=== PATIENT | male | born 1965 | race Hispanic/Latino ===

== ENCOUNTER → 2017-09-02 | Day surgery (SDC) | payer MEDICARE ==
[~2017-09-02] MED LIST: DEXTROSE 5% 250ML 250 ML IV ONE; FENTANYL CITRATE/PF 100MCG/2 ML INJ ONE; HYDRALAZINE HCL 20 MG/ML VIAL ONE; LANTUS 3ML100 UNITS/ SQ; MIDAZOLAM HCL 2 MG/2 ML VIAL ONE; MYFORTIC360 MG PO; NEORAL100 MG PO; NEORAL25 MG PO; NOVOLOG100 UNIT/1 SQ; OR PHACO EYE KIT ONE; PRAVASTATIN SOD40 MG PO; PREDNISONE5 MG PO; PREOP PHACO EYE KIT ONE; RAMIPRIL5 MG PO; SODIUM CHLORIDE 0.9% 500ML 0 ML ONE; TORSEMIDE10 MG PO; VITAMIN D1000 UNI1 PO
--- NOTE | 2017-09-02 18:28 | Operative Report ---
DATE OF PROCEDURE: September 02, 2017 PREOPERATIVE DIAGNOSES 1. Visually significant cataract of the right eye. 2. Poor dilation of the right eye. POSTOPERATIVE DIAGNOSES 1. Visually significant cataract of the right eye. 2. Poor dilation of the right eye. PROCEDURE: Complicated phacoemulsification with posterior chamber intraocular lens. ANESTHESIA: MAC. COMPLICATIONS: None. LENS: Monico SN60WF, 21.0-diopter lens. PROCEDURE IN DETAIL: The patient was taken to the operating room where he had tetracaine drops placed in the eye. The patient's eye was then prepped and draped in the usual sterile ophthalmic fashion. A lid speculum was placed in the eye. A side-port incision was made, and 0.2 mL of 1% lidocaine preservative free was injected in the anterior chamber. Viscoelastic was placed in the anterior chamber and a keratome was used to make a temporal clear cornea incision. Due to poor dilation and poor view of the cataract, a Malyugin ring was used to dilate the pupil, and then a cystotome and Utrata forceps were used to create an anterior capsulorrhexis without any complications. Hydrodissection and hydrodelineation were then performed, and a good fluid wave was noted. A phacoemulsification probe was placed in the eye, and the nucleus was phacoemulsified using the [id number] technique. Irrigation and aspiration handpiece was then used to remove any residual cortical material. Viscoelastic was placed in the capsular bag. An Monico SN60WF, 21.5-diopter lens was placed into the bag without any complications. The irrigation and aspiration handpiece was used to remove any residual viscoelastic material from within the eye. Miostat was injected in the anterior chamber. The wound was checked to make sure there was no evidence of leakage. Once this was done the Malyugin ring was then removed. Two drops of Vigamox were placed in the eye, along with Maxitrol ointment, patch and Allen shield. The patient tolerated the procedure well and was taken to the recovery room. The patient will be seen in my office tomorrow. Job#: [id number]
== END | disposition home or self-care (01) ==
LOC: OR 09:31
PROVIDERS: ATTEND Ophthalmology
DX: H25.11 Age-related nuclear cataract, right eye (principal); H57.09 Other anomalies of pupillary function; I69.398 Other sequelae of cerebral infarction; H53.8 Other visual disturbances; E11.22 Type 2 diabetes mellitus with diabetic chronic kidney disease; I12.0 Hypertensive chronic kidney disease with stage 5 chronic kidney disease or end stage renal disease; N18.6 End stage renal disease; Z94.0 Kidney transplant status; Z01.810 Encounter for preprocedural cardiovascular examination; Z79.4 Long term (current) use of insulin
CPT/HCPCS: 36415; 66982; 82948; 93005; J0360; J2250; V2632; J7040

== ENCOUNTER 2018-08-16 16:46 | Inpatient (IN) | payer MEDICARE ==
[~2018-08-16] VITALS: Ht 167.6 cm; Wt 76.2 kg
[~2018-08-16 16:46] MED LIST changes: -DEXTROSE 5% 250ML 250 ML IV ONE; -FENTANYL CITRATE/PF 100MCG/2 ML INJ ONE; -HYDRALAZINE HCL 20 MG/ML VIAL ONE; -MIDAZOLAM HCL 2 MG/2 ML VIAL ONE; -OR PHACO EYE KIT ONE; -PREOP PHACO EYE KIT ONE; -SODIUM CHLORIDE 0.9% 500ML 0 ML ONE
--- OUTSIDE RECORDS SUMMARY | 2018-08-16 16:49 | XMS REPORT ---
Author Author [facility] Address Unknown Phone Unavailable Care Team Providers [employer] Life Claims Examiner Name Role Phone Unavailable Unavailable Payers Payer Name Policy Type Policy Number Effective Date Expiration Date Problems This patient has no known problems. Allergies, Adverse Reactions, Alerts Allergy Name Allergy Type Status Severity Reaction(s) Onset Date Inactive Date Treating Clinician Comments No Known Allergies DA Active U 2011-08-16 00:00:00 Medications This patient has no known medications.
[2018-08-16] MEDS ORDERED: HYDROCODONE/APAP 10MG-325MG TAB PO ONE (17:00)
[2018-08-16] MEDS ORDERED: SODIUM CHLORIDE FLUSH 10 ML SYR INJ PRN (17:30)
[2018-08-16] MEDS ORDERED: VANCOMYCIN 1GM/NS 250 ML 250 ML IV SCH (17:30)
[2018-08-16] MEDS ORDERED: MORPHINE SULFATE INJ 4 MG/ML INJ 1ML IV PRN (17:30)
--- NOTE | 2018-08-16 17:39 | Diagnostic Imaging Report ---
Exam: Right foot 3 views History: Pain, evaluate for gas Comparison: None. Findings: Erosive change involving the proximal phalanx with cortical destruction medially. Erosive change of the distal phalanx third toe. Mild multilevel degenerative change. Vascular calcifications. Impression: Possible osteomyelitis of the proximal phalanx of the hallux and distal phalanx of the third toe. No soft tissue gas. Signed by: Dr. Dl Borden M.D. on 08/16/2018 5:35 PM
[2018-08-16] MEDS ORDERED: DEXTROSE 50% SYRINGE 50 ML IV PRN (17:45)
[2018-08-16 18:15] LABS: BASOPHILS % 0.1 % (0.0-1.0); EOSINOPHILS % 0.2 % (0.0-6.0); HEMATOCRIT 34.8 % (38.2-49.6); HEMOGLOBIN 11.2 g/dL (14.0-18.0); LYMPHOCYTES # (AUTO) 1.1 (1.0-3.2); LYMPHOCYTES % 7.4 % (18.0-39.1); MEAN CORPUSCULAR HGB CONC 32.2 g/dL (31-35); MEAN CORPUSCULAR VOLUME 90.2 fL (81-99); MONOCYTES # (AUTO) 1.1 (0.2-0.8); MONOCYTES % 7.5 % (4.4-11.3); NEUTROPHILS # (AUTO) 12.1 (2.1-6.9); NEUTROPHILS % 84.5 % (38.7-80.0); PLATELET COUNT 296 x10e3/uL (140-360); RED BLOOD COUNT 3.86 x10e6/uL (4.3-5.7); RED CELL DISTRIBUTION WIDTH 12.2 % (11.7-14.4)
[2018-08-16 18:21] LABS: ALBUMIN/GLOBULIN RATIO 0.6 (0.8-2.0); ANION GAP 14.6 mmol/L (8-16); CALCIUM 10.1 mg/dL (8.4-10.2); CREATININE, SERUM 2.3 mg/dL (0.72-1.25); POTASSIUM 4.6 mmol/L (3.5-5.1)
[2018-08-16 18:32] LABS: BILIRUBIN,URINE NEGATIVE (NEGATIVE); CLARITY,URINE CLEAR (CLEAR); COLOR,URINE YELLOW (YELLOW); KETONES,URINE NEGATIVE (NEGATIVE); LEUKOCYTE ESTERASE ,URINE NEGATIVE (NEGATIVE); NITRITE,URINE NEGATIVE (NEGATIVE); PROTEIN,URINE DIPSTICK NEGATIVE (NEGATIVE); URINE UROBILINOGEN 0.2 mg/dL (0.2 - 1)
[2018-08-16 18:36] LABS: RBC,URINE 0-5 /HPF (0-5); WBC,URINE (MAN) 0-5 /HPF (0-5)
[2018-08-16 18:37] LABS: EPITHELIAL CELLS,URINE RARE /LPF
--- NOTE | 2018-08-16 18:37 | NUR ---
Patient admitted to unit from ER. Patient arrived via stretcher. patient is AAOx3. Patient lung pedro clear to auscultation. Bowel sounds present x4. 2+ edema noted to right foot with pedal pulses palpable. Patient ambulates on his own with assist due to right foot pain. Right foot third toe necrotic with redness up the foot. No c/o pain at this time. Right wrist 20G IV in place. No s/s of distress noted.
[2018-08-16 18:49] VITALS: BP 189/76
[2018-08-16] MEDS ORDERED: PLAVIX75 MG PO (18:49)
[2018-08-16 18:50] VITALS: BP 189/76
[2018-08-16 19:10] VITALS: BP 189/76
--- NOTE | 2018-08-16 19:10 | NUR ---
PATIENT LYING IN BED, NO DISTRESS OBSERVED. REDNESS TO THE RIGHT FOOT WITH 3RD DIGIT ON THE RIGHT FOOT NECROTIC. FOUL ODOR NOTED FROM THE TOE, NO DRAINAGE OBSERVED AND PATIENT DENIES PAIN TO THE FOOT. RIGHT LEG ELEVATED ON PILLOW FOR COMFORT, CALL LIGHT AND URINAL WITHIN EASY REACH, PATIENT INSTRUCTED TO CALL FOR ASSISTANCE NEEDED.
[2018-08-16 20:38] VITALS: BP 152/87
[2018-08-16] MEDS: CYCLOSPORINE 25 MG CAP PO SCH (21:00)
[2018-08-16] MEDS: RAMIPRIL 5 MG CAP PO SCH (21:00)
[2018-08-16] MEDS: INSULIN REGULAR, HUMAN 100 UNIT/1 ML 3ML VIAL SQ SCH (21:00)
--- NOTE | 2018-08-16 21:20 | NUR ---
PATIENT STATED HE PREFERS TO TAKE HIS OWN ANTIREJECTION MEDICATION AND BLOOD PRESSURE MEDICATION. BLOOD PRESSURE 152/87, HEART RATE 71, PATIENT HAS TAKEN HIS MEDICATIONS.
[2018-08-16] MEDS ORDERED: PIPER-TAZ 3.375 GM 50 ML IV SCH (22:00)
[2018-08-16] MEDS ORDERED: SODIUM CHLORIDE 0.9% 50ML 50 ML ONE (23:12)
[2018-08-16] MEDS: PIPERACILLIN/TAZO 2.25 GM 50 ML IV SCH (23:17)
[2018-08-17] VITALS (8 sets, daily range): BP systolic 141–186; BP diastolic 49–69
--- NOTE | 2018-08-17 01:10 | NUR ---
WALKING ROUNDS MADE, PATIENT IS SOUNDLY ASLEEP WITHOUT RESPIRATORY DISTRESS. URINAL AND CALL LIGHT WITHIN EASY REACH.
[2018-08-17] MEDS ORDERED: VANCOMYCIN 500MG/NS 0.9% 100ML 100 ML IV SCH (05:00)
[2018-08-17] MEDS: PIPERACILLIN/TAZO 2.25 GM 50 ML IV SCH (06:05)
--- NOTE | 2018-08-17 07:00 | NUR ---
RCD PT AT BED PT IS ALERT AND ORIENTED ASSESSMENT DONE PT RESTING ON BED IV PATENT FAMILY AT BED SIDE BED LOW AND LOCKED CALL LIGHT IN REACH
[2018-08-17] MEDS: INSULIN LISPRO 100 UNIT/1 ML 3ML VIAL SQ SCH ×2 (07:30→16:30)
[2018-08-17] MEDS: INSULIN REGULAR, HUMAN 100 UNIT/1 ML 3ML VIAL SQ SCH ×4 (07:30→21:00)
[2018-08-17] MEDS: TORSEMIDE 10 MG TAB PO SCH ×2 (09:00→16:18)
[2018-08-17] MEDS: CHOLECALCIFEROL 1,000 UNIT TAB PO SCH (09:00)
[2018-08-17] MEDS: CLOPIDOGREL BISULFATE 75 MG TAB PO SCH (09:00)
[2018-08-17] MEDS: INSULIN GLARGINE 100 UNITS/ML VIAL SQ SCH (09:00)
[2018-08-17] MEDS: PREDNISONE 5 MG TAB PO SCH (09:00)
--- NOTE | 2018-08-17 09:14 | NUR ---
IMM letter delivered and explained to pt. He verbalized understanding. Pt stated that he prefers to have a Kinyarwanda copy. Kinyarwanda copy provided to pt. Signed copy filed in chart.
--- NOTE | 2018-08-17 11:51 | NUR ---
WOUND CARE CONSULTATION- INITIAL EVALUATION Patient admitted from Home to ER for pain to right foot with redness and swelling and bad odor. DX: Cellulitis of Right Foot with Gangrene of Toes HX: DM, HTN, CVA, Kidney Transplant. Wound Care Consulted for foot Ulcers. Dr. Mondragon on case for Cellulitis of foot and ABX management. Patient on IV ABX Dr. Ayden Miller consulted for Foot Ulcer Management. LABS: WBC14.31 HGB11.2 HCT34.8 NEUT%84.5 UJA205 ALB3.0 Foot X-Ray - Possible OM of proximal phalanx of hallux & Distal phalanx of 3rd Toe. No Soft Tissue gas. PATIENT VISIT: - Patient Pashto speaking primarily. Speaks some Qatari. - Patient is AAOX4. Calm and cooperative. - States right foot ulcers started when trimming toe nails and progressively worsened. - States - Dr. Rhodes performed angiogram March 2018 due to poor circulation with care afterwards of foot ulcers treated conservatively. - Right foot open to air during visit. Malodorous. - Tissue necrosis at 2nd and 3rd toes with mild erythema extending to dorsal mid foot. - Palpable but very weak dorsalis pedis and posterior tibial pulses present. - Dr. Paul Hensley to manage care of foot ulcers. IMPRESSION: Right Foot 2nd and 3rd Toe - DFU Grade 4. RECOMMENDATION: Conservative treatment at this time until evaluated by Dr. Ayden Miller. DPM 1. Right Foot 2nd and 3rd Toe - DFU Grade 4: - Cleanse area with Betadine moistened gauze - Apply Betadine moistened gauze dressing and wrap lightly with Kerlix Bandage 2. NWB Right Foot. Addendum: 08/17/18 at 1207 by Chema Calvert RN Amended: Links added.
[2018-08-17] MEDS: CEFEPIME 1GM/NS 0.9% 50 ML 50 ML IV SCH (14:45)
[2018-08-17] MEDS ORDERED: CEFEPIME HCL 1 GM VIAL IV SCH (14:45)
--- NOTE | 2018-08-17 15:16 | Diagnostic Imaging Report ---
Exam: Left foot 3 views History: Wound Comparison: None. Findings: Acute nondisplaced transverse fracture of the base of the fifth metatarsal with extension into the tarsometatarsal joint. Erosive changes about the first interphalangeal joint. Atherosclerotic vascular calcifications. No gross soft tissue defect or subcutaneous gas. Impression: Acute nondisplaced intra-articular fracture of the base of the fifth metatarsal. Lucencies in the proximal and distal phalanges of the hallux may represent subchondral cysts in the absence of erosive changes of the articular surfaces. Septic arthritis is felt to be less likely, though further evaluation with MRI with and without contrast may be obtained if clinically warranted. Signed by: Dr. Kevin Honeycutt M.D. on 08/17/2018 3:13 PM
--- NOTE | 2018-08-17 16:30 | NUR ---
Nutrition Screen Note RD Recommendation for Physician: -Continue ADA diet as ordered Plan of Care: RD following, monitoring for tolerance and adequacy Nutrition reason for involvement: Nutrition Risk Trigger MST Primary Diagnose(s): Cellulitis of Right Foot with Gangrene of Toes PMH: DM, HTN, CVA, Kidney Transplant. Ht: 66in Wt: 154lb BMI: 24.9kg/m2 IBW: 142lb RD Assessment: (3) Chart reviewed. Labs and meds reviewed. 52yo M, who was admitted for pain to right foot with redness, swelling and bad odor. Wound care following. On IV abx, Prednisone, and insulin. BG 88 156. Visited pt in room who denied significant wt loss, denied decrease in appetite RX SPECIALIST. Pt denied chewing/swallowing problems and nausea/vomiting. Pt has had fair appetite since admission. Will continue to monitor and follow. Please consult as needed. Current Diet: ADA diet Malnutrition Evaluation (08/17) The patient does not meet criteria for a specified degree of malnutrition at this time. Will re-evaluate at follow-up as appropriate. Diet Education Needs Assessment: Diet education not indicated. Nutrition Care Level: low Signed: Luma Laws, MS, RD, LD
--- NOTE | 2018-08-17 19:00 | NUR ---
PATIENT RESTING ON BED BED SIDE REPORT GIVEN TO ONCOMING NURSE
[2018-08-17] MEDS: CYCLOSPORINE 25 MG CAP PO SCH (21:00)
[2018-08-17] MEDS: RAMIPRIL 5 MG CAP PO SCH (21:00)
--- NOTE | 2018-08-17 22:41 | Consultation ---
DATE OF CONSULTATION: Consultation Note REASON FOR CONSULTATION: Right foot infection, gangrenous 3rd toe, recommendation of antibiotics. HISTORY OF PRESENT ILLNESS: This patient is a very pleasant 52-year-old Ethiopian male with diabetes mellitus, atherosclerotic disease, and peripheral vascular disease and hypertension. The patient comes in with gangrenous changes of his right 3rd toe. There is no specific trauma, but apparently, he is having some problem with his foot on the right for a few weeks now. He is known to Cardiology and he is also known to Podiatry. He is beginning oral antibiotic, but in spite of that, his foot is getting progressively worse. The patient is being admitted for vascular workup and amputation of the toe. I was asked to see him. Currently, lying in bed. He has no complaints. There is no pain, fever, chills, nausea, vomiting, or diarrhea. PAST MEDICAL HISTORY: Diabetes mellitus and atherosclerotic disease. PAST SURGICAL HISTORY: Denies. ALLERGIES: NKA. SOCIAL HISTORY: There is no smoking, drug abuse, or drug abuse. FAMILY HISTORY: Unremarkable. REVIEW OF SYSTEMS: HEENT: Negative. PULMONARY: Negative. CARDIAC: Negative. : Negative. SKIN: There is no other rash. PHYSICAL EXAMINATION: GENERAL: He is currently alert and oriented, does not seem to be in acute distress. VITAL SIGNS: Stable. Currently afebrile. HEENT: Not icteric. NECK: Supple. CHEST: Clear. HEART: S1 and S2, normal. ABDOMEN: Soft. Bowel sounds present. No tenderness. EXTREMITIES: On the right foot, there is gangrene change in the distal 3rd of the toe. IMPRESSION: 1. Gangrene of the 3rd toe, osteomyelitis, and peripheral vascular disease. Agree with vancomycin and agree with Zosyn. He will probably end up with the amputation of the toe. We will get an x-ray and MRI to assess for osteomyelitis and the extent of the infection. 2. Chronic kidney disease. 3. Atherosclerotic disease. We will adjust his medication accordingly. 4. We will follow. MD LUPE Piedra/JESENIA /[id number]
--- NOTE | 2018-08-17 22:46 | Consultation ---
DATE OF CONSULTATION: 08/17/2018 REASON FOR CONSULTATION: Gangrenous changes with cellulitis to the right foot with the patient being an insulin-dependent diabetic. HISTORY OF PRESENT ILLNESS: This is a pleasant 52-year-old male, who is seen at bedside accompanied by his spouse, who relates that he has had some issues to the forefoot aspect of the right foot for at least 5-6 months now. It started with bullae formation, abscess to the distal aspect of the third digit right foot, which became malodorous and black according to the patient several days ago. Also, it is starting to have discoloration to the second toe of the right foot and also discoloration to the fourth digit of the right with some ecchymoses also noted to the dorsolateral aspect to the left lower extremity after suffering a fall 2 weeks ago. The patient currently deny any history of fever or chills, vomiting nausea. PAST MEDICAL HISTORY: Remarkable for insulin-dependent diabetes, hypertension, CVA which affected his right lower extremity several years ago. PAST SURGICAL HISTORY: Remarkable for kidney transplant back in 2005, LASIK surgery for his eyes. ALLERGIES: THE PATIENT DENIES. CURRENT MEDICATIONS: Note listed in the chart including IV vancomycin and Zosyn. SOCIAL HISTORY: The patient denies any smoking, drinking, or recreational drug use. He has 1 kid, lives with his . FAMILY HISTORY: Noncontributory. LABORATORY DATA: white blood cell count of 14.3, hemoglobin 11.2, hematocrit 34.8 with a platelet count of 296. Blood glucose of 156. REVIEW OF SYSTEMS: CARDIAC: Denies any palpitations or arrhythmias. RESPIRATORY: Denies any shortness of breath or productive cough. GASTROINTESTINAL: Denies any diarrhea or constipation. GENITOURINARY: Denies any hematuria or problems voiding. PHYSICAL EXAMINATION: VITAL SIGNS: Afebrile, pulse rate 77, respirations 20, blood pressure 169/60, and O2 saturation 96%. PODIATRIC: Reveals the following vasculature, pedal pulses both the DP and PT to both lower extremities are greatly diminished. Skin temperature is warm and cold to touch. NEUROLOGIC: Reveals a decreased and protective sensation a Minerva-Quinn 5.07 monofilament wire. Muscle mass is symmetrical. Muscle strength is 3-4 out of 5 to all muscle groups of right foot, 4-5 out of 5 to all muscle groups of left. DERMATOLOGIC: Reveals dry gangrenous changes noted to the third digit of the right foot with some foul smell present. Gangrenous changes noted to the lateral aspect of second digit of the right foot with ulcer down to bone and some discoloration to the forefoot aspect of the right foot also discoloration to the fourth digit right. Ecchymoses noted to the left foot overlying the left foot and ankle area. ASSESSMENT: Gangrene, peripheral arterial disease, diabetic neuropathy with a grade 4 ulcer. PLAN: We will continue diluted wet-to-dry Betadine. We will let the foot demarcate. Dr. Jonathon Elizalde will be consulted for vascular evaluation. CBC with differential will be reevaluated. X-rays, 3 views of the left foot will be ordered. We will continue to treat the patient conservatively to see exactly at what level, both the patient and the patient's spouse understand that there will be an amputation needed, level to be determined. The patient may be scheduled possibly on or Friday depending on the demarcation of foot. BARBARA Roa/MIREYAL /[id number]
[2018-08-18] VITALS (8 sets, daily range): BP systolic 140–176; BP diastolic 60–74
[2018-08-18 05:51] LABS: BASOPHILS % 0.3 % (0.0-1.0); EOSINOPHILS # (AUTO) 0.1 (0.0-0.4); EOSINOPHILS % 0.5 % (0.0-6.0); HEMATOCRIT 29.8 % (38.2-49.6); HEMOGLOBIN 9.5 g/dL (14.0-18.0); LYMPHOCYTES # (AUTO) 1.6 (1.0-3.2); LYMPHOCYTES % 14.6 % (18.0-39.1); MEAN CORPUSCULAR HEMOGLOBIN 28.8 pg (28-32); MEAN CORPUSCULAR HGB CONC 31.9 g/dL (31-35); MEAN CORPUSCULAR VOLUME 90.3 fL (81-99); MONOCYTES % 9.2 % (4.4-11.3); NEUTROPHILS # (AUTO) 8.3 (2.1-6.9); NEUTROPHILS % 75.1 % (38.7-80.0); PLATELET COUNT 286 x10e3/uL (140-360); RED CELL DISTRIBUTION WIDTH 11.9 % (11.7-14.4)
--- NOTE | 2018-08-18 07:10 | NUR ---
REPORT GIVEN TO ONCOMING NURSE,WALKING ROUNDS MADE.PT RESTING IN BED WITH NO S/S OF DISTRESS.
[2018-08-18] MEDS: INSULIN LISPRO 100 UNIT/1 ML 3ML VIAL SQ SCH ×2 (07:30→16:30)
[2018-08-18] MEDS: INSULIN REGULAR, HUMAN 100 UNIT/1 ML 3ML VIAL SQ SCH ×4 (07:30→20:30)
--- NOTE | 2018-08-18 07:55 | Diagnostic Imaging Report ---
TECHNIQUE: Magnetic resonance imaging of the RIGHT foot was performed WITHOUT injected contrast. HISTORY: Pain COMPARISON: X-ray August 17, 2018 DISCUSSION: Limited evaluation due to incomplete fat suppression. Multifocal abnormal marrow signal forefoot including the proximal phalanx, first metatarsal and scattered around the tarsometatarsal joints with complex effusions. Around these areas, no visualized ulceration or sinus tract. Bone marrow edema and T1 replacement involving the distal phalanx of the second toe with abnormal adjacent ulceration. Generalized soft tissue edema and swelling. Fifth metatarsal base fracture not visualized. IMPRESSION: Osteomyelitis of the distal phalanx second toe. Multifocal abnormal marrow signal in an articular distribution with hypointense signal. Findings may be related to gout arthropathy or amyloid arthropathy Signed by: Dr. Dl Borden M.D. on 08/18/2018 7:52 AM
[2018-08-18] MEDS: INSULIN GLARGINE 100 UNITS/ML VIAL SQ SCH (09:00)
[2018-08-18] MEDS: PREDNISONE 5 MG TAB PO SCH (09:00)
[2018-08-18] MEDS: VANCOMYCIN 500MG/NS 0.9% 100ML 100 ML IV SCH (09:00)
[2018-08-18] MEDS: CLOPIDOGREL BISULFATE 75 MG TAB PO SCH (09:00)
[2018-08-18] MEDS: CHOLECALCIFEROL 1,000 UNIT TAB PO SCH (09:00)
[2018-08-18] MEDS: TORSEMIDE 10 MG TAB PO SCH ×2 (09:00→17:00)
[2018-08-18] MEDS ORDERED: SODIUM CHLORIDE 0.9% 250ML 250 ML ONE (10:04)
[2018-08-18] MEDS: CEFEPIME 1GM/NS 0.9% 50 ML 50 ML IV SCH (14:45)
--- NOTE | 2018-08-18 16:11 | Progress Note ---
DATE: 08/18/2018 SUBJECTIVE: The patient seen at bedside, doing somewhat better. Denies any history of fever, chills, nausea, or vomiting. OBJECTIVE: VITALS SIGNS: Afebrile, pulse rate 78, respiration 18, blood pressure 148/65, O2 saturation 97%. LABORATORY DATA: Labs show white blood cell count dropping to 11.3 from 14.3, hemoglobin 9.5, hematocrit 29.8 with a platelet count of 286, blood glucose of 116. Dry gangrenous changes noted to the third digit right foot with pregangrenous changes noted to the second toe, right with grade 3 ulceration/4 ulceration lateral aspect, second toe, right foot. Pedal pulses diminished. Decreased cellulitis noted to the dorsal aspect right foot. ASSESSMENT: Peripheral arterial disease with dry gangrene, grade 3/4 ulceration with pregangrenous changes noted to the second toe, right. We will continue to treat conservatively. Continue IV antibiotics. Awaiting vascular evaluation. The patient will end up needing surgical intervention sometime this week upon full demarcation. BARBARA Roa/JESENIA /[id number]
[2018-08-18] MEDS: ACETAMINOPHEN 325 MG TAB PO PRN (16:30)
--- NOTE | 2018-08-18 18:46 | NUR ---
PATIENT RESTING ON BED BED SIDE REPORT GIVEN TO ONCOMING NURSE
[2018-08-18] MEDS: CYCLOSPORINE 25 MG CAP PO SCH (21:00)
--- NOTE | 2018-08-18 22:32 | Consultation ---
DATE OF CONSULTATION: 08/18/2018 Cardiology consultation. CONSULTING PHYSICIAN: Jonathon Elizalde MD, Interventional Cardiology. REASON FOR CONSULTATION: Peripheral vascular disease. HISTORY OF PRESENT ILLNESS: Mr. Gordon is a 52-year-old man with a history of diabetes mellitus, hypertension, remote CVA, and CKD status post renal transplant in 2005, presenting with a gangrene and foul smell of the right 2nd toe tip and right 3rd distal to mid toe. He has been seen by Podiatry and is undergoing antibiotic treatment guided by Infectious Disease. Particularly, concerned given his immunosuppressed state, the foul smell and infection, for which he has been admitted. His most recent creatinine was 2.3. His most recent hemoglobin was 9.5 and his white count was 11,000. He did have prior revascularization to lower extremity. This new change occurred within the last week. REVIEW OF SYSTEMS: A 12-system reviewed, negative except for as noted above. Denies chest pain or shortness of breath. PAST MEDICAL HISTORY: As per HPI. ALLERGIES: NO KNOWN DRUG ALLERGIES. SOCIAL HISTORY: No active smoking, alcohol, or drugs. PHYSICAL EXAMINATION: VITAL SIGNS: Temperature 100.7, heart rate 76, blood pressure 146/62, respiratory rate 16, and O2 saturation 95%. GENERAL: In no acute distress, alert. NECK: No JVD. CHEST: Clear to auscultation. CARDIOVASCULAR: Regular rate and rhythm. Normal S1, S2. ABDOMEN: Soft, nontender. EXTREMITIES: Trace edema. Right 2nd and 3rd toe gangrene. LABORATORY DATA: Potassium 4.6, creatinine 2.3. White blood cells 11,000, hemoglobin 9.5, and platelets 286. Normal transaminases. CARDIOVASCULAR MEDICATIONS: Reviewed. Prednisone 5 mg daily, clopidogrel 75 mg daily, torsemide 10 mg b.i.d., cefepime and vancomycin, ramipril 10 mg at bedtime, cyclosporine 100 mg at bedtime. ASSESSMENT: 1. Peripheral vascular disease, presenting with osteomyelitis of the 2nd toe and gangrenous 2nd and 3rd toe with associated foul smell consistent with infection/cellulitis. 2. Anemia. 3. Chronic kidney disease in a patient with previous renal transplantation, on immunosuppressants. 4. Diabetes mellitus. 5. Hypertension. 6. Dyslipidemia. RECOMMENDATIONS: Arterial Doppler to assess the level of disease has been ordered. The patient will be at elevated risk of renal failure/contrast-induced nephropathy. Angiography for assessment of level of amputation advised and we will arrange if the patient is agreeable within the next 48 hours. Continue current cardiovascular medication. I thank Dr. Benoit, Dr. Miller, and Dr. Scott for the opportunity to participate in the care of this patient. Jonathon Elizalde MD AFMadeleine/MODL /[id number] MTDD
[2018-08-19] VITALS (7 sets, daily range): BP systolic 142–185; BP diastolic 63–82
[2018-08-19] MEDS: ACETAMINOPHEN 325 MG TAB PO PRN
[2018-08-19] MEDS: HYDRALAZINE HCL 25 MG TAB PO PRN (00:05)
[2018-08-19 05:08] LABS: BASOPHILS % 0.2 % (0.0-1.0); EOSINOPHILS % 0.2 % (0.0-6.0); HEMATOCRIT 34.6 % (38.2-49.6); LYMPHOCYTES # (AUTO) 1.2 (1.0-3.2); LYMPHOCYTES % 8.3 % (18.0-39.1); MEAN CORPUSCULAR HEMOGLOBIN 28.4 pg (28-32); MEAN CORPUSCULAR HGB CONC 31.8 g/dL (31-35); MEAN CORPUSCULAR VOLUME 89.4 fL (81-99); MONOCYTES # (AUTO) 1.2 (0.2-0.8); MONOCYTES % 8.2 % (4.4-11.3); NEUTROPHILS # (AUTO) 12.2 (2.1-6.9); NEUTROPHILS % 82.6 % (38.7-80.0); PLATELET COUNT 307 x10e3/uL (140-360); RED BLOOD COUNT 3.87 x10e6/uL (4.3-5.7); RED CELL DISTRIBUTION WIDTH 11.9 % (11.7-14.4)
[2018-08-19 05:43] LABS: ALBUMIN 2.3 g/dL (3.5-5.0); ALBUMIN/GLOBULIN RATIO 0.5 (0.8-2.0); ALKALINE PHOSPHATASE 85 IU/L (40-150); ANION GAP 13.9 mmol/L (8-16); BLOOD UREA NITROGEN 34 mg/dL (7-26); BUN/CREATININE RATIO 17 (6-25); CALCIUM 9.5 mg/dL (8.4-10.2); CARBON DIOXIDE 25 mmol/L (22-29); CHLORIDE 99 mmol/L (98-107); CREATININE, SERUM 1.97 mg/dL (0.72-1.25); EST GLOMERULAR FILTRATION RATE 36 ML/MIN (60-); GLUCOSE 229 mg/dL (74-118); POTASSIUM 4.9 mmol/L (3.5-5.1); SODIUM 133 mmol/L (136-145)
[2018-08-19 05:44] LABS: ALANINE AMINOTRANSFERASE < 6 IU/L (0-55)
--- NOTE | 2018-08-19 07:16 | NUR ---
REPORT GIVEN TO ONCOMING NURSE,WALKING ROUNDS MADE.PT RESTING IN BED WITH NO S/S OF DISTRESS.
[2018-08-19] MEDS: INSULIN REGULAR, HUMAN 100 UNIT/1 ML 3ML VIAL SQ SCH ×4 (08:07→21:51)
[2018-08-19] MEDS: INSULIN LISPRO 100 UNIT/1 ML 3ML VIAL SQ SCH ×2 (08:07→16:22)
--- NOTE | 2018-08-19 08:48 | NUR ---
IMM letter delivered and explained to pt. He verbalized understanding. Signed copy placed in chart. Copy to pt.
[2018-08-19] MEDS: INSULIN GLARGINE 100 UNITS/ML VIAL SQ SCH (09:11)
[2018-08-19] MEDS: TORSEMIDE 10 MG TAB PO SCH ×2 (09:17→17:15)
[2018-08-19] MEDS: VANCOMYCIN 500MG/NS 0.9% 100ML 100 ML IV SCH (09:17)
[2018-08-19] MEDS: CHOLECALCIFEROL 1,000 UNIT TAB PO SCH (09:18)
[2018-08-19] MEDS: PREDNISONE 5 MG TAB PO SCH (09:18)
[2018-08-19] MEDS ORDERED: SODIUM CHLORIDE 0.9% 1000ML 1,000 ML IV SCH (11:14)
[2018-08-19] MEDS: CLOPIDOGREL BISULFATE 75 MG TAB PO SCH (11:30)
--- NOTE | 2018-08-19 13:05 | Progress Note ---
DATE: 08/19/2018 SUBJECTIVE: The patient seen at bedside, doing better. Denies any history of fever, chills, nausea, vomiting. OBJECTIVE: VITALS SIGNS: Afebrile, pulse rate 69, respirations 18, blood pressure 149/74, O2 saturation 98%. EXTREMITIES: Pedal pulses are diminished. Skin temperature is warm and cool to touch. Gangrenous changes noted to the 3rd digit right foot with some foul smell present with pregangrenous changes noted to the 2nd digit, right lower extremity. LABORATORY DATA: Labs show white blood cell count of 14.7, hemoglobin of 11.0 with a hematocrit of 34.6 with a platelet count of 307. ASSESSMENT: Cellulitis, dry gangrene, 3rd digit, right foot; pregangrene 2nd digit, right. PLAN: We will continue to let the foot demarcate. The patient will be scheduled for definitive procedure on Friday morning. The patient being evaluated per Dr. Rhodes for his vascular supply. Continue IV antibiotics. Continue local wound care. BARBARA Roa/JESENIA /[id number]
[2018-08-19] MEDS: CEFEPIME 1GM/NS 0.9% 50 ML 50 ML IV SCH (15:05)
--- NOTE | 2018-08-19 15:05 | Progress Note ---
DATE: 08/19/2018 Cardiology Progress Note SUBJECTIVE: No complaints. OBJECTIVE: VITAL SIGNS: Temperature 97.8, heart rate 69, blood pressure 149/74, respiratory rate 18, and O2 saturation 98% on room air. GENERAL: No acute distress, alert. NECK: No JVD. CHEST: Clear to auscultation. CARDIOVASCULAR: Regular rate and rhythm. Normal S1 and S2. ABDOMEN: Soft. EXTREMITIES: Trace edema. Erythema in the forefoot of the right foot second and third toe gangrene with foul smell. MEDICATIONS: Cardiovascular medications reviewed. Clopidogrel 75 mg daily, torsemide 10 mg b.i.d., hydralazine 50 mg every 6 hours, cyclosporine 100 mg at bedtime, prednisone 5 mg daily, cefepime and vancomycin. LABORATORY DATA: Studies reviewed. Creatinine 1.9. Hemoglobin 11, platelets 307, and white blood cells 14.7. ASSESSMENT: 1. Right second and third toe gangrene with associated cellulitis and osteomyelitis. 2. Peripheral arterial disease, status post prior right anterior tibial revascularization with CO2 limited dye protocol now presenting with monophasic waveforms to the right anterior tibial which feeds angiosome for the patient's gangrenous foot changes location. 3. Diabetes mellitus. 4. Chronic kidney disease, status post orthotopic transplantation of the kidney, on immunosuppressive therapy. 5. Hypertension and dyslipidemia. RECOMMENDATIONS: 1. Elevated risk for adverse cardiovascular outcomes, particularly contrast- induced nephropathy with peripheral angiography, however, does need angiographic evaluation to assess level of amputation. The patient would like to proceed understanding risks. 2. Start beta-odell and continue rest of cardiovascular medications. 3. Moderate risk for adverse cardiovascular outcomes with foot surgery. Will need amputation level, which depend on the patient's clinical progression and angiographic evaluation. We will coordinate care with Podiatry. MD KEIRA Lea/JESENIA /[id number]
[2018-08-19] MEDS: CYCLOSPORINE 25 MG CAP PO SCH (21:00)
--- NOTE | 2018-08-19 21:51 | NUR ---
HIGH BS 303 NOTED, PATIENT REQUESTED TO HAVE 5 UNITS OF INSULIN INSTEAD OF 12 UNITS PER MAR. PATIENT STATED HIS BS WILL DROP VERY LOW OVER THE NIGHT. SNACK GIVEN
[2018-08-20] VITALS (25 sets, daily range): BP systolic 136–182; BP diastolic 33–79
[2018-08-20] MEDS: ACETAMINOPHEN 325 MG TAB PO PRN (00:41)
[2018-08-20 05:01] LABS: BASOPHILS % 0.2 % (0.0-1.0); EOSINOPHILS # (AUTO) 0.1 (0.0-0.4); EOSINOPHILS % 0.5 % (0.0-6.0); LYMPHOCYTES # (AUTO) 1.8 (1.0-3.2); LYMPHOCYTES % 13.7 % (18.0-39.1); MEAN CORPUSCULAR HEMOGLOBIN 28.2 pg (28-32); MEAN CORPUSCULAR HGB CONC 31.3 g/dL (31-35); MEAN CORPUSCULAR VOLUME 90.1 fL (81-99); MONOCYTES # (AUTO) 1.2 (0.2-0.8); MONOCYTES % 9.7 % (4.4-11.3); NEUTROPHILS # (AUTO) 9.6 (2.1-6.9); NEUTROPHILS % 75.5 % (38.7-80.0); PLATELET COUNT 312 x10e3/uL (140-360); RED BLOOD COUNT 3.55 x10e6/uL (4.3-5.7)
[2018-08-20 05:18] LABS: INR 1.06; PROTHROMBIN TIME 14.3 seconds (11.9-14.5)
[2018-08-20 05:19] LABS: PARTIAL THROMBOPLASTIN TIME 36.7 seconds (23.8-35.5)
[2018-08-20 05:36] LABS: ALBUMIN 2.2 g/dL (3.5-5.0); ALBUMIN/GLOBULIN RATIO 0.5 (0.8-2.0); ANION GAP 13.1 mmol/L (8-16); CALCIUM 9.5 mg/dL (8.4-10.2); CHOL/HDL RATIO 4.3 (3.9-4.7); CREATININE, SERUM 1.81 mg/dL (0.72-1.25); POTASSIUM 4.1 mmol/L (3.5-5.1)
[2018-08-20] MEDS: SODIUM CHLORIDE 0.9% 1000ML 1,000 ML IV SCH ×2 (06:55→15:00)
[2018-08-20] MEDS: INSULIN REGULAR, HUMAN 100 UNIT/1 ML 3ML VIAL SQ SCH ×4 (07:30→21:00)
[2018-08-20] MEDS: INSULIN LISPRO 100 UNIT/1 ML 3ML VIAL SQ SCH ×2 (07:30→16:30)
[2018-08-20] MEDS: INSULIN GLARGINE 100 UNITS/ML VIAL SQ SCH (09:01)
[2018-08-20] MEDS: VANCOMYCIN 500MG/NS 0.9% 100ML 100 ML IV SCH (09:01)
[2018-08-20] MEDS: TORSEMIDE 10 MG TAB PO SCH ×2 (09:01→17:00)
[2018-08-20] MEDS: CHOLECALCIFEROL 1,000 UNIT TAB PO SCH (09:02)
[2018-08-20] MEDS: PREDNISONE 5 MG TAB PO SCH (09:02)
[2018-08-20] MEDS: CLOPIDOGREL BISULFATE 75 MG TAB PO SCH (09:02)
[2018-08-20] MEDS: CEFEPIME 1GM/NS 0.9% 50 ML 50 ML IV SCH (14:12)
--- NOTE | 2018-08-20 15:00 | NUR ---
bedside report received from Heydi Suarez RN. Alert oriented and appropriate, PERRLA, respirations even and unlabored to room air. Pulses x2 equal and strong. Pedal pulses bialteral PT/DP doppler and marked. Right 2nd toe and gangrenous 2nd and 3rd toe with associated foul smell and discolor Cap fill brisk >3 sec with poor blanching. bialteral groin and flanks with "flaking" similiar to resolving psoriasismn which patient denies. pt states only dry skin. Skin warm and dry integrity appears intact in general except noted above. IV 20g to right forearm presents healthy w/o s/s of infiltration or complaint. Abdomen soft and supple. pt offered toileting, denies need to urinate or defecate. No personal affects with patient. Family in waiting room. patient transferred from [facility] by lab assistant escort on bed, telemetry pack left in room , transported on monitor. Currently w/o complaint of pain or need. Patient introduced to cath team and brief summary provided to team. Transferred to procedure table under own strength w/o duress. Patient secured to procedural table and patient prepped in usual fashion for Abdominal Angio and bilateral runoff procedure. Hypercapnia monitoring unavailable at this time. -cgf .
[2018-08-20] MEDS ORDERED: MIDAZOLAM HCL 2 MG/2 ML VIAL ONE (15:01)
[2018-08-20] MEDS ORDERED: FENTANYL CITRATE/PF 100MCG/2 ML INJ ONE (15:01)
[2018-08-20] MEDS ORDERED: HEPARIN SOD/SOD CHLORIDE 2,000 ML ONE (15:01)
[2018-08-20] MEDS ORDERED: IOPAMIDOL 300MG/ML 100 ML INFUS..BTL IV ONE (15:01)
[2018-08-20] MEDS ORDERED: LIDOCAINE HCL 1% LOCAL INJ 20 ML VIAL ONE ×2 (15:02→16:01)
[2018-08-20] MEDS ORDERED: SODIUM CHLORIDE 0.9% 1000ML 1,000 ML ONE (15:02)
--- NOTE | 2018-08-20 16:20 | Progress Note ---
DATE: 08/20/2018 SUBJECTIVE: The patient is seen at bedside, feeling somewhat better. Denies any history of fever, chills, nausea, or vomiting. OBJECTIVE: VITALS SIGNS: Afebrile, pulse rate 76, respirations 20, blood pressure 182/74, O2 saturation 98%. EXTREMITIES: Pedal pulses are diminished. The right lower extremity has gangrenous changes to the 3rd digit, right foot. Grade 3/4 ulceration lateral aspect, second toe right foot with also pregangrenous changes. Positive cellulitis with some foul smell present. LABORATORY DATA: Lab show a white blood cell count dropping to 12.6, hemoglobin 10.0, hematocrit 32.0 with a platelet count of 312. Has an INR of 1.06. ASSESSMENT: Peripheral arterial disease, gangrene, cellulitis with a grade 3/4 ulceration, second toe, right. PLAN: The patient will be undergoing angiogram and possible angioplasty with Dr. Rhodes today. Depending on findings, the patient may be taken for surgical intervention. Surgery will consist of I and D, right foot amputation, third toe, right foot with flap closure with possible partial amputation second digit right with also a flap rotational closure. The patient understands no guarantees or warranties can be given. BARBARA Roa/JESENIA /[id number]
[2018-08-20] MEDS ORDERED: CLOPIDOGREL BISULFATE 75 MG TAB ONE (16:49)
[2018-08-20] MEDS ORDERED: ASPIRIN 325 MG TAB ONE (16:50)
--- NOTE | 2018-08-20 17:00 | NUR ---
Received to [facility]cel[facility] lab[facility] recovery room #9, report from Trevor Hayward RN. A,A,O x3, VSS, denies pain, 7fr sheath to left groin, ijeoma. pedal pulses present via doppler. No complaints.
--- NOTE | 2018-08-20 17:40 | NUR ---
Act drawn per protocol, results 205.
--- NOTE | 2018-08-20 18:49 | NUR ---
ACT drawn per protocol, result is 180.
--- NOTE | 2018-08-20 18:57 | NUR ---
Report given to Reed MACIAS, review of procedural findings and medications given. VSS, denies pain, IV site patent with NS 0.9% at KVO by dial-flow. Pedal pulses present via doppler. No change in patient's status, at BS.
--- NOTE | 2018-08-20 19:03 | NUR ---
Report received from Mike Baron RN. VSS. Sheath in place to L groin. Dressing clean/dry/intact. No s/sx hematoma/bleeding. Bilateral pedal pulses via doppler. No c/o pain/discomfort voiced. at bedside. Bed in low position, SR upx2, call light in reach. Will continue to monitor.
--- NOTE | 2018-08-20 19:29 | NUR ---
Pt c/o feeling anxious and requested that his blood sugar be checked. Blood sugar = 38. [place] juice given and Dr. Rhodes notified. Awaiting response.
[2018-08-20] MEDS ORDERED: DEXTROSE 50% SYRINGE 50 ML IV ONE (19:36)
--- NOTE | 2018-08-20 19:36 | NUR ---
1 amp D50 given as ordered per Dr. Rhodes. Will recheck blood sugar in 15 minutes.
--- NOTE | 2018-08-20 19:48 | NUR ---
blood glucose = 180. Dr. Rhodes notified.
--- NOTE | 2018-08-20 19:54 | NUR ---
ACT drawn per protocol. YEZ=342. ok to pull sheath per Dr. Rhodes
--- NOTE | 2018-08-20 20:14 | NUR ---
Sheath pulled by Mike Ott RN. Pressure being held
--- NOTE | 2018-08-20 20:37 | NUR ---
hemostasis obtained. dressing applied to L groin puncture site. Pt instructed to call nurse if he notices anything wet, warm or sticky on his leg and pt is aware to hold pressure. verbalized understanding.
[2018-08-20] MEDS: CYCLOSPORINE 25 MG CAP PO SCH (21:00)
--- NOTE | 2018-08-20 21:15 | NUR ---
patient is back to unit. vital sign stable. left groin dressing noted, dry and intact. continue to monitor closely
[2018-08-21] VITALS (9 sets, daily range): BP systolic 133–181; BP diastolic 52–74
[2018-08-21] MEDS: ACETAMINOPHEN 325 MG TAB PO PRN ×2 (00:35→20:30)
[2018-08-21] MEDS: SODIUM CHLORIDE 0.9% 1000ML 1,000 ML IV SCH ×6 (00:46→23:15)
--- NOTE | 2018-08-21 02:17 | Progress Note ---
DATE: 08/20/2018 Cardiology Progress Note SUBJECTIVE: Denies any chest pain or shortness of breath, status post right AT HAND CLOTH EXAMINER with reestablishment of linear flow down to right toes. OBJECTIVE: VITAL SIGNS: Temperature 98.6, heart rate 74, blood pressure 181/79, respiratory rate 18, O2 saturation 99%. BMI 25.4. GENERAL: No acute distress, alert. NECK: No JVD. CHEST: Clear to auscultation. CARDIOVASCULAR: Regular rate and rhythm. Normal S1, S2. ABDOMEN: Soft. EXTREMITIES: No edema. Has palpable right dorsalis pedis pulse now. Improved erythema surrounding the toes, 2nd and 3rd right toe gangrene present. MEDICATIONS: Cardiovascular medications reviewed. Prednisone 5 mg daily, clopidogrel 75 mg daily, torsemide 10 mg b.i.d., cyclosporine 100 mg at bedtime, hydralazine 50 mg q.6 hours, status post aspirin, and Plavix today. LABORATORY DATA: Creatinine is 1.8. White blood cells 12.7, hemoglobin 10, and platelets 312. AST 10, ALT is 6. INR is 1.06. ASSESSMENT: 1. Peripheral vascular disease, status post right anterior tibial HAND CLOTH EXAMINER with reestablishment of linear flow down to foot. Does have a very poor outflow, particularly digits and plantar arteries are significantly diseased. He does have elevated chest for reocclusion. 2. Critical limb ischemia with right 2nd and 3rd toe gangrene and associated cellulitis. 3. Immunosuppressed state. 4. Status post renal transplant with chronic kidney disease, on immunosuppressive therapy. 5. Diabetes mellitus. 6. Hypertension. 7. Anemia. RECOMMENDATIONS: 1. Dual antiplatelet therapy. 2. We will discuss with Podiatry level of amputation. I would favor at this point limited digital amputations if feasible. 3. Continue rest of cardiovascular medications. Jonathon Elizalde MD AFMadeleine/MODL /[id number]
--- NOTE | 2018-08-21 04:30 | NUR ---
completed dressing tijerina right to foot.
[2018-08-21] MEDS: INSULIN REGULAR, HUMAN 100 UNIT/1 ML 3ML VIAL SQ SCH ×4 (07:30→20:25)
--- NOTE | 2018-08-21 08:40 | NUR ---
Spoke with pt at bedside. Pt stated that MD plans to do surgery on Friday. CM confirmed MD's surgical plan with GILBERTO Good.
[2018-08-21] MEDS: CLOPIDOGREL BISULFATE 75 MG TAB PO SCH (08:59)
[2018-08-21] MEDS: TORSEMIDE 10 MG TAB PO SCH (08:59)
[2018-08-21] MEDS: PREDNISONE 5 MG TAB PO SCH (08:59)
[2018-08-21] MEDS: CHOLECALCIFEROL 1,000 UNIT TAB PO SCH (08:59)
[2018-08-21] MEDS: VANCOMYCIN 500MG/NS 0.9% 100ML 100 ML IV SCH (08:59)
[2018-08-21] MEDS: CYCLOSPORINE 25 MG CAP PO SCH (09:01)
[2018-08-21] MEDS: INSULIN GLARGINE 100 UNITS/ML VIAL SQ SCH (09:44)
[2018-08-21] MEDS: INSULIN LISPRO 100 UNIT/1 ML 3ML VIAL SQ SCH ×2 (09:45→16:30)
--- NOTE | 2018-08-21 12:40 | Operative Report ---
DATE OF PROCEDURE: 08/20/2018 SURGEON: Jonathon Elizalde MD PROCEDURE INDICATION: Limb salvage for peripheral arterial disease. Critical limb ischemia and gangrene of 2nd and 3rd toe. PROCEDURE PERFORMED: 1. Abdominal aortogram. 2. Selective lower extremity angiography of right lower extremity. 3. Right anterior tibial FILLING WINDER with a 2.5 x 220 Ultraverse balloon. 4. Manual pressure hemostasis to left common femoral site. 5. Catheter placement in the aorta and third-order catheter placement from left common femoral artery to right femoral artery and additional third-order catheter placement from right femoral artery to right popliteal artery. PROCEDURE COMPLICATIONS: None. ESTIMATED BLOOD LOSS: Less than 15 mL. PROCEDURE SUMMARY: After consent was obtained, the patient was prepped and draped in a sterile fashion. The left common femoral artery site was locally infiltrated with 2% lidocaine and access was obtained with micropuncture kit, a 6-Greek sheath was placed. All catheters were railed over leading wire. An Omni Flush catheter was positioned in the distal descending abdominal aorta for digital subtraction angiography revealing mild less than 10% heavily calcified stenosis of the infrarenal abdominal aorta and iliac vessels with patent renal arteries. The catheter was then advanced over wire and sheath exchanged to up-and-over 45 cm positioned in the right femoral artery. Hemodynamic measurements were documented at the right common femoral artery and the right popliteal artery with catheter positioning in both locations confirming absence of gradient across this SFA. This patient has renal transplant with CKD, limited dye protocol was used. Selective digital substraction angiography of the [id number] vessels was performed revealing an occluded right anterior tibial, a patent peroneal artery and TP trunk, and an occluded right posterior tibial artery in proximal segment with two areas of tandem 90% stenosis and the mid to distal segment 100% occluded distal with poor outflow. It was decided to proceed with intervention to the R AT - angisome distribution affected, which is the right anterior tibial, which was performed as follows, Roadrunner wire was used to cross the right anterior tibial and the catheter advanced to the distal position of the right anterior tibial exchanging wires for a grand slam. Of note, this was done with heparin with ACTs over 250. Aspirin and Plavix were also administered. The vessel was then treated with 2.5 x 220 Ultraverse balloon, serial inflations at 8 atmospheres re-establishing linear flow down to right toes with FARIBA-3 flow, no flow- limiting dissections or perforations and less than 30% residual stenosis. There were no focal areas of significant recoil that were amenable for additional stenting in this vessel with h/o recent rapid reocclusion after FILLING WINDER 03/2018, unfortunately diffuse disease noted throughout the vessel, however, now patent less than 30% stenosis with residual poor outflow given small digital arteries. CONCLUSION: Right anterior tibial FILLING WINDER. RECOMMENDATIONS: 1. Aspirin and Plavix. 2. Guarded limb prognosis overall. 3. Proceed with digital amputation as needed, dual antiplatelet therapy, bed rest. Jonathon Elizalde MD AFMadeleine/MODL /[id number] MTDD
--- NOTE | 2018-08-21 14:11 | NUR ---
CASE MANAGEMENT INITIAL ASSESSMENT Historian Research Assistant to bedside to discuss plan of care with patient/family. CM/SW role and care transitions discussed. Anticipated discharge plan discussed along with duration of care. CM discussed patients right to make decisions in care. CM work hours given. Patient lives: PATIENT LIVES IN [place] IN 1 STORY HOME WITH Admit/Transfer: ED Hospital/ER visits since last admit: ED POA/Emergency contact: MARISSA PETER- [phone] Current/Previous Home Health: NONE PCP/Follow-up Care: DR. YOUNGBLOOD Current/Previous DME: NONE Medications (referring to index hospitalization or the first time you were in the hospital) a. Were changes made in your medications when you were in the hospital on [date of index hospitalization]? Yes No Not sure Explain: Note: If no or not sure, please skip to question d b. Did you understand the changes? Yes No Explain: c. Were you able to obtain your new medications right away? Yes Non/a SNF only Explain: d. Were you able to take your medications like the doctor wanted you to? Yes No Explain: e. Did the hospital give you an accurate, easy to understand list of medications when you left? Yes No n/a SNF only Explain: Scale of 1-10 how comfortable does patient feel with disease management in outpatient setting: Other Services: NONE AT THIS TIME Employment Status: UNEMPLOYED Areas of Concerns: WOUND CARE; MOBILITY Referral Needs: HOME HEALTH WITH WOUND CARE Education Needs: WOUND CARE IMM/BROWNLEE given and signed (if applicable): IMM Goal for discharge: DISCHARGE HOME WITH HEALTH FOR WOUND CARE AND PT CM left business card at the bedside with contact information. Name and number was also written on the patients whiteboard. Patient verbalized understanding of discussion. CM will follow-up with ongoing discharge and transition of care needs.
[2018-08-21] MEDS: CEFEPIME 1GM/NS 0.9% 50 ML 50 ML IV SCH (15:00)
--- NOTE | 2018-08-21 15:30 | Progress Note ---
DATE: 08/21/2018 SUBJECTIVE: The patient seen at bedside, status post angioplasty to the right lower extremity, specifically the anterior tibial artery, doing somewhat better. The foot is a little bit warmer to touch. Gangrenous changes stabilizing for now. Gangrene to the third digit of right foot with a grade 4 ulcer to lateral aspect of second toe right with cellulitis resolving. ASSESSMENT: Cellulitis with gangrene, grade 3/4 ulceration with peripheral arterial disease. PLAN: We will continue to let the foot demarcate for this weekend. Definitive procedure will be done on Friday morning. We will continue local wound care, continue IV antibiotics and offloading. BARBARA Roa/JESENIA /[id number]
--- NOTE | 2018-08-21 19:43 | NUR ---
PATIENT RESTING IN BED, NO DISTRESS NOTED, ROUNDS DONE. NO COMPLAINTS OF PAIN. CALL LIGHT REMAIN IN REACH. WILL CONTINUE TO MONITOR.
[2018-08-22] VITALS (8 sets, daily range): BP systolic 141–176; BP diastolic 59–74
[2018-08-22] MEDS: SODIUM CHLORIDE 0.9% 1000ML 1,000 ML IV SCH ×3 (00:47→14:16)
--- NOTE | 2018-08-22 01:52 | Progress Note ---
DATE: 08/21/2018 Cardiology Progress Note SUBJECTIVE: No complaints. OBJECTIVE: VITAL SIGNS: Temperature 97.3, heart rate 75, blood pressure 181/74, respiratory rate 20, O2 saturation 98%. GENERAL: In no acute distress. Alert. NECK: No JVD. CHEST: Clear to auscultation. CARDIOVASCULAR: Regular rate and rhythm. Normal S1, S2. ABDOMEN: Soft. EXTREMITIES: No edema. Toe gangrene covered with dressings. MEDICATIONS: Cardiovascular medications reviewed. 1. Prednisone 5 mg daily. 2. Clopidogrel 75 mg daily. 3. Torsemide 10 mg b.i.d. 4. Hydralazine 50 mg every 6 hours. 5. Cyclosporine 100 mg at bedtime. 6. Cefepime. 7. Vancomycin. LABORATORY DATA: Studies reviewed. Creatinine is stable at 1.8. White blood cells 12.7, hemoglobin 10, platelets 312. INR 1.06. Normal transaminases. ASSESSMENT: 1. PAD status post right anterior tibial RAG SORTER AND CUTTER, with 2nd and 3rd toe gangrene, associated cellulitis, undergoing antibiotic therapy. 2. Hypertension. 3. Chronic kidney disease, status post transplant recipient, on immunosuppressants. 4. Hypertension. 5. DM2 RECOMMENDATIONS: Continue current cardiovascular medications. MD KEIRA Lea/JESENIA /[id number] MTDD
--- NOTE | 2018-08-22 02:57 | NUR ---
CONTINUE RESTING IN BED, NO COMPLAINTS VOICED. CALL LIGHT REMAIN IN REACH.
[2018-08-22 05:33] LABS: ALBUMIN/GLOBULIN RATIO 0.5 (0.8-2.0); ANION GAP 11.8 mmol/L (8-16); CALCIUM 8.8 mg/dL (8.4-10.2); CREATININE, SERUM 1.48 mg/dL (0.72-1.25); POTASSIUM 3.8 mmol/L (3.5-5.1)
--- NOTE | 2018-08-22 05:44 | NUR ---
LAB CALLED WITH BLOOD GLUCOSE RESULTS 37MG/DL. RECHECK BLOOD GLUCOSE 58 MG/DL. PATIENT RESTING IN BED,JUST HAD A SHOWER, WILL CONTINUE TO MONITOR.
--- NOTE | 2018-08-22 05:55 | NUR ---
PATIENT REFUSED DEXTROSE, JUICE AND FOOD GIVEN, WILL RECHECK BLOOD SUGAR.
--- NOTE | 2018-08-22 06:16 | NUR ---
BLOOD SUGAR 137 MG/DL/
--- NOTE | 2018-08-22 07:05 | NUR ---
REPORT GIVEN, ROUNDS DONE. PATIENT RESTING IN BED, NO DISTRESS NOTED. CALL LIGHT REMAIN IN REACH.
[2018-08-22] MEDS: INSULIN REGULAR, HUMAN 100 UNIT/1 ML 3ML VIAL SQ SCH ×4 (07:30→21:00)
[2018-08-22] MEDS: INSULIN LISPRO 100 UNIT/1 ML 3ML VIAL SQ SCH ×2 (07:30→16:30)
[2018-08-22] MEDS: PREDNISONE 5 MG TAB PO SCH (08:24)
[2018-08-22] MEDS: CHOLECALCIFEROL 1,000 UNIT TAB PO SCH (08:24)
[2018-08-22] MEDS: CLOPIDOGREL BISULFATE 75 MG TAB PO SCH (08:24)
[2018-08-22] MEDS: VANCOMYCIN 500MG/NS 0.9% 100ML 100 ML IV SCH (08:30)
[2018-08-22] MEDS: INSULIN GLARGINE 100 UNITS/ML VIAL SQ SCH (09:00)
[2018-08-22] MEDS: CEFEPIME 1GM/NS 0.9% 50 ML 50 ML IV SCH (14:16)
--- NOTE | 2018-08-22 16:16 | Progress Note ---
DATE: 08/22/2018 SUBJECTIVE: The patient is seen at bedside, doing somewhat better. Decreased pain to the right lower extremity. OBJECTIVE: VITAL SIGNS: Temp 100.2, pulse rate 80, respirations 20, blood pressure 141/59, and O2 saturation 93%. EXTREMITIES: Decreased cellulitis to the dorsal aspect of the right foot. There is some foul smell noted to the third digit of right foot with grade 4 ulcer on the lateral aspect of the second digit, right. LABORATORY DATA: Labs show a white blood cell count of 12.7, stabilized. ASSESSMENT: Cellulitis and gangrene with grade 4 ulcer with pregangrenous changes noted to the second toe foot with peripheral arterial disease, doing better status post angioplasty. PLAN: We will continue to let the foot demarcate. The patient will be taken for surgical intervention on Friday morning. Proposed surgery so far will be I and D, right foot; amputation of third with partial amputation of second with rotational flap closure. BARBARA Roa/JESENIA /[id number]
[2018-08-22] MEDS: ONDANSETRON HCL INJ 2MG/ML 2ML 2 MG/ML VIAL IV PRN (17:00)
[2018-08-22] MEDS: CYCLOSPORINE 25 MG CAP PO SCH (19:28)
[2018-08-22] MEDS: ACETAMINOPHEN 325 MG TAB PO PRN (19:46)
--- NOTE | 2018-08-22 21:00 | NUR ---
PT REFUSED TO ADMINISTER INSULIN.PT STATED THAT " IF I WILL RECEIVE INSULIN MY BLOOD SUGAR WILL BECOME LOW.SO I DON'T WANT."DRESSING DRY AND INTACT.BED LOCKED AND IN LOWEST POSITION.PHONE AND CALL LIGHT WITHIN REACH.INSTRUCTED TO CALL FOR ASSISTANCE NEEDED.
[2018-08-22] MEDS: METOPROLOL SUCCINATE 25 MG TAB XL PO SCH (21:04)
[2018-08-23] VITALS (8 sets, daily range): BP systolic 123–182; BP diastolic 54–87
[2018-08-23] MEDS: HYDRALAZINE HCL 25 MG TAB PO PRN ×2 (00:11→23:58)
--- NOTE | 2018-08-23 01:46 | NUR ---
BP SHOWING HIGH 182/77.HYDRALAZINE 50 MG PO GIVEN.
--- NOTE | 2018-08-23 06:50 | NUR ---
REPORT GIVEN TO THE ONCOMING RN.WALKING ROUNDS DONE.STABLE CONDITION.
[2018-08-23 08:09] LABS: BASOPHILS % 0.2 % (0.0-1.0); EOSINOPHILS # (AUTO) 0.1 (0.0-0.4); HEMATOCRIT 27.5 % (38.2-49.6); HEMOGLOBIN 8.3 g/dL (14.0-18.0); LYMPHOCYTES # (AUTO) 1.6 (1.0-3.2); LYMPHOCYTES % 12.2 % (18.0-39.1); MEAN CORPUSCULAR HEMOGLOBIN 28.3 pg (28-32); MEAN CORPUSCULAR HGB CONC 30.2 g/dL (31-35); MEAN CORPUSCULAR VOLUME 93.9 fL (81-99); MONOCYTES # (AUTO) 1.1 (0.2-0.8); MONOCYTES % 8.3 % (4.4-11.3); NEUTROPHILS # (AUTO) 10.4 (2.1-6.9); NEUTROPHILS % 77.9 % (38.7-80.0); PLATELET COUNT 316 x10e3/uL (140-360); RED BLOOD COUNT 2.93 x10e6/uL (4.3-5.7); RED CELL DISTRIBUTION WIDTH 12.1 % (11.7-14.4)
[2018-08-23] MEDS: METOPROLOL SUCCINATE 25 MG TAB XL PO SCH (08:14)
[2018-08-23] MEDS: CHOLECALCIFEROL 1,000 UNIT TAB PO SCH (08:14)
[2018-08-23] MEDS: PREDNISONE 5 MG TAB PO SCH (08:14)
[2018-08-23] MEDS: INSULIN LISPRO 100 UNIT/1 ML 3ML VIAL SQ SCH ×2 (08:27→16:30)
[2018-08-23] MEDS: INSULIN REGULAR, HUMAN 100 UNIT/1 ML 3ML VIAL SQ SCH ×4 (08:28→21:00)
[2018-08-23] MEDS: INSULIN GLARGINE 100 UNITS/ML VIAL SQ SCH (08:28)
[2018-08-23 08:36] LABS: ANION GAP 9.2 mmol/L (8-16); CALCIUM 8.7 mg/dL (8.4-10.2); CREATININE, SERUM 1.59 mg/dL (0.72-1.25); POTASSIUM 4.2 mmol/L (3.5-5.1)
--- NOTE | 2018-08-23 08:58 | Progress Note ---
DATE: 08/22/2018 Cardiology Progress Note SUBJECTIVE: No complaints. OBJECTIVE: VITAL SIGNS: Temperature 100.1, heart rate 82, blood pressure 169/70, respiratory rate 20, O2 saturation 98%. GENERAL: In no acute distress. Alert. NECK: No JVD. CHEST: Clear to auscultation. CARDIOVASCULAR: Regular rate and rhythm. Normal S1 and S2. ABDOMEN: Soft. EXTREMITIES: Trace edema. Right foot wound covered with dressings. MEDICATIONS: Cardiovascular medications reviewed. 1. Prednisone 5 mg daily. 2. Clopidogrel 75 mg daily. 3. Cyclosporine 100 mg at bedtime. 4. Vancomycin and cefepime antibiotics. 5. Hydralazine 50 mg every 6 hours. LABORATORY DATA: Studies; sodium 139, potassium 3.8, chloride 108, bicarbonate 23, BUN 28, creatinine 1.48. White blood cells 12.7, hemoglobin 10, platelets 312. INR 1.06. ASSESSMENT: 1. Peripheral arterial disease, status post right anterior tibial artery revascularization, pending amputation of 2nd and 3rd toes with gangrene and associated cellulitis, undergoing antibiotic therapy. 2. Chronic kidney disease, status post renal transplant recipient, on immunosuppression therapy. 3. Diabetes mellitus. 4. Hypertension. 5. Anemia. RECOMMENDATIONS: 1. Add beta-odell to current regimen. 2. Continue rest of cardiovascular medications. MD KEIRA Lea/MIREYAL /[id number] MTDD
[2018-08-23] MEDS: CLOPIDOGREL BISULFATE 75 MG TAB PO SCH ×2 (09:00→09:35)
[2018-08-23] MEDS: VANCOMYCIN 500MG/NS 0.9% 100ML 100 ML IV SCH (09:36)
[2018-08-23 14:32] LABS: INR 1.05; PROTHROMBIN TIME 14.2 seconds (11.9-14.5)
[2018-08-23 14:33] LABS: PARTIAL THROMBOPLASTIN TIME 37.7 seconds (23.8-35.5)
[2018-08-23] MEDS: CEFEPIME 1GM/NS 0.9% 50 ML 50 ML IV SCH (15:04)
--- NOTE | 2018-08-23 19:15 | NUR ---
REPORT TAKEN FROM AM RN.WALKING ROUNDS DONE.PT IS LYEING IN THE BED.
--- NOTE | 2018-08-23 19:25 | Progress Note ---
DATE: 08/23/2018 Medicine Progress Note I am covering for Dr. Benoit. SUBJECTIVE: The patient recently had status post angiogram of the right leg, has gangrene of the 2nd toe, osteomyelitis, and the 3rd toe looks to be infected of the right foot, in which he will be undergoing amputation tomorrow. I discussed this with the nursing staff as well. The patient also had a history of renal transplant in the past. The patient was evaluated at bed. He is currently doing well with no complaints. PHYSICAL EXAMINATION: VITAL SIGNS: Temperature 98.7, pulse 75, respiratory rate 18, blood pressure 123/58, pulse ox 98% on room air. GENERAL: Not in acute distress, alert and oriented x3. Cooperative on examination. HEENT: Head is normocephalic, atraumatic. Eyes, pupils equal, round, reactive to light bilaterally. Extraocular movements intact bilaterally. No evidence of erythema or exudates in the posterior pharynx. Has poor dentition. NECK: Supple. Good range of motion throughout. PULMONARY: Clear to auscultation bilaterally. No wheezes, rhonchi, or crackles appreciated. CARDIOVASCULAR: Positive S1 and S2. No murmurs, rubs, or gallops appreciated. ABDOMEN: Soft, nondistended, and nontender to palpation. Bowel sounds are present. MUSCULOSKELETAL: Strength is 5/5 throughout. . NEUROLOGIC: Cranial nerves 2 through 12 are grossly intact. . SKIN: Intact. Warm to touch. Good cap refill. PSYCHIATRIC: Normal affect and mood. EXTREMITIES: No edema. Good range of motion throughout. LABORATORY DATA: Lab findings show white count 13, hemoglobin 8.3, hematocrit 27.5, platelets of 316. Chemistry; sodium 133, potassium 4.2, chloride 105, bicarb 23, anion gap of 9, BUN 25, creatinine is 1.59, glucose is 208. MICROBIOLOGY: Blood cultures were negative. IMAGING STUDIES: None. IMPRESSION: 1. Right foot 2nd toe osteomyelitis with the 3rd toe infection status post right lower extremity angiogram. 2. Type 2 diabetes. 3. Renal transplant. 4. Right foot cellulitis with severe peripheral arterial disease. PLAN: He is scheduled for amputation tomorrow by Podiatry. He is on IV antibiotics, being monitored and evaluated by Infectious Disease. Nephrology is consulted for renal transplantation. We will continue with same plan of care. After surgery, he will likely benefit from LTAC per Dr. Benoit's note. We will continue with same plan of care. Monitor very closely. His hemoglobin did drop to 8.3 today. So, I am going to go ahead and repeat labs for tomorrow morning. MD LOLI Warren/JESENIA /[id number]
[2018-08-23] MEDS: CYCLOSPORINE 25 MG CAP PO SCH (21:00)
--- NOTE | 2018-08-23 21:30 | NUR ---
ASSESSMENT DONE.NO RESP.DISTRESS.NO PAIN VOICED.VOIDED .BED LOCKED AND IN LOWEST POSITION.PHONE AND CALL LIGHT WITHIN REACH.INSTRUCTED TO CALL FOR ASSISTANCE NEEDED.ADVISED NPO AFTER 12 MN.
--- NOTE | 2018-08-23 21:30 | Progress Note ---
DATE: 08/23/2018 SUBJECTIVE: The patient at bedside feeling better. Denies any history of fever, chills, nausea, or vomiting. OBJECTIVE: VITAL SIGNS: Afebrile, pulse rate 75, respirations 18, blood pressure 123/58, and O2 saturation 98%. Has a foul smell noted to the 3rd digit, right foot. EXTREMITIES: Pedal pulses are diminished, but skin temperature is warm to touch. Has grade 4 ulceration lateral aspect 2nd digit right with possible abscess formation. LABORATORY DATA: Labs show white blood cell count of 13.3, hemoglobin 8.3, hematocrit 27.5 with a platelet count of 316. ASSESSMENT: Abscess gangrene 3rd toe with a grade 4 ulcer and pregangrenous changes noted to the 2nd toe, right foot. PLAN: PT and INR will be ordered. We will hold Plavix and aspirin today. Continue IV antibiotics. Continue local wound care. The patient will be taken for surgical intervention tomorrow, which will consist of an I and D right foot, amputation 3rd digit right, partial resection 2nd toe right foot with rotational flap closure. The patient understands no warrantees or guarantees can be given, may need further surgery if not responsive. BARBARA Roa/JESENIA /[id number]
[2018-08-24] VITALS (8 sets, daily range): BP systolic 114–190; BP diastolic 52–85
--- NOTE | 2018-08-24 02:32 | Progress Note ---
DATE: 08/23/2018 Cardiology Progress Note. SUBJECTIVE: No new complaints today. PHYSICAL EXAMINATION: VITAL SIGNS: Temperature 99.8, heart rate 74, blood pressure 140/87, respiratory rate 18, and O2 saturation 98% with a BMI of 26. GENERAL: No acute distress, alert and active. NECK: No JVD. CHEST: Clear to auscultation. CARDIOVASCULAR: Regular rate and rhythm. Normal S1 and S2. ABDOMEN: Soft. EXTREMITIES: Trace edema. Right foot wound covered with dressing. CARDIOVASCULAR MEDICATIONS: Reviewed. Clopidogrel 75 mg daily, metoprolol succinate 25 mg daily, immunosuppressive therapy with prednisone, cyclosporine, and sirolimus. STUDIES: Reviewed. Potassium 4.2, bicarbonate 23, BUN 25, creatinine 1.5. White blood cells 13, hemoglobin 8.3, and platelets 316. INR 1.05. AST 10, ALT 6, alk phos 74. ASSESSMENT: 1. PAD, status post endovascular revascularization pending toe amputations. 2. Diabetes mellitus. 3. Chronic kidney disease, status post renal transplantation, on immunosuppressive therapy. 4. Hypertension. 5.Anemia. 6. Dyslipidemia. RECOMMENDATIONS: Continue current cardiovascular medications including perioperative beta blockers. The patient is scheduled for toe amputations in the upcoming several days. We will follow up closely perioperatively. MD ThibodeauxV/MIREYAL /[id number] MTDD
--- NOTE | 2018-08-24 04:00 | NUR ---
[place] bath given.pt tolerated well.stable condition.
--- NOTE | 2018-08-24 05:45 | NUR ---
BP RECHECKED 176/76 MMOF HG.TEMP 100.1. IS COVERING FOR .LEFT THE MESSAGE TO 'S VOICE MAIL AND 'S ANSWERING SERVICE.WAITING FOR THE REPLY.
--- NOTE | 2018-08-24 06:40 | NUR ---
Visit made by the Spiritual Care Department Pastoral Visitor, Beau Mayer. Pt sleeping soundly and no family present. Pastoral Visitor left a card describing availability of silk screen processor and instructions on how to contact a silk screen processor. LISSY CERON Sheather Spiritual Care Department O: [phone] Pager: [phone] ([phone] number calling from)
--- NOTE | 2018-08-24 06:50 | NUR ---
REPORT GIVEN TO THE ONCOMING RN.WALKING ROUNDS DONE.STALE CONDITION.
[2018-08-24] MEDS ORDERED: MUPIROCIN 2% OINT 22 GM TUBE ONE (06:51)
[2018-08-24] MEDS ORDERED: BACITRACIN 50,000 UNIT VIAL ONE (06:51)
--- NOTE | 2018-08-24 07:11 | NUR ---
pt alert resp even and unlabored at this time no distress noted at this time, no has no c/o pain when asked, pt has family member at bedside , pt able to make needs known, call light in reach.
[2018-08-24] MEDS: INSULIN LISPRO 100 UNIT/1 ML 3ML VIAL SQ SCH ×2 (07:30→16:30)
[2018-08-24] MEDS: INSULIN REGULAR, HUMAN 100 UNIT/1 ML 3ML VIAL SQ SCH ×4 (07:30→21:00)
[2018-08-24] MEDS ORDERED: BUPIVACAINE 0.25% 30ML SDV INJ ONE (07:46)
[2018-08-24] MEDS ORDERED: LIDOCAINE HCL 2% LOCAL 20 ML VIAL ONE (07:46)
[2018-08-24] MEDS ORDERED: BETAMETHASONE DISODIUM PHOS 6 MG/ML VIAL ONE (07:46)
--- NOTE | 2018-08-24 08:31 | NUR ---
Pt currently in OR having surgery
[2018-08-24] MEDS: CHOLECALCIFEROL 1,000 UNIT TAB PO SCH (09:00)
[2018-08-24] MEDS: METOPROLOL SUCCINATE 25 MG TAB XL PO SCH (09:00)
--- NOTE | 2018-08-24 09:26 | Diagnostic Imaging Report ---
EXAM: FOOT RIGHT AP LAT DATE: 08/24/2018 8:31 AM INDICATION: Cellulitis, amputation of digits COMPARISON: Right foot, 08/16/2018 FINDINGS: 2 views of the right foot shows interval amputation of the second digit through the midportion of the proximal phalanx, and amputation of the third digit at the MP joint. Previously noted erosion at the medial base of the first proximal phalanx is less apparent. No other acute bony abnormality. Again noted are calcifications along the plantar soft tissues of the foot and extensive small vessel arterial calcification. IMPRESSION: Interval amputations of the second and third digits as described. Signed by: Dr. Tha Shrestha M.D. on 08/24/2018 9:23 AM
--- NOTE | 2018-08-24 09:40 | NUR ---
pt returned to room vital sins stable, family member at bedside. call light in reach.
[2018-08-24] MEDS ORDERED: FENTANYL CITRATE/PF 100MCG/2 ML INJ ONE (13:33)
[2018-08-24] MEDS ORDERED: MIDAZOLAM HCL 2 MG/2 ML VIAL ONE (13:33)
[2018-08-24] MEDS: CEFEPIME 1GM/NS 0.9% 50 ML 50 ML IV SCH (14:05)
[2018-08-24] MEDS: INSULIN GLARGINE 100 UNITS/ML VIAL SQ SCH (14:29)
[2018-08-24] MEDS ORDERED: PROPOFOL IV EMULSION 10 MG/ML 20 ML VIAL ONE (14:41)
[2018-08-24] MEDS ORDERED: ONDANSETRON HCL INJ 2MG/ML 2ML 2 MG/ML VIAL ONE (14:41)
[2018-08-24] MEDS ORDERED: LIDOCAINE HCL 2% LOCAL INJ 5 ML SDV VIAL INJ ONE (14:41)
[2018-08-24] MEDS ORDERED: DEXAMETHASONE SOD PHOS INJ 4 MG/ML VIAL ONE (14:41)
[2018-08-24] MEDS ORDERED: SEVOFLURANE INHAL SOLN 250 ML PEN BTL ONE (14:41)
--- NOTE | 2018-08-24 15:55 | NUR ---
Nutrition Screen Note RD Recommendation for Physician: - Continue ADA diet as ordered Plan of Care: RD following, monitoring for tolerance and adequacy Nutrition reason for involvement: follow up Primary Diagnose(s): Cellulitis of Right Foot with Gangrene of Toes PMH: DM, HTN, CVA, Kidney Transplant. Ht: 66in Wt: 154lb BMI: 24.9kg/m2 IBW: 142lb RD Assessment: 08/24: Pt seen for follow up. Pt discussed during am rounds, s/p amputation of 2nd and 3rd toes of R foot today. Pt reports good appetite, noted 75-100% meal intake per chart. Pt denies any GI distress. Labs and meds reviewed. Will monitor and continue to follow. (3) Chart reviewed. Labs and meds reviewed. 52yo M, who was admitted for pain to right foot with redness, swelling and bad odor. Wound care following. On IV abx, Prednisone, and insulin. BG 88 156. 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 Pt denied chewing/swallowing problems and nausea/vomiting. Pt has had fair appetite since admission. Will continue to monitor and follow. Please consult as needed. Current Diet: ADA diet Malnutrition Evaluation (3) The patient does not meet criteria for a specified degree of malnutrition at this time. Will re-evaluate at follow-up as appropriate. Diet Education Needs Assessment: Diet education not indicated. Nutrition Care Level: low Signed: Nadya Li RD, LD, [facility]
--- NOTE | 2018-08-24 16:00 | NUR ---
PT ALERT PT C/O PAIN ON HIS BACK, CHECKED PT BACK, PT HAS SKIN SHEAR TO UPPER CENTER OF BACK. PT ALSO STATED THIS WAS DONE WHEN HE WAS IN SURGICAL AREA. SHEAR OPEN TO AIR CLEANED WITH NORMAL SALINE.
[2018-08-24] MEDS: ACETAMINOPHEN 325 MG TAB PO PRN (17:08)
--- NOTE | 2018-08-24 18:04 | Operative Report ---
DATE OF PROCEDURE: 08/24/2018 SURGEON: Ayden Miller DPM PREOPERATIVE DIAGNOSES: 1. Gangrene, 3rd toe, right foot. 2. Abscess, right foot. 3. Grade 4 ulcer with pregangrenous changes noted to the 2nd digit, right foot. POSTOPERATIVE DIAGNOSES: Confirmed. OPERATIVE PROCEDURE: 1. I and D of the right foot down to bone. 2. Amputation of 3rd digit, right foot. 3. Partial resection/amputation 2nd toe, right foot. 4. Rotational flap closure. ANESTHESIA: General. HEMOSTASIS: None. PROCEDURE IN DETAIL: The patient was taken into the operating room, placed on the operating table in a supine position. Following induction of general anesthesia by the anesthesiologist, the right lower extremity was then prepped and draped in the usual aseptic manner. Following procedures were performed. PROCEDURE #1: Incision and drainage of right foot. Attention was directed to the dorsal aspect of the 3rd metatarsophalangeal joint where a racquet shaped incision was performed. It was deepened down to the proximal interphalangeal joint. Deep abscess was encountered and cultured for aerobic and anaerobic growth. The abscess was I and D'd down to bone. At this point, secondary to the amount of necrosis, it was decided to amputate the 3rd digit right foot. PROCEDURE #2: Amputation of 3rd toe, right foot. Attention was then directed to the dorsal aspect of the 3rd metatarsophalangeal joint where a linear incision was performed. Incision was deepened down to the metatarsophalangeal joint. The toe was then disarticulated at the metatarsophalangeal joint and sent for pathological analysis. All areas were then copiously flushed with sterile antibiotic solution and suctioned. Necrotic tissue was removed via sharp and blunt dissection. PROCEDURE #3: Partial resection of the 2nd toe right foot. Attention was then directed to the dorsal aspect of the 2nd toe where a racquet-shaped incision was performed overlying the proximal interphalangeal joint. The toe was disarticulated and sent for pathological analysis. Further necrosis was noted, so utilizing an oscillating saw, the head of the proximal phalanx was excised from the operation site in toto. All areas were then copiously flushed with sterile antibiotic solution and suctioned. PROCEDURE #4: Rotational flap closure. Closure was then obtained utilizing 3-0 Vicryl 4-0 nylon after creating a plantar flap to allow for proper closure at the 3rd metatarsophalangeal joint. The incision dorsally was extended dorsal medially and the excision planned. It was extended plantar laterally to create a plantar flap that was dorsally displaced and closed. The flap was in involving subcutaneous tissue. Then, approximately 10 mL of 0.5% plain Marcaine plus 5 mL of 1% xylocaine plain was used to achieve local anesthesia of above-mentioned surgical area. After properly closing the areas with 3-0 Vicryl and 4-0 nylon for subcutaneous tissue and skin respectively. Sterile dressing was applied. The patient was then transferred from the OR to recovery room with vital signs stable, neurovascular status intact. No intraoperative complications were encountered. Blood loss from the surgery was minimal. The patient remained in the hospital for one more day of IV antibiotics. The patient understands no warrantees or guarantees were given. May need a more proximal amputation if not responsive. BARBARA Roa/JESENIA /[id number]
--- NOTE | 2018-08-24 18:29 | Progress Note ---
DATE: 08/24/2018 Cardiology Progress Note SUBJECTIVE: Denies any chest pain or shortness of breath status post limited amputation. PHYSICAL EXAMINATION: VITAL SIGNS: Today temperature 99.7, heart rate 79, respiratory rate 16, blood pressure 142/85, O2 saturation 95% on room air. GENERAL: No acute distress, alert. NECK: No JVD. CHEST: Clear to auscultation. CARDIOVASCULAR: Regular rate and rhythm. Normal S1, S2. No S3 or S4. Systolic ejection murmur /6. ABDOMEN: Soft and nontender. EXTREMITIES: Trace edema with the wounds covered with dressings. MEDICATIONS: Cardiovascular medications reviewed. Hydralazine 50 mg every 6 hours p.r.n., cefepime antibiotics, status post vancomycin, metoprolol succinate 25 mg daily, cyclosporine 100 mg at bedtime, Myfortic 360 mg b.i.d., clopidogrel held today. LABORATORY DATA: White blood cells 13.3, hemoglobin 8.3, platelets 316. INR 1.05, glucose 118, creatinine 1.59. ASSESSMENT: 1. Peripheral arterial disease, status post endovascular revascularization, status post ray amputations. 2. Diabetes mellitus type 2. 3. Chronic kidney disease, status post renal transplant, on immunosuppressants. 4. Hypertension. 5. Anemia. 6. Dyslipidemia. RECOMMENDATIONS: 1. Continue current cardiovascular medications. 2. Continue rest of cardiovascular medication. 3. Within the next 48 hours if no significant bleeding issues, please resume clopidogrel 75 mg daily. MD KEIRA Lea/JESENIA /[id number]
--- NOTE | 2018-08-24 18:35 | Progress Note ---
DATE: 08/24/2018 Medicine Progress Note I am covering for Dr. Benoit. SUBJECTIVE: The patient had amputation of his right toes today, 2nd and 3rd toe. He is currently complaining of no pain. PHYSICAL EXAMINATION: VITAL SIGNS: Temperature 99.8, pulse 89, respiratory rate is 18, blood pressure 123/58, and pulse ox 97% on room air. GENERAL: Not in acute distress, alert and oriented x3. Cooperative on examination. HEENT: Head is normocephalic, atraumatic. Eyes, pupils equal, round, reactive to light bilaterally. Extraocular movements intact bilaterally. NECK: Supple. Good range of motion throughout. No evidence of erythema or exudates in the posterior pharynx. Has poor dentition. PULMONARY: Clear to auscultation bilaterally. No wheezes, rhonchi, or crackles appreciated. CARDIOVASCULAR: Positive S1 and S2. No murmurs, rubs, or gallops appreciated. ABDOMEN: Soft, nondistended, and nontender to palpation. Bowel sounds are present. MUSCULOSKELETAL: Strength is 5/5 throughout. No evidence of any muscle deficits on examination. No weakness appreciated. NEUROLOGIC: Cranial nerves II through XII are grossly intact. . No evidence of any neurological deficits on exam. SKIN: Intact. Warm to touch. Good cap refill. PSYCHIATRIC: Normal affect and mood. EXTREMITIES: No edema. Good range of motion throughout. LABORATORY DATA: Labs reviewed and stable. CBC stable. Chemistry stable. IMPRESSION: 1. Right foot 2nd toe osteomyelitis and 3rd toe infection, status post amputation performed on 08/24/2018. 2. Type 2 diabetes. 3. Renal transplantation. 4. Right foot cellulitis with severe peripheral arterial disease. PLAN: At this time, patient is postop day #zero. Pain is well controlled. Continue with IV antibiotics for now. Nephrology is consulted for underlying renal transplantation. His hemoglobin yesterday has increased. We will get a.m. labs. We will monitor closely. MD LOLI Warren/MODL /[id number]
--- NOTE | 2018-08-24 19:30 | NUR ---
Patient received lying in bed. AAO x 3. Patient had no complaints of pain. No signs of respiratory distress. Dressing to right foot CDI. Bed locked and in lowest position. Bed rails up x 2. Patient instructed to call for assistance when needed. Call light within reach.
--- NOTE | 2018-08-24 20:07 | NUR ---
REPORT GIVEN TO ONCOMING NURSE FOR CONTINUED CARE.
[2018-08-24] MEDS: CYCLOSPORINE 25 MG CAP PO SCH (21:43)
[2018-08-25] VITALS (7 sets, daily range): BP systolic 127–176; BP diastolic 48–80
[2018-08-25] MEDS: ACETAMINOPHEN 325 MG TAB PO PRN (01:47)
[2018-08-25] MEDS: HYDRALAZINE HCL 25 MG TAB PO PRN (01:47)
[2018-08-25 04:55] LABS: BASOPHILS % 0.2 % (0.0-1.0); EOSINOPHILS # (AUTO) 0.2 (0.0-0.4); EOSINOPHILS % 0.9 % (0.0-6.0); HEMATOCRIT 28.2 % (38.2-49.6); HEMOGLOBIN 8.8 g/dL (14.0-18.0); LYMPHOCYTES # (AUTO) 2.3 (1.0-3.2); LYMPHOCYTES % 12.3 % (18.0-39.1); MEAN CORPUSCULAR HEMOGLOBIN 28.8 pg (28-32); MEAN CORPUSCULAR HGB CONC 31.2 g/dL (31-35); MEAN CORPUSCULAR VOLUME 92.2 fL (81-99); MONOCYTES # (AUTO) 1.6 (0.2-0.8); MONOCYTES % 8.7 % (4.4-11.3); NEUTROPHILS # (AUTO) 14.4 (2.1-6.9); NEUTROPHILS % 77.3 % (38.7-80.0); PLATELET COUNT 389 x10e3/uL (140-360); RED BLOOD COUNT 3.06 x10e6/uL (4.3-5.7); RED CELL DISTRIBUTION WIDTH 12.2 % (11.7-14.4)
[2018-08-25 05:22] LABS: ALBUMIN/GLOBULIN RATIO 0.5 (0.8-2.0); ALKALINE PHOSPHATASE 67 IU/L (40-150); BLOOD UREA NITROGEN 25 mg/dL (7-26); BUN/CREATININE RATIO 14 (6-25); CALCIUM 8.5 mg/dL (8.4-10.2); CARBON DIOXIDE 24 mmol/L (22-29); CHLORIDE 103 mmol/L (98-107); CREATININE, SERUM 1.78 mg/dL (0.72-1.25); EST GLOMERULAR FILTRATION RATE 41 ML/MIN (60-); GLUCOSE 105 mg/dL (74-118); SODIUM 135 mmol/L (136-145)
[2018-08-25 05:33] LABS: ALANINE AMINOTRANSFERASE < 6 IU/L (0-55)
[2018-08-25] MEDS: ONDANSETRON HCL INJ 2MG/ML 2ML 2 MG/ML VIAL IV PRN (06:10)
--- NOTE | 2018-08-25 07:09 | NUR ---
PT LYING ON HIS RIGHT SIDE ASLEEP , RESP EVEN AND UNLABORED AT THIS TIME, PT EASILY AROUSED TO NAME, NO C/O PAIN WHEN ASKED WILL CONT. TO MONITOR. CALL LIGHT IN REACH.
--- NOTE | 2018-08-25 07:24 | NUR ---
Walking rounds done. Shift report given to oncoming nurse.
[2018-08-25] MEDS: INSULIN LISPRO 100 UNIT/1 ML 3ML VIAL SQ SCH ×2 (07:30→16:30)
[2018-08-25] MEDS: INSULIN REGULAR, HUMAN 100 UNIT/1 ML 3ML VIAL SQ SCH ×4 (07:30→21:05)
[2018-08-25] MEDS: METOPROLOL SUCCINATE 25 MG TAB XL PO SCH (09:00)
[2018-08-25] MEDS: CHOLECALCIFEROL 1,000 UNIT TAB PO SCH (09:00)
[2018-08-25] MEDS: VANCOMYCIN 500MG/NS 0.9% 100ML 100 ML IV SCH (09:00)
[2018-08-25] MEDS: INSULIN GLARGINE 100 UNITS/ML VIAL SQ SCH (09:00)
[2018-08-25 10:44] LABS: EOSINOPHILS % (MANUAL) 2 % (0-7); LYMPHOCYTES % (MANUAL) 13 % (19-48); MONOCYTES % (MANUAL) 17 % (3.4-9.0); NEUTROPHILS % (MANUAL) 68 % (40-74)
[2018-08-25 10:45] LABS: HYPOCHROMASIA MODERATE; PLATELET ESTIMATE ADEQUATE; PLATELET MORPHOLOGY COMMENT NORMAL; RBC MORPHOLOGY COMMENT NORMAL
[2018-08-25 15:37] LABS: ANION GAP 11.2 mmol/L (8-16); CALCIUM 8.1 mg/dL (8.4-10.2); CREATININE, SERUM 1.7 mg/dL (0.72-1.25); POTASSIUM 4.2 mmol/L (3.5-5.1)
--- NOTE | 2018-08-25 16:46 | Consultation ---
DATE OF CONSULTATION: 08/25/2018 SUBJECTIVE: The patient seen at bedside and doing well. Decreased pain. Denies any history of fever, chills, nausea, or vomiting. OBJECTIVE: VITAL SIGNS: Afebrile, pulse rate 76, respirations 18, blood pressure 130/48, and O2 saturation 98%. LABS: Showed white blood cell count of 18.6, hemoglobin 8.8, hematocrit 28.2 with a platelet count of 389. Dressing dry and intact, CFT to remaining toes less than 4 seconds. ASSESSMENT: Status post right foot surgery and multiple procedures with flap closure. PLAN: Patient to remain nonweightbearing. We will continue with IV antibiotics. The patient can be discharged when okay with Dr. Benoit. [facility] will be contacted for home health care. BARBARA Roa/JESENIA /[id number]
[2018-08-25] MEDS: CEFEPIME 1GM/NS 0.9% 50 ML 50 ML IV SCH (16:58)
--- NOTE | 2018-08-25 18:16 | Progress Note ---
DATE: 08/25/2018 Medicine Progress Note SUBJECTIVE: The patient is doing well today with no complaints. He is postop day #1. OBJECTIVE: VITAL SIGNS: Temperature 98.7, pulse 73, respiratory rate is 19, blood pressure 139/58, pulse ox is 96% on room air. GENERAL: Not in acute distress, alert and oriented x3. Cooperative on examination. HEENT: Head is normocephalic, atraumatic. Eyes; pupils are equal, round, and reactive to light bilaterally. Extraocular movements are intact bilaterally. No evidence of erythema or exudates in the posterior pharynx. Has poor dentition. NECK: Supple. Good range of motion throughout. PULMONARY: Clear to auscultation bilaterally. No wheezes, no rales, no rhonchi, no crackles appreciated. CARDIOVASCULAR: Positive S1 and S2. No murmurs, rubs, or gallops appreciated. ABDOMEN: Soft, nondistended, and nontender to palpation. Bowel sounds are present. MUSCULOSKELETAL: Strength is 5/5 throughout. No evidence of any muscle deficits on examination. No weakness appreciated. NEUROLOGIC: Cranial nerves II through XII are grossly intact. No evidence of any neurological deficits on exam. SKIN: Intact. Warm to touch. Good cap refill. PSYCHIATRIC: Normal affect and mood. EXTREMITIES: No edema. Good range of motion throughout. LABORATORY DATA: Lab findings show white count 18.6, hemoglobin is 8.8, hematocrit is 28, platelets of 389. Chemistry, reviewed and stable. Wound cultures shows gram-negative rods. IMPRESSION: 1. Right foot 2nd toe osteomyelitis and 3rd toe infection, status post amputation performed on 08/24/2018. 2. Type 2 diabetes. 3. Renal transplantation. 4. Right foot cellulitis with severe peripheral arterial disease. PLAN: Postop day #1, pain controlled. Continue with IV antibiotics for now. Await for ID recommendations to start antibiotics. Podiatry has no further recommendations. Nephrology is monitoring his renal transplant. Dr. Benoit will be available tomorrow. We will get a.m. labs. His white count still is elevated. Libby Bowden MD JSD/MODL /[id number]
--- NOTE | 2018-08-25 19:25 | NUR ---
Patient received relaxing in bed. AAO x 4. No acute distress noted. Fall precautions in place. Call light within reach.
--- NOTE | 2018-08-25 19:42 | Progress Note ---
DATE: 08/25/2018 Cardiology Progress Note SUBJECTIVE: No complaints today. OBJECTIVE: VITAL SIGNS: Temperature 98.7, heart rate 73, respiratory rate 19, blood pressure 139/58, and O2 saturation 96% on room air. GENERAL: In no acute distress, alert. NECK: No JVD. CHEST: Clear to auscultation. CARDIOVASCULAR: Regular rate and rhythm. S1 and S2. ABDOMEN: Soft. EXTREMITIES: No edema. Foot wound covered with dressings. CARDIOVASCULAR MEDICATIONS: Reviewed. Vancomycin, metoprolol, hydralazine, cyclosporine, cefepime, clopidogrel and aspirin to be resumed tomorrow. LABORATORY DATA: Studies reviewed. White blood cells 18.6, hemoglobin 8.8 and stable, platelets 389. Potassium 4, creatinine 1.78. Normal transaminases. ASSESSMENT: 1. Peripheral arterial disease status post revascularization and ray amputations. 2. Diabetes mellitus type 2. 3. Chronic kidney disease status post renal transplant, on immunosuppressants. 4. Hypertension. 5. Anemia. 6. Dyslipidemia. RECOMMENDATIONS: 1. Resume antiplatelet therapy. 2. Continue rest of cardiovascular medications. 3. Outpatient followup in 4-6 weeks post discharge. MD KEIRA Lea/JESENIA /[id number]
[2018-08-25] MEDS: CYCLOSPORINE 25 MG CAP PO SCH (21:00)
[2018-08-26] VITALS (7 sets, daily range): BP systolic 127–194; BP diastolic 54–81
[2018-08-26 05:13] LABS: BASOPHILS % 0.3 % (0.0-1.0); EOSINOPHILS # (AUTO) 0.2 (0.0-0.4); EOSINOPHILS % 1.4 % (0.0-6.0); HEMATOCRIT 26.2 % (38.2-49.6); LYMPHOCYTES # (AUTO) 1.8 (1.0-3.2); LYMPHOCYTES % 14.9 % (18.0-39.1); MEAN CORPUSCULAR HEMOGLOBIN 28.4 pg (28-32); MEAN CORPUSCULAR HGB CONC 30.5 g/dL (31-35); MEAN CORPUSCULAR VOLUME 92.9 fL (81-99); MONOCYTES # (AUTO) 1.1 (0.2-0.8); MONOCYTES % 9.4 % (4.4-11.3); NEUTROPHILS # (AUTO) 8.7 (2.1-6.9); NEUTROPHILS % 73.3 % (38.7-80.0); PLATELET COUNT 359 x10e3/uL (140-360); RED BLOOD COUNT 2.82 x10e6/uL (4.3-5.7)
[2018-08-26 05:16] LABS: CALCIUM 8.2 mg/dL (8.4-10.2); CREATININE, SERUM 1.87 mg/dL (0.72-1.25)
[2018-08-26] MEDS: INSULIN LISPRO 100 UNIT/1 ML 3ML VIAL SQ SCH ×2 (07:30→16:30)
--- NOTE | 2018-08-26 08:00 | NUR ---
DR. GARRISON IN TO SEE PT. SURGICAL SITE REDRESSED WITH INSTRUCTIONS FROM DR. GARRISON FOR NO NEW DRESSING UNTIL PT'S OFFICE VISIT IN 1 WEEK. PT OK TO DC HOME WITH HOME HEALTH.
[2018-08-26] MEDS ORDERED: CLOPIDOGREL BISULFATE 75 MG TAB PO SCH (09:00)
[2018-08-26] MEDS ORDERED: ASPIRIN 81 MG CHEW TAB PO SCH (09:00)
--- NOTE | 2018-08-26 09:32 | NUR ---
IMM letter delivered and reminded pt of his medicare rights. He verbalized understanding. stated MD plans to discharge him today and that he's ready to go home. Signed copy placed in chart. Copy to pt.
[2018-08-26] MEDS: CHOLECALCIFEROL 1,000 UNIT TAB PO SCH (09:45)
[2018-08-26] MEDS: METOPROLOL SUCCINATE 25 MG TAB XL PO SCH (09:45)
[2018-08-26] MEDS: VANCOMYCIN 500MG/NS 0.9% 100ML 100 ML IV SCH (09:45)
[2018-08-26] MEDS: INSULIN GLARGINE 100 UNITS/ML VIAL SQ SCH (09:50)
[2018-08-26] MEDS: INSULIN REGULAR, HUMAN 100 UNIT/1 ML 3ML VIAL SQ SCH ×3 (09:50→16:30)
--- NOTE | 2018-08-26 12:05 | Progress Note ---
DATE: 08/26/2018 SUBJECTIVE: The patient is seen at bedside, doing better. Denies any history of fever, chills, nausea, or vomiting. OBJECTIVE: VITAL SIGNS: Afebrile, pulse rate 71, respirations 20, blood pressure 194/81, and O2 saturation 95%. EXTREMITIES: Incision site looks good. Decreased cellulitis. No evidence of surgical dehiscence. Flap is viable. Skin temperature, warm to the touch. LABORATORY DATA: Show white blood cell count dropping to 11.8, hemoglobin 8.0, hematocrit 26.2 with a platelet count of 352. ASSESSMENT: Resolving cellulitis status post surgery with rotational flap closure. PLAN: Sterile dressing was applied. The patient will receive his IV antibiotic doses today, will be discharged on oral doxycycline and possible Cipro. The patient is instructed to follow up in the office, keep weightbearing to a minimum and home health will be ordered. BARBARA Roa/JESENIA /[id number]
--- NOTE | 2018-08-26 13:49 | NUR ---
CM SPOKE TO PATIENT AT BEDSIDE REGARDING HOME HEALTH SERVICES. PATIENT GIVEN CHOICES. PATIENT CHOSE [facility]. CLINICAL SENT TO [facility]. CHOICE LETTER PLACED IN CHART. PATIENT AWARE TO CALL CM IF HE DOES NOT RECEIVE SERVICES 48 HOURS POST DISCHARGE PATIENT DISCHARGING WITH HOME HEALTH: [facility] (P) [phone] (F) [phone]
[2018-08-26] MEDS: CEFEPIME 1GM/NS 0.9% 50 ML 50 ML IV SCH (14:54)
--- NOTE | 2018-08-26 15:55 | NUR ---
DENZEL SPOKE TO RAHEEM RN BESIDE NURSE REGARDING NEED FOR WOUND CARE ORDERS. ONCE RAHEEM RECEIVES WOUND CARE ORDERS AND PLACES THEM UNDER CASE MANAGEMENT ORDER, PATIENT IS CLEARED FOR DISCHARGE.
--- NOTE | 2018-08-26 18:30 | NUR ---
DISCUSSED WALKER WITH PT. PT'S SPOUSE STATED THAT PT WAS ABLE TO USE WALKER ALREADY AT HOME.
[2018-08-26] MEDS ORDERED: DOXYCYCLINE HY100 MG PO (19:01)
--- NOTE | 2018-08-27 04:02 | Progress Note ---
DATE: Cardiology Progress Note SUBJECTIVE: No complaints. OBJECTIVE: VITAL SIGNS: Temperature 97.6, heart rate 79, respiratory rate 18, blood pressure 183/70, and O2 saturation 95% on room air. GENERAL: In no acute distress, alert. NECK: No JVD. CHEST: Clear to auscultation. CARDIOVASCULAR: Regular rate and rhythm. Normal S1, S2. ABDOMEN: Soft. EXTREMITIES: No edema. Foot wound covered with dressings. CARDIOVASCULAR MEDICATIONS: Reviewed. Cefepime, aspirin, vancomycin, metoprolol, cyclosporine, hydralazine, clopidogrel. LABORATORY DATA: Studies reviewed. White blood cells 11.8, hemoglobin 8, platelets 359, creatinine 1.8, potassium 4, and glucose 271. ASSESSMENT: 1. Peripheral arterial disease, status post revascularization and amputation of rays by Podiatry. 2. Status post cellulitis of lower extremity. 3. Diabetes mellitus, type 2. 4. Chronic kidney disease, status post renal transplant, on immunosuppressive therapy. 5. Hypertension. 6. Anemia. 7. Dyslipidemia. RECOMMENDATIONS: 1. Continue antiplatelet therapy. 2. Continue statin. 3. Continue blood pressure medications and further up titration advised with close outpatient followup in 4-6 weeks. MD KEIRA Lea/JESENIA /[id number]
--- NOTE | 2018-08-28 05:23 | Discharge Summary ---
CONSULTANTS: 1. Ayden Miller DPM. 2. Jonathon Elizalde MD. FINAL DIAGNOSES: 1. Infected diabetic foot toe ulcer on the right foot. The patient failed outpatient treatment. 2. Status post toe amputation. Please review operating note by Dr. Ayden Miller. 3. Chronic kidney disease stage 3, associated with a history of kidney transplant. 4. Diabetes type 2, on insulin therapy. 5. Peripheral vascular disease. 6. Chronic multiple organ complication from diabetes type 2 and chronic medical disease. SUMMARY: A 52-year-old male with renal transplant, on immunosuppressants, came in with right foot cellulitis associated with multiple diabetic toe ulcers. The patient has both ischemia and infection. He also had a gangrene of the toe as well. Please review Podiatry note on specific grading of the toe ulceration. The patient received IV antibiotics. He also received angiogram with intervention. There was not much intervention done due to the patient's peripheral vascular disease, but adequate perfusion for toe amputation. The patient underwent procedures last Friday by Dr. Ayden Miller. The patient responded well. Wound looked healing. The patient has been cleared by Dr. Mondragon on consult with Infectious Disease and Dr. Ayden Miller for discharge home and with home health for wound care as well, which will be arranged by Dr. Ayden Miller. The patient will continue with doxycycline and follow up with Dr. Mondragon on the duration of the antibiotics as well. Antibiotic is orally. The patient is stable, discharged home. Resume home medication. Antibiotic per Dr. Mondragon and Wound Care. Home health, wound care consultation per Dr. Ayden Miller as an outpatient, will be arranged by Dr. Miller upon returning home. The patient is stable. His pain is limited due to his peripheral neuropathy due to diabetes type 2 complication. The patient discharged home on antibiotics per Dr. Mondragon and resume home medication including immunosuppressant. The patient is to follow up with me closely early next week. MD KODI Lee/MODL /[id number]
== END 2018-08-26 19:48 | disposition home health service (06) | DRG 253 ==
LOC: ER 16:46 → ERHOLD 17:25 → MED/SURG2 18:39
PROVIDERS: ADMIT Internal Medicine; ATTEND Internal Medicine
PROC: B41D1ZZ Fluoroscopy of Aorta and Bilateral Lower Extremity Arteries using Low Osmolar Contrast (ICD-10-PCS; principal; 2018-08-20)
PROC: 047P3Z1 Dilation of Right Anterior Tibial Artery using Drug-Coated Balloon, Percutaneous Approach (ICD-10-PCS; 2018-08-20)
PROC: 3E053PZ Introduction of Platelet Inhibitor into Peripheral Artery, Percutaneous Approach (ICD-10-PCS; 2018-08-20)
PROC: 0Y6R0Z1 Detachment at Right 2nd Toe, High, Open Approach (ICD-10-PCS; 2018-08-24)
PROC: 0Y6T0Z0 Detachment at Right 3rd Toe, Complete, Open Approach (ICD-10-PCS; 2018-08-24)
PROC: 0JXQ0ZB Transfer Right Foot Subcutaneous Tissue and Fascia with Skin and Subcutaneous Tissue, Open Approach (ICD-10-PCS; 2018-08-24)
PROC: 0J9Q0ZX Drainage of Right Foot Subcutaneous Tissue and Fascia, Open Approach, Diagnostic (ICD-10-PCS; 2018-08-24)
DX: E11.52 Type 2 diabetes mellitus with diabetic peripheral angiopathy with gangrene (principal); L03.115 Cellulitis of right lower limb; I70.261 Atherosclerosis of native arteries of extremities with gangrene, right leg; M86.8X7 Other osteomyelitis, ankle and foot; Z94.0 Kidney transplant status; N17.9 Acute kidney failure, unspecified; E11.69 Type 2 diabetes mellitus with other specified complication; E11.22 Type 2 diabetes mellitus with diabetic chronic kidney disease; I12.9 Hypertensive chronic kidney disease with stage 1 through stage 4 chronic kidney disease, or unspecified chronic kidney disease; N18.3 Chronic kidney disease, stage 3 (moderate); Z79.4 Long term (current) use of insulin; Z86.73 Personal history of transient ischemic attack (TIA), and cerebral infarction without residual deficits; D64.9 Anemia, unspecified; E11.621 Type 2 diabetes mellitus with foot ulcer; L97.514 Non-pressure chronic ulcer of other part of right foot with necrosis of bone
CPT/HCPCS: 36247; 36415; 37228; 75625; 75710; 80048; 80053; 80061; 80202; 81001; 82948; 85025; 85347; 85610; 85730; 87040; 87071; 87075; 87186; 87205; 88305; 88311; 93925; 96367; 97139; 99284; C1766; C1769; C1887; J0692; J0720; J1100; J1815; J2001; J2250; J2405; J2543; J3370; J7030; J7050; J7512; J7515; J7799; Q9967

== ENCOUNTER 2018-09-12 13:07 | Inpatient (IN) | payer MEDICARE ==
[~2018-09-12] VITALS: Ht 167.6 cm; Wt 68.2 kg
[~2018-09-12 13:07] MED LIST changes: +DOXYCYCLINE HY100 MG PO; +PLAVIX75 MG PO
[2018-09-12 13:52] LABS: BASOPHILS % 0.1 % (0.0-1.0); EOSINOPHILS % 0.3 % (0.0-6.0); HEMATOCRIT 32.3 % (38.2-49.6); LYMPHOCYTES # (AUTO) 1.4 (1.0-3.2); LYMPHOCYTES % 12.3 % (18.0-39.1); MEAN CORPUSCULAR HEMOGLOBIN 28.2 pg (28-32); MONOCYTES # (AUTO) 0.9 (0.2-0.8); MONOCYTES % 7.4 % (4.4-11.3); NEUTROPHILS # (AUTO) 9.1 (2.1-6.9); NEUTROPHILS % 79.6 % (38.7-80.0); PLATELET COUNT 251 x10e3/uL (140-360); RED BLOOD COUNT 3.55 x10e6/uL (4.3-5.7); RED CELL DISTRIBUTION WIDTH 12.9 % (11.7-14.4)
[2018-09-12 14:01] LABS: ALBUMIN 2.7 g/dL (3.5-5.0); ALBUMIN/GLOBULIN RATIO 0.6 (0.8-2.0); ANION GAP 13.6 mmol/L (8-16); CALCIUM 9.4 mg/dL (8.4-10.2); CREATININE, SERUM 2.02 mg/dL (0.72-1.25); POTASSIUM 4.6 mmol/L (3.5-5.1)
[2018-09-12] MEDS ORDERED: SODIUM CHLORIDE 0.9% 500ML 500 ML IV ONE (14:15)
[2018-09-12] MEDS ORDERED: ACETAMINOPHEN 325 MG TAB PO ONE (15:00)
[2018-09-12] MEDS ORDERED: PIPER-TAZ 3.375 GM 50 ML IV ONE (15:00)
--- NOTE | 2018-09-12 15:20 | Diagnostic Imaging Report ---
EXAMINATION: CHEST SINGLE (PORTABLE) INDICATION: ^PLANTAR MID-FOOT CELLULITIS ^[id number] ^[id number] COMPARISON: None FINDINGS: AP view TUBES and LINES: None. LUNGS: Low lung volumes. Mild central vascular congestion. There is no evidence of pneumonia or pulmonary edema. PLEURA: No pleural effusion or pneumothorax. HEART AND MEDIASTINUM: The cardiomediastinal silhouette is mildly enlarged. BONES AND SOFT TISSUES: No acute osseous lesion. Soft tissues are unremarkable. UPPER ABDOMEN: No free air under the diaphragm. IMPRESSION: Mildly enlarged cardiac silhouette and mild central vascular congestion, accentuated by low lung volumes. No focal consolidation. Signed by: Dr. Herbert Daniel MD on 09/12/2018 3:16 PM
--- NOTE | 2018-09-12 15:24 | Diagnostic Imaging Report ---
FOOT RIGHT COMPLETE - 3 views HISTORY: Plantar midfoot cellulitis COMPARISON: 08/24/2018 FINDINGS: Again seen amputation of the second toe at the level of the proximal phalanx and third toe at the level of the metatarsophalangeal joint. No acute fracture or dislocation. Erosive changes of the base of the proximal phalanx of the great toe. Again noted are calcifications along the plantar soft tissues of the foot and extensive small vessel arterial calcification. IMPRESSION: Again seen erosive changes of the base of the proximal phalanx of the great toe. Unchanged amputations as above. Signed by: Dr. Herbert Daniel MD on 09/12/2018 3:21 PM
[2018-09-12 15:25] LABS: BILIRUBIN,URINE NEGATIVE (NEGATIVE); CLARITY,URINE CLEAR (CLEAR); COLOR,URINE YELLOW (YELLOW); KETONES,URINE NEGATIVE (NEGATIVE); LEUKOCYTE ESTERASE ,URINE TRACE (NEGATIVE); NITRITE,URINE NEGATIVE (NEGATIVE); PROTEIN,URINE DIPSTICK NEGATIVE (NEGATIVE); URINE UROBILINOGEN 0.2 mg/dL (0.2 - 1)
[2018-09-12] MEDS ORDERED: VANCOMYCIN 1GM/NS 250 ML 250 ML IV ONE (15:30)
[2018-09-12 16:00] LABS: RBC,URINE 0-5 /HPF (0-5); WBC,URINE (MAN) 0-5 /HPF (0-5)
[2018-09-12 16:01] LABS: TRANSITIONAL EPI CELLS,URINE RARE
[2018-09-12 16:02] LABS: EPITHELIAL CELLS,URINE RARE /LPF
[2018-09-12] MEDS ORDERED: DEXTROSE 50% SYRINGE 50 ML IV ONE ×2 (16:30→17:00)
[2018-09-12] MEDS ORDERED: DEXTROSE 50% SYRINGE 50 ML IV PRN (17:15)
[2018-09-12] MEDS ORDERED: SODIUM CHLORIDE 0.9% 1000ML 1,000 ML IV ONE (17:15)
[2018-09-12] MEDS ORDERED: ONDANSETRON HCL INJ 2MG/ML 2ML 2 MG/ML VIAL IV PRN (17:15)
--- NOTE | 2018-09-12 19:10 | NUR ---
Walking rounds with NICK Roche. Patient in no distress at this time.
--- NOTE | 2018-09-12 19:55 | NUR ---
REPORT GIVEN TO RN ROOM 210.
[2018-09-12 20:00] VITALS: BP 164/70
--- NOTE | 2018-09-12 20:15 | NUR ---
Patient received via stretcher from ER accompanied by . BASSEM x 4. Admission history and Initial physical assessment completed. Patient had no complaints of pain or any other discomfort. No signs of respiratory distress. Patient oriented to room , call light and plan of care. Fall precautions implemented. Patient instructed to call for assistance when needed. Call light within reach.
[2018-09-12] MEDS: INSULIN LISPRO 100 UNIT/1 ML 3ML VIAL SQ SCH (21:00)
[2018-09-12 21:30] VITALS: BP 164/70
[2018-09-12] MEDS: PIPERACILLIN/TAZO 2.25 GM 50 ML IV SCH (22:00)
[2018-09-13] VITALS (7 sets, daily range): BP systolic 156–184; BP diastolic 68–78
[2018-09-13] MEDS ORDERED: CLINDAMYCIN HC150 MG PO (00:17)
[2018-09-13] MEDS ORDERED: METOPROLOL TART50 MG PO (00:17)
--- NOTE | 2018-09-13 01:30 | NUR ---
Dr. Lisa Benoit notified of elevated BP (169/75). Dr. Benoit stated "Why are you taking patient's BP at midnight. Don't call me except SBP is 200". No new order received.
[2018-09-13] MEDS: PIPERACILLIN/TAZO 2.25 GM 50 ML IV SCH ×4 (04:50→22:00)
[2018-09-13 06:58] LABS: BASOPHILS % 0.2 % (0.0-1.0); EOSINOPHILS # (AUTO) 0.1 (0.0-0.4); EOSINOPHILS % 0.7 % (0.0-6.0); HEMATOCRIT 29.6 % (38.2-49.6); HEMOGLOBIN 9.2 g/dL (14.0-18.0); LYMPHOCYTES % 19.2 % (18.0-39.1); MEAN CORPUSCULAR HEMOGLOBIN 27.7 pg (28-32); MEAN CORPUSCULAR HGB CONC 31.1 g/dL (31-35); MEAN CORPUSCULAR VOLUME 89.2 fL (81-99); MONOCYTES % 9.2 % (4.4-11.3); NEUTROPHILS # (AUTO) 7.5 (2.1-6.9); NEUTROPHILS % 70.4 % (38.7-80.0); PLATELET COUNT 219 x10e3/uL (140-360); RED BLOOD COUNT 3.32 x10e6/uL (4.3-5.7); RED CELL DISTRIBUTION WIDTH 12.8 % (11.7-14.4)
--- NOTE | 2018-09-13 07:20 | NUR ---
Received patient resting in bed, side rails upx2, call light within reach. AAOX3 to time, person, place. Respirations even and unlabored. FSBG 56. PRN dextrose given IV
[2018-09-13 07:23] LABS: ALBUMIN 2.4 g/dL (3.5-5.0); ALBUMIN/GLOBULIN RATIO 0.6 (0.8-2.0); ANION GAP 12.1 mmol/L (8-16); CALCIUM 9.2 mg/dL (8.4-10.2); CREATININE, SERUM 1.79 mg/dL (0.72-1.25); POTASSIUM 4.1 mmol/L (3.5-5.1)
[2018-09-13] MEDS: INSULIN LISPRO 100 UNIT/1 ML 3ML VIAL SQ SCH ×4 (07:30→21:00)
--- NOTE | 2018-09-13 07:47 | NUR ---
FSBG 167
--- NOTE | 2018-09-13 09:10 | NUR ---
aware of morning FSBG and BP 175/75
[2018-09-13] MEDS ORDERED: INSULIN GLARGINE 100 UNITS/ML VIAL SQ SCH (09:30)
[2018-09-13] MEDS ORDERED: SENNA-S TABLET PO PRN (09:30)
[2018-09-13] MEDS ORDERED: HYDRALAZINE HCL 25 MG TAB PO PRN (09:30)
[2018-09-13] MEDS ORDERED: ONDANSETRON HCL INJ 2MG/ML 2ML 2 MG/ML VIAL IV PRN (09:30)
[2018-09-13] MEDS ORDERED: CLONIDINE HCL 0.1 MG TAB PO PRN (09:30)
[2018-09-13] MEDS: METOPROLOL TARTRATE 50 MG TAB PO SCH (10:00)
[2018-09-13] MEDS: MYCOPHENOLATE SODIUM 360 MG PO SCH ×2 (10:00→17:00)
[2018-09-13] MEDS: DOXYCYCLINE HYCLATE TABLET 100 MG TAB PO SCH ×2 (10:00→17:03)
[2018-09-13] MEDS: PREDNISONE 5 MG TAB PO SCH (10:00)
[2018-09-13] MEDS: CLOPIDOGREL BISULFATE 75 MG TAB PO SCH (10:00)
--- NOTE | 2018-09-13 10:52 | Diagnostic Imaging Report ---
TECHNIQUE: Computed tomography imaging of the RIGHT foot was performed WITHOUT injected contrast. Dose modulation, iterative reconstruction, and/or weight based adjustment of the mA/kV was utilized to reduce the radiation dose to as low as reasonably achievable. HISTORY: Cellulitis of the foot COMPARISON: September 12, 2018 DISCUSSION: Prior amputation across the proximal phalanx second toe and at the third MTP joint. Fracture of the proximal phalanx of the hallux. Soft tissue infection of the forefoot with gas predominantly overlying the third metatarsal head probable osteomyelitis. Multifocal arthropathy predominantly involving the midfoot and hindfoot no consolidation. Vascular calcifications. IMPRESSION: Soft tissue infection with gas involving the forefoot adjacent to the third metatarsal head with probable osteomyelitis. Multifocal gout arthropathy. Fracture of the proximal phalanx of the hallux. Signed by: Dr. Dl Borden M.D. on 09/13/2018 10:48 AM
--- NOTE | 2018-09-13 13:58 | NUR ---
Notified of CT of right foot results. See orders
[2018-09-13] MEDS: CYCLOSPORINE 25 MG CAP PO SCH (17:03)
--- NOTE | 2018-09-13 19:11 | NUR ---
Resting in bed, at bedside. No s/s of acute distress noted. Report given to oncoming nurse. Oncoming nurse aware wound care to be done tonight. Awaiting for pharmacy to bring bactroban.
--- NOTE | 2018-09-13 19:25 | NUR ---
Patient received lying in bed. Family at bedside. AAO x 3. No acute distress noted. Fall precautions implemented. Patient instructed to call for assistance when needed. Call light within reach.
[2018-09-13] MEDS: MUPIROCIN 2% OINT 22 GM TUBE TOP SCH (21:00)
[2018-09-13] MEDS: PRAVASTATIN 20 MG TAB PO SCH (21:22)
--- NOTE | 2018-09-13 22:00 | NUR ---
Wound dressing done per MD's orders. Patient tolerated well.
[2018-09-14] VITALS (9 sets, daily range): BP systolic 134–160; BP diastolic 50–68
--- NOTE | 2018-09-14 02:04 | Consultation ---
DATE OF CONSULTATION: 09/13/2018 REASON FOR CONSULTATION: Cellulitis of the right foot with the patient being an insulin-dependent diabetic. HISTORY OF PRESENT ILLNESS: This is a pleasant 52-year-old male, who is very well known to me. The patient relates that he was doing very well from the nail avulsion performed to the right great toe, but starting to have [id number] pain to mid arch region of both lower extremities. The patient was seen 2 to 3 days ago at the office, started with a slight cellulitis to the mid foot aspect and was given clindamycin 300 mg to be taken three times a day per Dr. Benoit. According to the patient, the foot started getting worse. Currently, he is denying any history of fever, chills, nausea, or vomiting. He relates since he has been getting his IV antibiotics, he has decreased pain. PAST MEDICAL HISTORY: Remarkable for insulin-dependent diabetes, hypertension, and suffered a stroke 12 years ago. 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 ALLERGIES: PATIENT DENIES. SOCIAL HISTORY: Denies any smoking, drinking, or recreational drug use. FAMILY HISTORY: Remarkable for diabetes. CURRENT MEDICATIONS: Note listed in chart including IV Zosyn and oral doxycycline plus IV vancomycin. REVIEW OF SYSTEMS: CARDIAC: He is denying palpitations or arrhythmias. RESPIRATORY: Denies any shortness of breath or productive cough. GASTROINTESTINAL: Denies any diarrhea or constipation. GENITOURINARY: Denies hematuria or problems voiding. PHYSICAL EXAMINATION: VITAL SIGNS: Afebrile, pulse rate 70, respirations 20, blood pressure 160/69, O2 saturation 98%. PODIATRIC: Reveals the following; vasculature, pedal pulses of both the DP and PT are palpable, but somewhat diminished. Skin temperature warm to touch. CFT to all toes less than 4 seconds. NEUROLOGIC: Reveals a decreased protective sensation when utilizing [place] 5.07 monofilament wire. MUSCULOSKELETAL: Shows muscle mass to be asymmetrical. Some muscle weakness noted to the right lower extremity compared to the left. Foot pain in the arch region of the right foot. DERMATOLOGIC: Reveals a cellulitis of the midfoot aspect distally and moderate cellulitis in the plantar mid arch area with pain upon palpation. LABORATORY DATA: Labs show white blood cell count dropping from 11.4 to 10.6, hemoglobin 9.2, hematocrit 29.6 with a platelet count of 219. IMAGING DATA: X-rays visualized, no gas in the tissue. He does have a fractured proximal phalanx. ASSESSMENT: Cellulitis, diabetic neuropathy with decreased circulatory status. PLAN: We will continue IV antibiotics. We will start Bactroban ointment to affected areas q.i.d. in p.m., covered by light dry dressing. The patient may need antibiotics for 4 to 5 days. He seems responding very well with the IV antibiotics as of now. BARBARA Roa/JESENIA /[id number]
[2018-09-14] MEDS: PIPERACILLIN/TAZO 2.25 GM 50 ML IV SCH ×3 (03:58→21:56)
[2018-09-14] MEDS: VANCOMYCIN 500MG/NS 0.9% 100ML 100 ML IV SCH (05:51)
[2018-09-14] MEDS: INSULIN LISPRO 100 UNIT/1 ML 3ML VIAL SQ SCH ×4 (07:30→21:00)
[2018-09-14] MEDS: CYCLOSPORINE 25 MG CAP PO SCH ×2 (08:44→17:54)
[2018-09-14] MEDS: METOPROLOL TARTRATE 50 MG TAB PO SCH (08:44)
[2018-09-14] MEDS: DOXYCYCLINE HYCLATE TABLET 100 MG TAB PO SCH ×2 (08:44→17:54)
[2018-09-14] MEDS: CLOPIDOGREL BISULFATE 75 MG TAB PO SCH (08:44)
[2018-09-14] MEDS: MUPIROCIN 2% OINT 22 GM TUBE TOP SCH (08:44)
[2018-09-14] MEDS: PREDNISONE 5 MG TAB PO SCH (08:44)
[2018-09-14] MEDS: MYCOPHENOLATE SODIUM 360 MG PO SCH ×2 (08:53→17:00)
[2018-09-14] MEDS ORDERED: MUPIROCIN 2% OINT 22 GM TUBE TOP SCH (09:00)
--- NOTE | 2018-09-14 10:43 | NUR ---
CASE MANAGEMENT ASSESSMENT Dock Guard to bedside to discuss plan of care with patient/family. CM/SW role and care transitions discussed. Anticipated discharge plan discussed along with duration of care. CM/SW discussed patients right to make decisions in care. CM/SW work hours given. Patient lives: with his Syl Admit/Transfer: thru ED Hospital/ER visits since last admit: recently discharged on August 26, 2018 POA/Emergency contact: Syl Gordon [phone] Current/Previous Home Health: states that Dr. Miller's office set up home health, but he cannot remember the name of the company. Cm will call and get information. PCP/Follow-up Care: Dr. Benoit Current/Previous DME: uses walker at home and uses cane when out of the house Medications (referring to index hospitalization or the first time you were in the hospital) a. Were changes made in your medications when you were in the hospital on August 26, 2018? yes abx b. Did you understand the changes? yes c. Were you able to obtain your new medications right away? yes d. Were you able to take your medications like the doctor wanted you to? yes e. Did the hospital give you an accurate, easy to understand list of medications when you left? yes Pt stated he saw Dr. Miller on Friday after dc, he received abx and he finished the course of abx and wasn't getting better so went to see Dr. Benoit on and received more abx. Went back to see Dr. Miller on Friday. Foot was red, painful, and swollen so he came to ED. Scale of 1-10 how comfortable does patient feel with disease management in outpatient setting: Other Services: none Employment Status: disabled Areas of Concerns: cellulitis of right foot, may need I&D Referral Needs: HH vs SNF Education Needs: cellulitis, medical management IMM/BROWNLEE given and signed (if applicable): IMM letter delivered and explained. pt verbalized understanding. Goal for discharge: Home CM/SW left business card at the bedside with contact information. Name and number was also written on the patients whiteboard. Patient verbalized understanding of discussion. CM will follow-up with ongoing discharge and transition of care needs.
--- NOTE | 2018-09-14 12:57 | Consultation ---
DATE OF CONSULTATION: 09/14/2018 SUBJECTIVE: The patient seen at bedside, doing better. Denies any history of fever, chills, nausea, or vomiting. OBJECTIVE: VITAL SIGNS: Afebrile, pulse rate 69, respirations 20, blood pressure 160/68 with O2 saturation 99%. LABS: Noted. Cellulitis to the right foot is starting to go down. Still has positive edema and pain from mid arch region in the right foot, but better. IMAGING: X-rays were negative for any gas in the tissue, does have a proximal phalangeal fracture to the right great toe. ASSESSMENT: Cellulitis, peripheral arterial disease, diabetic neuropathy, responding to IV antibiotics and local wound care. PLAN: Continue Bactroban ointment. Continue vancomycin IV, Zosyn IV, and doxycycline orally. Continue offloading. We will continue to follow. The patient may need approximately one more week of IV antibiotics. BARBARA Roa/JESENIA /[id number]
[2018-09-14] MEDS: PRAVASTATIN 20 MG TAB PO SCH (21:56)
[2018-09-15 00:35] VITALS: BP 167/70
[2018-09-15] MEDS: PIPERACILLIN/TAZO 2.25 GM 50 ML IV SCH ×3 (04:26→16:50)
[2018-09-15 04:45] VITALS: BP 189/77
[2018-09-15] MEDS: VANCOMYCIN 500MG/NS 0.9% 100ML 100 ML IV SCH (05:03)
[2018-09-15 08:42] VITALS: BP 142/63
[2018-09-15 09:11] VITALS: BP 142/63
[2018-09-15] MEDS: MYCOPHENOLATE SODIUM 360 MG PO SCH ×2 (09:11→16:51)
[2018-09-15] MEDS: PREDNISONE 5 MG TAB PO SCH (09:11)
[2018-09-15] MEDS: METOPROLOL TARTRATE 50 MG TAB PO SCH (09:11)
[2018-09-15] MEDS: CLOPIDOGREL BISULFATE 75 MG TAB PO SCH (09:11)
[2018-09-15] MEDS: INSULIN LISPRO 100 UNIT/1 ML 3ML VIAL SQ SCH ×3 (09:11→16:52)
[2018-09-15] MEDS: MUPIROCIN 2% OINT 22 GM TUBE TOP SCH (09:11)
[2018-09-15] MEDS: DOXYCYCLINE HYCLATE TABLET 100 MG TAB PO SCH ×2 (09:11→16:51)
[2018-09-15] MEDS: CYCLOSPORINE 25 MG CAP PO SCH ×2 (09:11→16:51)
[2018-09-15] MEDS ORDERED: INSULIN GLARGINE 100 UNITS/ML VIAL SQ ONE (10:00)
--- NOTE | 2018-09-15 11:19 | NUR ---
Received LTAC eval order. CM spoke to pt at bedside and explained plan of care. Pt is agreeable with LTAC at [facility]. Choice letter signed and placed in chart. Copy to pt. CM notified Natalie Galan with [facility].
[2018-09-15 12:02] VITALS: BP 113/55
--- NOTE | 2018-09-15 12:22 | Progress Note ---
DATE: SUBJECTIVE: The patient is seen at bedside, doing better, decreased pain to the right lower extremity. Denies any history of fever, chills, nausea, or vomiting. OBJECTIVE: VITAL SIGNS: Afebrile. Vital signs stable. EXTREMITIES: Decreased cellulitis noted. Still some pain to the midfoot aspect of the right lower extremity. Flaps are viable to the forefoot aspect of the right lower extremity. It has a swollen right great toe secondary to a fracture. ASSESSMENT: Fractured right great toe with cellulitis and abscess of right foot, responding to IV antibiotics. PLAN: Continue IV antibiotics. Continue Bactroban ointment. We will continue to follow. The patient will need at least 3 to 4 more days of IV antibiotics before discharge. BARBARA Roa/JESENIA /[id number]
--- NOTE | 2018-09-15 15:32 | NUR ---
Received MOT from Natalie Galan with [address] [place] [address] [id number] Accepting MD: Dr. Benoit Admin: Marcelino Acevedo, FUND ACCOUNTANT MOT was completed and placed at nurse's station. GILBERTO Álvarez was informed.
[2018-09-15] MEDS ORDERED: INSULIN GLARGINE 100 UNITS/ML VIAL SQ SCH (16:30)
[2018-09-15 16:53] VITALS: BP 173/69
== END 2018-09-15 18:30 | DRG 638 ==
LOC: ER 13:09 → ERHOLD 17:02 → MED/SURG2 20:30
PROVIDERS: ADMIT Internal Medicine; ATTEND Internal Medicine
DX: E11.628 Type 2 diabetes mellitus with other skin complications (principal); L02.611 Cutaneous abscess of right foot; Z94.0 Kidney transplant status; L03.115 Cellulitis of right lower limb; N18.3 Chronic kidney disease, stage 3 (moderate); E11.40 Type 2 diabetes mellitus with diabetic neuropathy, unspecified; Z79.4 Long term (current) use of insulin; S92.411S Displaced fracture of proximal phalanx of right great toe, sequela; E11.22 Type 2 diabetes mellitus with diabetic chronic kidney disease; I13.10 Hypertensive heart and chronic kidney disease without heart failure, with stage 1 through stage 4 chronic kidney disease, or unspecified chronic kidney disease; Z89.421 Acquired absence of other right toe(s)
CPT/HCPCS: 36415; 71045; 80053; 81001; 82948; 83605; 83735; 85025; 87040; 87086; 87205; 99284; J1815; J2543; J3370; J7030; J7040; J7512; J7515; J7799

== ENCOUNTER 2019-05-06 16:26 | Inpatient (IN) | payer MEDICARE ==
[~2019-05-06] VITALS: Ht 167.6 cm; Wt 70.3 kg
[~2019-05-06 16:26] MED LIST changes: +CLINDAMYCIN HC150 MG PO; +METOPROLOL TART50 MG PO
[2019-05-06] MEDS ORDERED: SODIUM CHLORIDE 0.9% 1000ML 1,000 ML IV STA (17:23)
[2019-05-06] MEDS ORDERED: VANCOMYCIN 1GM/NS 250 ML 250 ML IV ONE (17:30)
[2019-05-06] MEDS ORDERED: MEROPENEM 1GM 100 ML IV ONE (17:45)
--- NOTE | 2019-05-06 18:23 | Diagnostic Imaging Report ---
EXAMINATION: CHEST SINGLE (PORTABLE) INDICATION: ^FEVER ^[id number] ^[id number] COMPARISON: Chest x-ray, 09/12/2018 FINDINGS: TUBES and LINES: None. LUNGS: Lungs are well inflated. Lungs are clear. There is no evidence of pneumonia or pulmonary edema. PLEURA: No pleural effusion or pneumothorax. HEART AND MEDIASTINUM: The cardiomediastinal silhouette is unremarkable. BONES AND SOFT TISSUES: No acute osseous lesion. Soft tissues are unremarkable. UPPER ABDOMEN: No free air under the diaphragm. IMPRESSION: The heart is upper normal size, likely accentuated by positioning and low lung volumes. No evidence for acute disease or significant change. Signed by: Dr. Tha Shrestha M.D. on 05/06/2019 6:20 PM
[2019-05-06 18:29] LABS: INR 1.04; PARTIAL THROMBOPLASTIN TIME 37.1 seconds (23.8-35.5); PROTHROMBIN TIME 14.1 seconds (11.9-14.5)
[2019-05-06 18:41] LABS: HEMATOCRIT 37.5 % (38.2-49.6); HEMOGLOBIN 11.7 g/dL (14.0-18.0); MEAN CORPUSCULAR HEMOGLOBIN 28.5 pg (28-32); MEAN CORPUSCULAR HGB CONC 31.2 g/dL (31-35); MEAN CORPUSCULAR VOLUME 91.2 fL (81-99); MONOCYTES % 1.3 % (4.4-11.3); NEUTROPHILS % 13.4 % (38.7-80.0); PLATELET COUNT 151 x10e3/uL (140-360); RED BLOOD COUNT 4.11 x10e6/uL (4.3-5.7); RED CELL DISTRIBUTION WIDTH 13.3 % (11.7-14.4)
[2019-05-06] MEDS ORDERED: ACETAMINOPHEN 325 MG TAB ONE (18:41)
[2019-05-06] MEDS ORDERED: ACETAMINOPHEN 325 MG TAB PO STA (18:42)
[2019-05-06 18:47] LABS: ANION GAP 24.7 mmol/L (8-16)
[2019-05-06 18:48] LABS: ALBUMIN 3.4 g/dL (3.5-5.0); ALBUMIN/GLOBULIN RATIO 0.8 (0.8-2.0); CALCIUM 9.4 mg/dL (8.4-10.2); CREATINE KINASE MB 1.7 ng/mL (0-5.0); CREATININE, SERUM 3.57 mg/dL (0.72-1.25)
[2019-05-06 18:49] LABS: POTASSIUM 5.7 mmol/L (3.5-5.1)
[2019-05-06 18:52] LABS: STREPTOCOCCUS GRP A ANTIGEN NEGATIVE (NEGATIVE)
--- NOTE | 2019-05-06 18:54 | NUR ---
WALKED INTO PTS ROOM AND PT WAS TAKING HOME INSULIN. PT REPORTS HE TOOK 25 UNITS OF LANTUS AND 10 UNITS OF REGULAR.
[2019-05-06 19:03] LABS: MAGNESIUM 2.2 MG/DL (1.3-2.1)
[2019-05-06 19:03] LABS: INFLUENZAE A&B ANTIGEN (RAPID) POSITIVE FLU A (NEGATIVE)
[2019-05-06 19:18] LABS: ABG PCO2 27 mmHg (41-51); ABG PH 7.31 (7.31-7.41); ABG PO2 104 mmHg (80-105)
[2019-05-06 19:19] LABS: ABG HCO3 14 mmol/L (23-28)
[2019-05-06] MEDS: OSELTAMIVIR PHOSPHATE 75 MG CAP PO SCH (19:36)
[2019-05-06] MEDS ORDERED: INSULIN REGULAR, HUMAN 100 UNIT/1 ML 3ML VIAL IV ONE (19:45)
[2019-05-06] MEDS ORDERED: SODIUM CHLORIDE 0.9% 1000ML 1,000 ML IV ONE ×3 (19:45→22:45)
--- NOTE | 2019-05-06 20:18 | NUR ---
informed dr cancino of patients own injection of home insulin in full. recieved orders to dont give 10 units of insulin iv. patient reiterated that he must not take home medications without telling this staff
[2019-05-06] MEDS: FAMOTIDINE 20 MG/2 ML VIAL IV SCH (20:30)
[2019-05-06 21:00] LABS: CLARITY,URINE SL CLOUDY (CLEAR); COLOR,URINE YELLOW (YELLOW); LEUKOCYTE ESTERASE ,URINE TRACE (NEGATIVE); NITRITE,URINE NEGATIVE (NEGATIVE)
[2019-05-06] MEDS ORDERED: RAMIPRIL 5 MG CAP PO SCH (21:00)
[2019-05-06] MEDS ORDERED: PRAVASTATIN 20 MG TAB PO SCH (21:00)
[2019-05-06] MEDS ORDERED: NON-FORMULARY MEDICATION (Pravastatin Sodium 40 MG) PO SCH (21:00)
[2019-05-06 21:01] LABS: BILIRUBIN,URINE NEGATIVE (NEGATIVE); KETONES,URINE NEGATIVE (NEGATIVE); PROTEIN,URINE DIPSTICK 1+ (NEGATIVE); URINE UROBILINOGEN 0.2 mg/dL (0.2 - 1)
--- NOTE | 2019-05-06 21:02 | NUR ---
Dr Rodriguez spoke to attending , he wants dr will dka protocol. orders acknowledged
--- NOTE | 2019-05-06 21:12 | NUR ---
patient took anti-rejection kidney medications according to label instructions
[2019-05-06 21:13] LABS: BACTERIA,URINE RARE /HPF; EPITHELIAL CELLS,URINE FEW /LPF; WBC,URINE (MAN) 0-5 /HPF (0-5)
--- NOTE | 2019-05-06 21:57 | NUR ---
dr.hamer lowe for critical lactic
--- NOTE | 2019-05-06 22:02 | NUR ---
informed dr woodruff in full of lactic that has not changed, results read back in full. recieved orders to give one more NS liter over 4 hours. Informed he is also on dr will dka protocol. dr woodruff is in agreement with this dka protocol
[2019-05-06] MEDS: INSULIN REGULAR, HUMAN 3ML VL 100 UNIT in SODIUM CHLORIDE 0.45% 100 ML 100 ML IV SCH ×2 (22:38)
--- NOTE | 2019-05-06 23:56 | Consultation ---
DATE OF CONSULTATION: Critical Care Consultation CHIEF COMPLAINT: Fever, congestion and cough. HISTORY OF PRESENT ILLNESS: The patient is a 53-year-old man. He had the kidney transplant in 2005. He is on cyclosporine as well as mycophenolate. He follows with the curtain stretcher on [facility]. He also sees Dr. Salinas on occasion. He required hospitalization several times here at [facility] over the past year because of an abscess in his foot. He reports that this is healing. The patient now complains of increased congestion and cough. He noted some fevers. He went to see Dr. Benoit in the office and was subsequently referred over to the emergency department. After arrival in the emergency department, he was found to be positive for influenza A and have an elevated blood sugar in the low 500s. He receives some insulin as well as some IV fluids and antibiotics. He notes some improvement, but still has some congestion and sore throat. PAST SURGICAL HISTORY: 1. Status post kidney transplant. 2. Status post incision and drainage of abscess of the foot. PAST MEDICAL HISTORY: 1. Diabetes. 2. Hypertension. 3. Prior kidney transplant. ALLERGIES: NO KNOWN DRUG ALLERGIES. SOCIAL HISTORY: The patient is not an active smoker. He is not a drinker. REVIEW OF SYSTEMS: He had some fever. He has no headache. He has no neck pain. He is not having any chest pain. He does note some cough and congestion. He has no abdominal pain. He has no nausea or vomiting. PHYSICAL EXAMINATION: VITAL SIGNS: The patient is afebrile. The temperature is 101.8. The blood pressure is 195/55 and pulse is 98%. HEENT: Shows no facial swelling or erythema. CARDIAC: Reveals regular rate and rhythm with normal S1, S2. LUNGS: Auscultation of lungs reveals rhonchorous breath sounds bilaterally. There is no wheezing. ABDOMEN: Soft, nontender. There is no rebound or guarding. EXTREMITIES: Shows a bandaged right foot. LABORATORY DATA: White blood cell count is 15.8 and hemoglobin is 11.7. The platelet count is 151. The BUN to creatinine ratio is 96-3.57, and blood sugar is 521. The other electrolytes are significant for a carbon dioxide of 14. IMPRESSION: 1. Acute on chronic renal failure in a patient with a prior kidney transplant. 2. Influenza. 3. Sepsis of unclear etiology, present on admission. 4. Diabetic ketoacidosis. 5. Hypertension. 6. Healing abscess in the right foot. 7. Peripheral vascular disease. PLAN: 1. The patient has received IV fluids as well as initial antibiotics in the emergency department. 2. Begin insulin drip. 3. Continue antibiotics. 4. The patient will need his anti-rejection medications. 5. Nephrology consult. 6. Infectious Disease consultation. 7. Wound care. Chip Melo MD LM/MODL /[id number]
[2019-05-07] VITALS (25 sets, daily range): BP systolic 104–172; BP diastolic 42–86
[2019-05-07] MEDS: INSULIN REGULAR, HUMAN 3ML VL 100 UNIT in SODIUM CHLORIDE 0.45% 100 ML 100 ML IV SCH ×2 (00:04)
[2019-05-07] MEDS: DEXTROSE 50% SYRINGE 50 ML IV PRN ×2 (03:00→07:04)
[2019-05-07] MEDS ORDERED: MEROPENEM 500MG/ NS 50ML 50 ML IV SCH (05:00)
[2019-05-07] MEDS ORDERED: MEROPENEM 500MG 500 MG in SODIUM CHLORIDE 0.9% 50ML 50 ML IV SCH (05:00)
[2019-05-07 05:21] LABS: BASOPHILS % 0.1 % (0.0-1.0); HEMOGLOBIN 9.5 g/dL (14.0-18.0); LYMPHOCYTES # (AUTO) 1.3 (1.0-3.2); LYMPHOCYTES % 13.9 % (18.0-39.1); MEAN CORPUSCULAR HEMOGLOBIN 27.6 pg (28-32); MEAN CORPUSCULAR HGB CONC 30.6 g/dL (31-35); MEAN CORPUSCULAR VOLUME 90.1 fL (81-99); MONOCYTES % 11.4 % (4.4-11.3); NEUTROPHILS # (AUTO) 6.7 (2.1-6.9); NEUTROPHILS % 74.3 % (38.7-80.0); PLATELET COUNT 144 x10e3/uL (140-360); RED BLOOD COUNT 3.44 x10e6/uL (4.3-5.7); RED CELL DISTRIBUTION WIDTH 13.2 % (11.7-14.4)
[2019-05-07 05:46] LABS: CHOL/HDL RATIO 4.7 (3.9-4.7)
[2019-05-07] MEDS: NIFEDIPINE CR 30 MG TAB PO SCH ×2 (06:00→17:51)
--- NOTE | 2019-05-07 06:10 | NUR ---
Spoke with Keshia at Dr. Mondragon's answering service regarding consult. Spoke with Landy at Dr. Delgado's answering service regarding consult.
[2019-05-07 06:22] LABS: CREATINE KINASE MB 1.5 ng/mL (0-5.0)
[2019-05-07 06:46] LABS: ALBUMIN 2.6 g/dL (3.5-5.0); ALBUMIN/GLOBULIN RATIO 0.8 (0.8-2.0); ANION GAP 15.4 mmol/L (8-16); CALCIUM 8.2 mg/dL (8.4-10.2); CREATININE, SERUM 2.72 mg/dL (0.72-1.25); POTASSIUM 4.4 mmol/L (3.5-5.1)
[2019-05-07 07:06] LABS: BAND NEUTROPHILS % (MANUAL) 1 %; LYMPHOCYTES % (MANUAL) 11 % (19-48); MONOCYTES % (MANUAL) 9 % (3.4-9.0); NEUTROPHILS % (MANUAL) 77 % (40-74)
--- NOTE | 2019-05-07 07:06 | NUR ---
Notified Dr. Melo of low blood sugars since 299 and dropped to 40s x 2. Order obtained for renal diet and IVF x 1 Poncho Cobb RN was notified of all orders received.
[2019-05-07 07:08] LABS: RBC MORPHOLOGY COMMENT NORMAL
[2019-05-07 07:09] LABS: PLATELET ESTIMATE ADEQUATE
[2019-05-07 07:10] LABS: PLATELET MORPHOLOGY COMMENT FEW LARGE
[2019-05-07] MEDS ORDERED: SODIUM CHLORIDE 0.45% 1,000 ML IV ONE (07:15)
[2019-05-07] MEDS: ONDANSETRON HCL INJ 2MG/ML 2ML 2 MG/ML VIAL IV PRN (07:23)
--- NOTE | 2019-05-07 08:21 | Diagnostic Imaging Report ---
Examination: Single AP view of the chest. COMPARISON: 05/06/2019 INDICATION: Influenza DISCUSSION: Lung volumes are low with worsening right middle lobe opacities. No pleural effusion or pneumothorax. Stable cardiomediastinal contour, with borderline enlargement of the cardiac silhouette and no overt pulmonary edema. No acute osseous abnormality. Healed fracture deformities of the posterior right fourth and fifth ribs. IMPRESSION: Low lung volumes with worsening right middle lobe subsegmental atelectasis. Signed by: Dr. Kevin Honeycutt M.D. on 05/07/2019 8:18 AM
[2019-05-07] MEDS: FAMOTIDINE 20 MG/2 ML VIAL IV SCH ×2 (08:54→20:40)
[2019-05-07] MEDS: CHOLECALCIFEROL 1,000 UNIT TAB PO SCH (08:55)
[2019-05-07] MEDS: OSELTAMIVIR PHOSPHATE 75 MG CAP PO SCH (08:56)
[2019-05-07] MEDS ORDERED: CYCLOSPORINE MODIFIED PO SCH (09:00)
[2019-05-07] MEDS ORDERED: METOPROLOL TARTRATE 50 MG TAB PO SCH (09:00)
[2019-05-07] MEDS ORDERED: MYCOPHENOLATE SODIUM 360 MG PO SCH (09:00)
[2019-05-07] MEDS ORDERED: NIFEDIPINE CR 30 MG TAB PO ONE (09:00)
[2019-05-07] MEDS ORDERED: CYCLOSPORINE 25 MG CAP PO SCH (09:00)
--- NOTE | 2019-05-07 10:18 | NUR ---
WOUND CARE CONSULT PATIENT SEEN IN ICU R/T DIABETIC ULCERATION TO RIGHT FOOT. PATIENT DRESSING IN TACT WITH NEW GRAFT PLACEMENT FROM OUTPATIENT CLINIC NOT TO BE UNDRESSED UNTIL FRIDAY . WILL CONTACT PATIENT CLINIC IN ORDER TO COORDINATE CARE OF GRAFT AREA AND F/U FRIDAY Addendum: 05/07/19 at 1022 by Siddhartha Acevedo RN Amended: Links added.
[2019-05-07] MEDS: NEORAL 25 MG PO SCH ×2 (10:30→17:49)
[2019-05-07] MEDS: CEFTRIAXONE SOD 1 GM/NS 50 ML 50 ML IV SCH (13:03)
[2019-05-07 13:59] LABS: CREATINE KINASE MB 1.6 ng/mL (0-5.0)
--- NOTE | 2019-05-07 14:49 | Progress Note ---
DATE: SUBJECTIVE: The patient is feeling better. He is off the insulin drip. He is not having fevers. PHYSICAL EXAMINATION: VITAL SIGNS: The patient is afebrile. The blood pressure is 158/47 and the pulse is 69. CARDIAC: Reveals regular rate and rhythm with normal S1 and S2. LUNGS: Auscultation of lungs reveals clear breath sounds bilaterally. There is no wheezing. ABDOMEN: Soft, nontender. There is no rebound or guarding. EXTREMITIES: Show no leg edema or calf tenderness. LABORATORY DATA: BUN to creatinine ratio has improved to 93/2.7 and the bicarbonate is increased to 18. White blood cell count is 9, hemoglobin is 9.5. The platelet count is 144. IMPRESSION: 1. Acute on chronic renal failure in a patient with prior renal transplant. 2. Influenza. 3. Diabetic ketoacidosis. 4. Hypertension. 5. Anemia secondary to chronic blood loss. PLAN: 1. The patient is off insulin drip and can be transferred out of the Intensive Care Unit. 2. Continue anti-rejection medications. 3. Awaiting further input from Infectious Disease and Nephrology. 4. Continue Tamiflu. Chip Melo MD [facility]/MODL /[id number]
--- NOTE | 2019-05-07 15:24 | History and Physical ---
PRIMARY CARE PHYSICIAN: Dr. Jackson Benoit. CONSULTANTS: 1. Dr. Gonzales Mondragon. 2. Dr. Adryan Delgado. 3. Dr. Chip Melo. CHIEF COMPLAINT: Sepsis, influenza, community-acquired pneumonia, acute kidney failure, cough, and fever. HISTORY OF PRESENT ILLNESS: The patient is a 53-year-old male, baseline kidney transplant back in 2005. The patient is on immunosuppressive medication. The patient came in with significant fever of 102. He was having cough, nausea, and vomiting. Cannot keep anything down and come to the office. The patient was evaluated and came to the emergency room at [facility] for further evaluation. The patient in the emergency room was found to have DKA associated with blood sugar greater than 500, metabolic acidosis with gap and chest x-ray showed possible pneumonia, influenza A/B positive. The patient was dehydrated, nausea and vomiting. The patient admitted to the ICU, insulin drip, IV fluids, antibiotics. The patient is currently in the ICU. He seems to be stable at this time. PAST MEDICAL HISTORY: Chronic kidney disease, diabetes type 2 on insulin, hypertension with chronic kidney failure, not on dialysis now. The patient had multiple wounds to the right foot with multiple amputation and wound care, ongoing diabetic foot ulcer. Blind in one eye and dyslipidemia. PAST SURGICAL HISTORY: Kidney stone, revision of amputation of his right foot toe. AV fistula dialysis access. SOCIAL HISTORY: The patient does not smoke or use alcohol. No recreational drugs. ALLERGIES: NO KNOWN ALLERGIES. HOME MEDICATIONS: List is reviewed. REVIEW OF SYSTEMS: Fever, cough, nausea and vomiting, not feeling well, and shortness of breath. PHYSICAL EXAMINATION: VITAL SIGNS: T-max was 102, blood pressure 151/70, pulse rate was 88, and respirations 22. GENERAL: The patient is more comfortable now. HEENT: Normocephalic and atraumatic. Pupils reactive. Anicteric. He is blind to the one eye. NECK: Supple. PULMONARY: Diminished breath sounds bilaterally with coarses and rhonchi. CARDIOVASCULAR: S1 and S2. Regular rate and rhythm. ABDOMEN: Soft. EXTREMITIES: Right foot wound, chronic venous stasis. NEUROLOGIC: No focal deficit. LABORATORY DATA: WBC is 15.8, hemoglobin 11.7, hematocrit 37.5, and platelets 151. Chemistry; sodium is 131, potassium 5.7, chloride 97, bicarb 15, BUN 96, creatinine 3.6, and glucose 5.1. Lactic acid 2.6. Magnesium 2.1. AST and ALT are normal. Urinalysis; 1+ protein, 1+ blood, and trace leukocyte esterase. Coagulation is normal. Blood gas; pH is 7.3, pCO2 27, pO2 104, and bicarb 14. IMAGING TESTS: Chest x-ray, right middle lobe possible infiltrate, low volume. IMPRESSION: 1. Sepsis, but without shock. The patient has high lactic acid level. The influenza test nasal swab is positive A/B antigen. 2. Right middle lobe pneumonia most likely. 3. Urinary tract infection. 4. Diabetic ketoacidosis. 5. Severe dehydration. 6. Acute kidney injury on chronic kidney disease secondary to the above. PLAN: Continue with DKA treatment. IV fluids. Antibiotics. Consultation with Dr. Mondragon, Dr. Delgado and Dr. Chip Melo. Continue to monitor the patient closely. We will follow up on the patient's status today. MD KODI Lee/MODL /[id number]
[2019-05-07] MEDS ORDERED: DEXTROSE 50% SYRINGE 50 ML IV PRN ×2 (15:45→17:00)
[2019-05-07] MEDS: INSULIN REGULAR, HUMAN 100 UNIT/1 ML 3ML VIAL SQ SCH ×2 (17:47→21:00)
[2019-05-07] MEDS: SODIUM BICARBONATE 650 MG TAB PO SCH (17:49)
--- NOTE | 2019-05-07 18:46 | Consultation ---
DATE OF CONSULTATION: REASON FOR CONSULTATION: Aspiration pneumonia. HISTORY OF PRESENT ILLNESS: This patient is a very pleasant 53-year-old Maur[place] male with history of end-stage renal disease, status post renal transplant in 2005. He is on cyclosporine and mycophenolate. The patient comes in with fever, chills, cough for few days, not feeling well. The patient was sent here. He was feeling quite bad. Apparently, he has been in Intensive Care Unit. The patient has history of kidney disease, status post kidney transplant, history of abscess of the foot, status post I and D, history of diabetes mellitus, hypertension. FAMILY HISTORY: Hypertension and diabetes. LABORATORY DATA: He is just not feeling well. When he first came, his white count was 15.7 came down to 9. His sodium was 137, potassium 4.4, creatinine 2.72. Liver enzyme within normal limit. He had a chest x-ray, which showed right middle lobe atelectasis. MEDICATIONS: The patient was started on: 1. Tamiflu. 2. Vitamin D. 3. Pepcid. 4. Zofran. 5. Meropenem. PAST MEDICAL HISTORY: As above. PAST SURGICAL HISTORY: As above. ALLERGIES: NKA. SOCIAL HISTORY: No smoking, drug abuse, or alcohol abuse. REVIEW OF SYSTEMS: PULMONARY: Shortness of breath and cough. : Negative. GI: Negative otherwise. SKIN: There is no rash. Review of systems otherwise unremarkable. PHYSICAL EXAMINATION: VITAL SIGNS: When he first came, temperature of 101.8, came down to 98.9. HEENT: He is not icteric. NECK: Supple. CHEST: Few crackles bilateral. COR: S1 and S2. No S3, S4, murmur. ABDOMEN: Soft. Bowel sounds present. No tenderness. EXTREMITIES: No edema. SKIN: No rash. IMPRESSION: 1. Sepsis on admission. 2. Community-acquired pneumonia. 3. Diabetes mellitus. 4. Status post renal transplant. 5. Influenza A present on admission. RECOMMENDATION: 1. I agree with Tamiflu 75 mg p.o. daily for his kidney function. We will put him on Rocephin 1 g a day. Await blood cultures and urine cultures. 2. I agree with supportive care. 3. Further recommendations to follow. Zaher Shebib, MD ZS/JESENIA /[id number]
--- NOTE | 2019-05-07 20:27 | Consultation ---
DATE OF CONSULTATION: 05/07/2019 The patient is seen in the emergency room a 53-year-old gentleman known to our Nephrology service with underlying history of diabetes with diabetic complications including diabetic retinopathy, neuropathy, peripheral vascular disease, chronic foot infection, osteomyelitis, history of kidney transplant with chronic rejection, maintained on immunosuppressive medication. He is on mycophenolate, Myfortic 360 mg twice a day. He is on cyclosporine 75 mg twice a day, prednisone 5 mg daily. He has underlying history of hypertension, anemia, chronic kidney disease. Currently lying supine, in no apparent distress. He also tested positive for flu. His blood sugars have been relatively erratic. ALLERGIES: NO APPARENT DRUG ALLERGIES. SOCIAL HISTORY: Does not smoke or drink. Has a supportive family. CURRENT MEDICATIONS: Patient has been started on Tamiflu. He is on pravastatin, ramipril 10 mg at bedtime. Morphine p.r.n., cholecalciferol. He has been resumed on his transplant medications, received a bolus of normal saline. Currently on a dose of 1 g meropenem currently ceftriaxone 1 g IV every 24. PHYSICAL EXAMINATION: Awake, alert, oriented x3. No apparent distress with a blood pressure of 172/48, pulse rate 77, afebrile, respiratory rate 17. HEAD AND NECK: Cornea clear. Oral mucosa moist. Neck veins flat. LUNGS: Relatively clear. HEART: S1, S2 audible. ABDOMEN: Soft, nontender. No apparent visceromegaly. EXTREMITIES: Lower extremity no edema. LABORATORY DATA: White count 9, hemoglobin 9.5. His creatinine is 2.72 with a sodium 137, potassium 4.4, bicarbonate 18. IMPRESSION AND PLAN: Acute on chronic kidney failure, underlying chronic rejection with evidence of distal renal tubular acidosis. Serum creatinine improved from yesterday. Has acute kidney injury, but resolving. Plan on adding sodium bicarbonate tablets. Continue with the existing plan of care. Consider Endocrinology consultation. Monitor the patient's kidney function, urine output with you. Continue with the immunosuppressive medications, Myfortic, cyclosporine, prednisone. Discussed with bedside RN. Adryan Delgado MD SAK/MODL /[id number]
[2019-05-07] MEDS: MYCOPHENOLATE SODIUM 360 MG PO SCH (21:25)
[2019-05-08] VITALS (18 sets, daily range): BP systolic 96–148; BP diastolic 35–67
[2019-05-08] MEDS: ACETAMINOPHEN 325 MG TAB PO PRN ×2 (01:19)
[2019-05-08 05:25] LABS: BASOPHILS % 0.2 % (0.0-1.0); EOSINOPHILS % 0.2 % (0.0-6.0); HEMATOCRIT 33.7 % (38.2-49.6); HEMOGLOBIN 10.5 g/dL (14.0-18.0); LYMPHOCYTES # (AUTO) 1.8 (1.0-3.2); MEAN CORPUSCULAR HEMOGLOBIN 28.2 pg (28-32); MEAN CORPUSCULAR HGB CONC 31.2 g/dL (31-35); MEAN CORPUSCULAR VOLUME 90.3 fL (81-99); MONOCYTES # (AUTO) 0.5 (0.2-0.8); MONOCYTES % 6.3 % (4.4-11.3); NEUTROPHILS # (AUTO) 6.2 (2.1-6.9); NEUTROPHILS % 72.1 % (38.7-80.0); PLATELET COUNT 132 x10e3/uL (140-360); RED BLOOD COUNT 3.73 x10e6/uL (4.3-5.7); RED CELL DISTRIBUTION WIDTH 13.2 % (11.7-14.4)
[2019-05-08 05:44] LABS: ALBUMIN 2.6 g/dL (3.5-5.0); ALBUMIN/GLOBULIN RATIO 0.8 (0.8-2.0); ANION GAP 15.6 mmol/L (8-16); CALCIUM 8.6 mg/dL (8.4-10.2); CREATININE, SERUM 2.57 mg/dL (0.72-1.25); POTASSIUM 4.6 mmol/L (3.5-5.1)
[2019-05-08] MEDS: NIFEDIPINE CR 30 MG TAB PO SCH ×2 (06:00→17:48)
[2019-05-08] MEDS: INSULIN REGULAR, HUMAN 100 UNIT/1 ML 3ML VIAL SQ SCH ×4 (08:17→21:00)
[2019-05-08] MEDS: FAMOTIDINE 20 MG/2 ML VIAL IV SCH ×2 (08:18→21:04)
[2019-05-08] MEDS: MYCOPHENOLATE SODIUM 360 MG PO SCH ×2 (08:19→21:04)
[2019-05-08] MEDS: NEORAL 25 MG PO SCH ×2 (08:20→17:48)
[2019-05-08] MEDS: SODIUM BICARBONATE 650 MG TAB PO SCH ×3 (08:21→21:04)
[2019-05-08] MEDS: OSELTAMIVIR PHOSPHATE 75 MG CAP PO SCH (08:21)
[2019-05-08] MEDS: CHOLECALCIFEROL 1,000 UNIT TAB PO SCH (08:21)
[2019-05-08] MEDS: CEFTRIAXONE SOD 1 GM/NS 50 ML 50 ML IV SCH (13:05)
--- NOTE | 2019-05-08 14:45 | NUR ---
Transfer to room 202. Report called to Zaria RN included pt uses bedside commode and droplet isolation for flu. All personal items transfer with pt. notified of new location. No complications noted.
--- NOTE | 2019-05-08 15:35 | NUR ---
t alert resp even and unlabored, pt oriented to room and call light.
--- NOTE | 2019-05-08 15:50 | Progress Note ---
DATE: SUBJECTIVE: Feeling okay. Denies any swelling. Right foot still in bandage. OBJECTIVE: VITAL SIGNS: Blood pressure 133/56, pulse 71, temperature 98.4. CHEST: Clear. EXTREMITIES: No definite edema. ABDOMEN: Benign. Graft is nontender. LABORATORY DATA: Hemoglobin is 10.5. Creatinine is down to 2.57, apparently recent baseline is around 1.8 mg%. BUN is still 89. Serum CO2 is low at 18. ASSESSMENT: 1. Acute kidney injury, presumed acute tubular necrosis from infection. 2. Long-term immunosuppression (renal transplant in 2005). 3. Metabolic acidosis, multifactorial including calcium urine inhibitor. PLAN: 1. Increase p.o. fluid intake. 2. Increase the p.o. bicarbonate. 3. No emergent need for dialysis. We will follow along. MD CRISSY ReynosoK/MODL /[id number]
--- NOTE | 2019-05-08 18:57 | Progress Note ---
DATE: SUBJECTIVE: Mr. Gordon is feeling better. His breathing is better. Overall doing much better. LABORATORY DATA: Blood cultures remain negative. His white count came down to 8.54. When he first came, it was 15.7. His sodium 135, potassium 4.6, creatinine 2.57. REVIEW OF SYSTEMS: HEENT: Negative. PULMONARY: Negative. CARDIAC: Negative. PHYSICAL EXAMINATION: GENERAL: He is currently alert, oriented, does not seem to be in acute distress. VITAL SIGNS: Stable, afebrile. HEENT: He is not icteric. NECK: Supple. CHEST: Clear. HEART: S1, S2. No S3, S4, or murmur. ABDOMEN: Soft. Bowel sounds present. No tenderness. EXTREMITIES: No edema. SKIN: No rash. IMPRESSION: 1. Sepsis present on admission, resolved. 2. Flu present on admission. 3. Superimposed bacterial pneumonia. 4. Immunocompromised patient. The patient is status post renal transplant. To finish Tamiflu, probably extend him to 10 days since there is improvement and immune-compromised. 5. Superimposed bacterial pneumonia, on Rocephin, doing well. 6. Chronic kidney disease. 7. Status post renal transplant. 8. We will follow. MD LUPE Piedra/JESENIA /[id number]
--- NOTE | 2019-05-08 19:25 | NUR ---
report given to oncoming nurse. pt stable at this time.
[2019-05-09] VITALS (8 sets, daily range): BP systolic 115–154; BP diastolic 57–67
[2019-05-09] MEDS: ACETAMINOPHEN 325 MG TAB PO PRN ×2 (01:07→23:12)
[2019-05-09] MEDS: NIFEDIPINE CR 30 MG TAB PO SCH ×2 (05:45→17:13)
[2019-05-09 06:02] LABS: ANION GAP 16.6 mmol/L (8-16); CALCIUM 8.5 mg/dL (8.4-10.2); CREATININE, SERUM 2.66 mg/dL (0.72-1.25); MAGNESIUM 2.2 MG/DL (1.3-2.1); POTASSIUM 4.6 mmol/L (3.5-5.1)
--- NOTE | 2019-05-09 07:08 | NUR ---
Pt alert resp even and unlabored at this time, no distress noted pt able to make needs known, call light in reach.
[2019-05-09] MEDS: MYCOPHENOLATE SODIUM 360 MG PO SCH ×2 (09:24→22:12)
[2019-05-09] MEDS: NEORAL 25 MG PO SCH ×2 (09:24→17:00)
[2019-05-09] MEDS: FAMOTIDINE 20 MG/2 ML VIAL IV SCH ×2 (09:24→22:12)
[2019-05-09] MEDS: OSELTAMIVIR PHOSPHATE 75 MG CAP PO SCH (09:24)
[2019-05-09] MEDS: SODIUM BICARBONATE 650 MG TAB PO SCH ×3 (09:24→22:12)
[2019-05-09] MEDS: CHOLECALCIFEROL 1,000 UNIT TAB PO SCH (09:24)
[2019-05-09] MEDS: INSULIN REGULAR, HUMAN 100 UNIT/1 ML 3ML VIAL SQ SCH ×4 (09:26→20:17)
[2019-05-09] MEDS: ONDANSETRON HCL INJ 2MG/ML 2ML 2 MG/ML VIAL IV PRN ×3 (10:48→22:13)
[2019-05-09] MEDS: MORPHINE SULFATE 2 MG/ML SYR 1ML IV PRN ×2 (10:48→18:36)
--- NOTE | 2019-05-09 11:34 | Progress Note ---
DATE: Pulmonary Critical Care Progress Note SUBJECTIVE: The patient reports some increased dyspnea and congestion. He has some discomfort on the side of his chest. PHYSICAL EXAMINATION: VITAL SIGNS: The patient is afebrile. The blood pressure is 131/58, saturation is 95%. HEENT: Shows no facial swelling or erythema. CARDIAC: Reveals a regular rate and rhythm with normal S1 and S2. LUNGS: Auscultation of lungs reveals rhonchorous breath sounds bilaterally. There is no wheezing. ABDOMEN: Soft, nontender. There is no rebound or guarding. EXTREMITIES: Show no leg edema or calf tenderness. There is no cyanosis or clubbing. SKIN: Shows no rashes. IMPRESSION: 1. Influenza with superimposed pneumonia. 2. Acute on chronic renal failure. 3. Diabetic ketoacidosis. 4. Hypertension. 5. Anemia secondary to chronic blood loss. PLAN: 1. Repeat PA and lateral chest x-ray. 2. Continue Tamiflu and Rocephin. 3. Continue oxygen as needed. 4. Continue to monitor electrolytes and renal function. MD DAYSI Pino/MODL /[id number]
[2019-05-09] MEDS ORDERED: SODIUM CHLORIDE 0.9% 250ML 250 ML ONE (12:40)
[2019-05-09] MEDS: CEFTRIAXONE SOD 1 GM/NS 50 ML 50 ML IV SCH (13:00)
--- NOTE | 2019-05-09 13:47 | Diagnostic Imaging Report ---
EXAMINATION: CHEST 2 VIEWS INDICATION: Influenza, dyspnea. COMPARISON: Chest radiograph 05/07/2019. FINDINGS: TUBES and LINES: None. LUNGS: Lungs are moderately inflated. Interval development of multifocal patchy opacities bilaterally. There are bilateral interstitial opacities. PLEURA: No pleural effusion or pneumothorax. HEART AND MEDIASTINUM: The cardiomediastinal silhouette is unremarkable. BONES AND SOFT TISSUES: No acute osseous abnormality. Healed fracture deformities of the posterior right fourth and fifth ribs. UPPER ABDOMEN: No free air under the diaphragm. IMPRESSION: Interval development of multifocal patchy and interstitial opacities, which may reflect multifocal pneumonia and/or pulmonary edema. Signed by: Dr. Leann Dinero MD on 05/09/2019 1:43 PM
--- NOTE | 2019-05-09 19:14 | NUR ---
report given to oncoming nurse. pt stable.
--- NOTE | 2019-05-09 21:30 | NUR ---
FAMILY CONCERNED ABOUT PATIENT HASN'T BEEN EATING MUCH AND FEELING TIRED. PATIENT'S VITAL SIGN STABLE AT THIS TIME. SPOKE TO DR YOUNGBLOOD, NO ORDER RECEIVE AT THIS TIME. MD SAID HE WOULD SEE THE PATIENT TOMORROW
[2019-05-10] VITALS (13 sets, daily range): BP systolic 88–128; BP diastolic 47–78
[2019-05-10] MEDS: ONDANSETRON HCL INJ 2MG/ML 2ML 2 MG/ML VIAL IV PRN (04:00)
[2019-05-10 05:26] LABS: BASOPHILS % 0.1 % (0.0-1.0); HEMATOCRIT 33.2 % (38.2-49.6); HEMOGLOBIN 10.1 g/dL (14.0-18.0); LYMPHOCYTES # (AUTO) 0.4 (1.0-3.2); LYMPHOCYTES % 3.3 % (18.0-39.1); MEAN CORPUSCULAR HEMOGLOBIN 27.6 pg (28-32); MEAN CORPUSCULAR HGB CONC 30.4 g/dL (31-35); MEAN CORPUSCULAR VOLUME 90.7 fL (81-99); MONOCYTES # (AUTO) 0.7 (0.2-0.8); MONOCYTES % 5.6 % (4.4-11.3); NEUTROPHILS # (AUTO) 10.6 (2.1-6.9); NEUTROPHILS % 90.4 % (38.7-80.0); PLATELET COUNT 144 x10e3/uL (140-360); RED BLOOD COUNT 3.66 x10e6/uL (4.3-5.7); RED CELL DISTRIBUTION WIDTH 12.9 % (11.7-14.4)
[2019-05-10] MEDS: NIFEDIPINE CR 30 MG TAB PO SCH (06:07)
--- NOTE | 2019-05-10 07:27 | NUR ---
turning lathe tender nurse reported patient c/o nausea and vomiting all night unrelieved by Zofran. She also reported lab called with critical results of high potassium and elevated glucose, she asked lab to repeat. Upon rounding on the patient after receiving report patient is c/o of feeling "very weak" "thirsty" and in general appears uncomfortable. Bedside glucose 500. Called Dr. Benoit and left a voicemail. Sliding scale insulin was administered as ordered. Called lab and asked to post labs that were called critical to night nurse.
[2019-05-10 07:39] LABS: ALBUMIN 2.7 g/dL (3.5-5.0); ALBUMIN/GLOBULIN RATIO 0.7 (0.8-2.0); ANION GAP 31.1 mmol/L (8-16); CALCIUM 8.9 mg/dL (8.4-10.2); CREATININE, SERUM 4.06 mg/dL (0.72-1.25)
[2019-05-10 07:45] LABS: POTASSIUM 6.1 mmol/L (3.5-5.1)
--- NOTE | 2019-05-10 07:55 | NUR ---
Dr. Gonzalez notified of patient's critical labs and glucose level. New orders received, along with orders to transfer to ICU on insulin drip. Dr. Jessika Melo, critical care consult, was also notified of labs and orders received to transfer to ICU.
[2019-05-10] MEDS ORDERED: DEXTROSE 50% SYRINGE 50 ML IV PRN ×3 (08:00→13:45)
[2019-05-10] MEDS: INSULIN REGULAR, HUMAN 100 UNIT/1 ML 3ML VIAL SQ SCH (08:00)
[2019-05-10] MEDS ORDERED: SODIUM CHLORIDE 0.9% 1000ML 1,000 ML ONE (08:14)
[2019-05-10] MEDS ORDERED: DEXTROSE 50% SYRINGE 50 ML IV ONE ×2 (08:25→08:45)
[2019-05-10] MEDS ORDERED: PROMETHAZINE 12.5MG/ NACL 0.9% 12.5 MG/50 ML BAG IV PRN (08:30)
[2019-05-10] MEDS ORDERED: ACETAMINOPHEN 1000 MG/100 ML IV PRN (08:30)
[2019-05-10] MEDS ORDERED: SODIUM CHLORIDE 0.9% 500ML 500 ML IV ONE (08:30)
[2019-05-10] MEDS: SODIUM CHLORIDE 0.9% 1000ML 1,000 ML IV SCH ×2 (08:30→16:30)
[2019-05-10] MEDS ORDERED: LORAZEPAM INJ 2 MG/ML VIAL IV PRN (08:30)
[2019-05-10] MEDS ORDERED: INSULIN REGULAR, HUMAN 100 UNIT/1 ML 3ML VIAL IV ONE (08:35)
--- NOTE | 2019-05-10 08:58 | Progress Note ---
DATE: Pulmonary Critical Care Progress Note SUBJECTIVE: The patient complains of worsening malaise. He has nausea. He has not vomited yet. He does not complain of fevers. This morning, his bicarbonate was down to 8 and his creatinine was increased to 4.06. His anion gap was 25. He received additional fluids and IV insulin through Nephrology. PHYSICAL EXAMINATION: VITAL SIGNS: The blood pressure is 128/63 and the pulse is 66. The respiratory rate is 18, and the saturation is 96%. HEENT: Shows no facial swelling or erythema. CARDIAC: Reveals regular rate and rhythm with normal S1, S2. LUNGS: Auscultation of lungs reveals crackles at the bases. There is no wheezing. ABDOMEN: Soft, nontender. There is no rebound or guarding. EXTREMITIES: Show no leg edema or calf tenderness. There is no cyanosis or clubbing. SKIN: Shows no rashes. LABORATORY DATA: Sodium is 129, potassium is 6.1. The bicarbonate is 8 and the chloride is 96. The BUN is 107 and the creatinine is 4.06. Blood sugar is 480. Albumin is 2.7. White blood cell count is 11.7 and hemoglobin is 10.1. The platelet count is 144. RADIOGRAPHIC DATA: Chest x-ray from yesterday evening shows interval development of patchy opacities. IMPRESSION: 1. Recurrent diabetic ketoacidosis. 2. Influenza with superimposed pneumonia. 3. Iprlk-ca-czhhxgh renal failure. 4. Hyperkalemia. 5. Hypertension. PLAN: 1. The patient will receive IV fluids. 2. The patient has received IV insulin 10 units and will be started on an insulin drip. 3. Transfer to intensive care unit. 4. Continue Zosyn for now. Discus additional antibiotics with Infectious Disease. 5. Case discussed with the patient, nursing staff, and Dr. Benoit. 6. Greater than 45 minutes in direct critical care time. Chip Melo MD [facility]/JESENIA /[id number]
[2019-05-10] MEDS ORDERED: INSULIN REGULAR, HUMAN 3ML VL 100 UNIT in SODIUM CHLORIDE 0.9% 100 ML 99 ML IV SCH ×2 (09:00)
[2019-05-10] MEDS: NEORAL 25 MG PO SCH ×3 (09:00→15:49)
[2019-05-10] MEDS: SODIUM BICARBONATE 650 MG TAB PO SCH ×2 (09:00→15:47)
--- NOTE | 2019-05-10 09:26 | NUR ---
Patient was transferred to ICU and bedside report was given to receiving nurse.
[2019-05-10] MEDS ORDERED: INSULIN REGULAR, HUMAN 3ML VL 300 UNIT in SODIUM CHLORIDE 0.45% 100 ML 300 ML IV SCH ×2 (09:59)
[2019-05-10] MEDS ORDERED: FUROSEMIDE INJ 10 MG/ML 4 ML VIAL ONE (09:59)
--- NOTE | 2019-05-10 10:44 | Progress Note ---
DATE: 05/10/2019 SUBJECTIVE: Feeling poorly. Meanwhile, chemistries have markedly worsened. Appears to be back in DKA with a potassium of 6.1, creatinine now up to 4.0, had been appeared to be improving from 3.57mg % to 2.6 mg% range up until yesterday. Serum CO2 is depressed, consistent with the above. Glucose is 480. He has been moved to the ICU. He appears to be quite restless and BiPAP will be started. I am really unable to get much of a history from him as he appears to be somewhat confused. OBJECTIVE: VITAL SIGNS: Temperature 97.3, pulse 86, blood pressure 97/47. CHEST: With faint crackles. b/l sounds equal though EXTREMITIES: 1+ edema. HEENT: Face appears swollen. CARDIAC: Normal heart tones. Rhythm sounds regular. ABDOMEN: Soft at this time. LABORATORY DATA: Sodium is 129, K 6.1, serum CO2 of 8, creatinine 4, BUN 107. ASSESSMENT: Acute kidney injury-likely ATN DKA hyperkalemia consider drug reaction Fluid overload Had been on Tamiflu, that dr vanegas will stop PLAN: 1. He has had a dose of insulin /dextrose. He will be started on insulin drip for DKA, which should help the potassium levels 2. One dose of IV Lasix. 3. Also discussed care with the transplant center given that his transplant appears to be failing and he will need a higher level of care. Favor moving him to [facility] at the [facility]. We will put in a request for case management to [facility]. In the meantime, an x-ray and blood cultures have been done and are pending. check urine eosinophils, txp u/s dka protocol will allow us to f,u K levels closely Avoid sedative drugs. After discussing with Dr. Vanegas, we will hold off on giving him any more of the Tamiflu in case this is a drug reaction. complex patient MD VITALY Reynoso/JESENIA /[id number]
[2019-05-10] MEDS ORDERED: SODIUM CHLORIDE 0.9% 250ML 250 ML ONE (10:53)
[2019-05-10] MEDS: FAMOTIDINE 20 MG/2 ML VIAL IV SCH (11:00)
[2019-05-10] MEDS: PIPERACILLIN/TAZO 2.25 GM 50 ML IV SCH ×2 (11:00→15:47)
--- NOTE | 2019-05-10 11:09 | Progress Note ---
DATE: SUBJECTIVE: Mr. Gordon is currently in the Intensive Care Unit, alert, but agitated and confused, but there are no specific complaints. The patient was moved overnight to the ICU for altered mental status. The patient comes here with sepsis, influenza pneumonia, now with worsening kidney function. Discussed with Renal. Apparently, the transplant team would like him to move to [facility]. Family at the bedside. The patient seems to be a little better since this morning. REVIEW OF SYSTEMS: Otherwise is confused. PHYSICAL EXAMINATION: GENERAL: He is currently alert, confused. VITAL SIGNS: Stable. No fever. HEENT: He is not icteric. NECK: Supple. CHEST: Clear. HEART: S1, S2. No murmurs. ABDOMEN: Soft. Bowel sounds present. No tenderness. EXTREMITIES: No edema. IMPRESSION AND PLAN: 1. Encephalopathy, altered mental status, probably metabolic, could be medication. Doubt worsening infection. There is no fever, clinically seems to be stable. We will hold off Tamiflu. Hold off any sedation. 2. Influenza present on admission. We will discontinue Tamiflu. The patient will be here, day #4. 3. Acute kidney injury on chronic kidney disease. The patient had renal transplant. Plan for him to go [facility]. Lasix has been given. 4. Pulmonary edema, concerned about fluid overload. We will give Lasix. We will put on BiPAP. Discussed with medical team. MD LUPE Piedra/JESENIA /[id number]
--- NOTE | 2019-05-10 11:33 | Diagnostic Imaging Report ---
EXAMINATION: CHEST SINGLE (PORTABLE) INDICATION: Shortness of breath COMPARISON: Multiple prior chest radiograph, most recently 05/09/2019 FINDINGS: LINES/TUBES:None LUNGS:The lungs are moderately inflated. Increasing mild focal patchy opacities left greater than right. PLEURA:No pleural effusion or pneumothorax. MEDIASTINUM:The cardiomediastinal silhouette appears unchanged in size and shape. BONES/SOFT TISSUES:No acute osseous injury. ABDOMEN:No free air under the diaphragm. IMPRESSION: Increasing multifocal bilateral consolidative opacities, left greater than right, concerning for multifocal pneumonia. Airspace edema is considered less likely. Signed by: Jak Tavarez MD on 05/10/2019 11:30 AM
--- NOTE | 2019-05-10 12:41 | NUR ---
ORDERS TO TRANSFER PT TO [facility] FOR CONTINUITY OF CARE (RENAL TRANSPLANT TEAM THERE) TRANSFER INITIATED AND MOT INITIATED BY [facility] TIA CHOICE LETTER SIGNED BY PT'S AT BEDSIDE I SECURED SIGNATURE'S FROM ON MOT ICU [facility] AWARE OF PENDING TRANSFER AND ASKED THAT I PLACE MOT ON TOP OF CHART AT THIS TIME MOT PLACED ON FRONT OF CHART REQUESTED
[2019-05-10 13:05] LABS: CALCIUM 8.6 mg/dL (8.4-10.2); CREATININE, SERUM 4.83 mg/dL (0.72-1.25); POTASSIUM 5.7 mmol/L (3.5-5.1)
[2019-05-10 13:06] LABS: ANION GAP 30.7 mmol/L (8-16)
--- NOTE | 2019-05-10 13:26 | Progress Note ---
DATE: 05/10/2019 SUBJECTIVE: The patient is now in ICU, just discussed with patient's [employer]. Discussed with Dr. Gonzalez. Transferring the patient to [facility] for specifically continue with care, but also because of the patient's right kidney transplant back in 2005. The patient has metabolic acidosis from DKA. He has very labile diabetes on insulin treatment. The patient's blood sugar this morning was 480. His potassium was 6.1, BUN and creatinine elevated at 107 and 4.06 respectively. The patient has increase in nausea and vomiting early this morning. The patient's vital signs remain stable. He seemed dry. Bolus of IV fluid was given and the patient is now in the ICU on insulin drip. The patient seemed to be more stable. Lasix was given for possible fluid overload. Chest x-ray showed increase in infiltrate. Dr. Mondragon has seen the patient. Progress note indicated that the patient may not have worsening infection, but possible worsening of renal failure from DKA. The patient was on day #4 influenza treatment with Tamiflu. Tamiflu will be on hold for now in case of allergic reaction. The patient did receive IV Lasix. He is on BiPAP more comfortable. Repeating BMP and chemistry panel ordered. Discussed with the patient's accepting physician at [facility] ICU. The patient has been accepted. The patient will be transferred once all the arrangement is made. The patient is stable in ICU at this time. MD KODI Lee/JESENIA /[id number]
[2019-05-10] MEDS ORDERED: INSULIN REGULAR, HUMAN 3ML VL 100 UNIT in SODIUM CHLORIDE 0.45% 100 ML 100 ML IV SCH ×2 (14:00)
[2019-05-10 14:48] LABS: FREE T4 (FREE THYROXINE) 0.91 ng/dL (0.8-1.8); THYROID STIMULATING HORMONE 0.438 uIU/mL (0.350-4.940)
--- NOTE | 2019-05-10 15:05 | Diagnostic Imaging Report ---
EXAM: Renal Ultrasound INDICATION: ^arf, please evaluate the transplant kidney ^[id number] ^[id number] COMPARISON: None TECHNIQUE: Transverse and longitudinal images of the kidneys and bladder were obtained. FINDINGS: Right Kidney: Length: 12.7 cm Appearance: Normal echogenicity. Collecting system: No hydronephrosis Stones: None Cyst/Mass: None Left Kidney: Length: 8.0 cm Appearance: Increased echogenicity. Collecting system: No hydronephrosis Stones: None Cyst/Mass: None Bladder: Distended urine focal bladder. No mass or calculi. Ureteral jets not visualized. Volume estimate of 1591cc. IMPRESSION: No hydronephrosis. Unremarkable right transplant kidney. Increased parenchymal echogenicity of the left kidney, consistent with medical renal disease. Signed by: Jak Tavarez MD on 05/10/2019 3:02 PM
--- NOTE | 2019-05-10 15:13 | NUR ---
WOUND CARE CONSULT 53 YO MALE DIABETIC PATIENT POST GRAFT PLACEMENT TO RIGHT FOOT PATIENT FOLLOW UP FOR OUTER DRESSING CHANGE TO DIABETIC ULCERATIONS THAT HAD THERASKIN GRAFT PLACEMENT PRIOR TO HOSPITALIZATION [facility] OUTPATIENT WOUND CARE CONTACTED FOR WOUND CARE INSTRUCTION FOR GRAFT FOLLOWS Friday05-10-2019 COVER RT FOOT GRAFT AREAS WITH SILVER ALGINATE WRAP WITH KERLIX SECURE WITH LIGHT COBAN WRAP NEXT DRESSING CHANGE DUE Friday06-13-2019 DISCONTINUE SILVER ALGINATE DRESSING START COLLAGEN IE PURACOL OR FIBRACOL COVER WITH 4X4 WRAP WITH KERLIX SECURE WITH LIGHT COBAN Addendum: 05/10/19 at 1528 by Siddhartha Acevedo RN Amended: Links added.
[2019-05-10] MEDS: MYCOPHENOLATE SODIUM 360 MG PO SCH (15:47)
[2019-05-10] MEDS ORDERED: MYCOPHENOLATE SODIUM 360 MG PO SCH (16:30)
[2019-05-10 16:31] LABS: ABG HCO3 14 mmol/L (23-28); ABG PCO2 27 mmHg (41-51); ABG PH 7.31 (7.31-7.41); ABG PO2 80 mmHg (80-105)
--- NOTE | 2019-05-10 18:20 | NUR ---
spoke with dr. flowers with patient plan of care. give ns @125ml for total 500ml. notified MD with magnesium result of 2.5 and 10beat run v-tach at 1645. no Urine output today. will continue to monitor
--- NOTE | 2019-05-10 19:28 | NUR ---
mini shifter nsg report given to Migdalia Capps
--- NOTE | 2019-05-10 19:28 | NUR ---
nursing report called to Demetrius MACIAS to [id number] bed 3
--- NOTE | 2019-05-10 20:02 | NUR ---
patient home antirejection medications(2) given back to family(sister) prior to transfer to [facility]
--- NOTE | 2019-05-10 21:53 | Consultation ---
DATE OF CONSULTATION: 05/10/2019 Endocrine Consultation This is a patient of Dr. Benoit. Thank you very much for referring this patient. HISTORY OF PRESENT ILLNESS: This is a 53-year-old gentleman, who is referred to me for evaluation of uncontrolled diabetes mellitus and diabetic ketoacidosis. The patient reportedly is a known case of type 1 diabetes mellitus since early age. He is on insulin 20 units of Lantus at bedtime and 8-10 of Humalog with each meal. The patient is also status post kidney transplantation, which was done 13 years back. At this time, the patient was admitted to the hospital with sepsis, uncontrolled diabetes, and left foot ulcer. This morning, the patient was having shortness of breath. On further evaluation, his blood sugar was found to be 713. His anion gap is 30.7 and his BUN and creatinine are 112 and 4.83. On physical examination, the patient also is legally blind on the left eye. PAST MEDICAL HISTORY: He has a history of coronary artery disease and multiple other comorbidities associated with long-term diabetes mellitus. PHYSICAL EXAMINATION: GENERAL: Today, the patient is alert, awake, little bit apprehensive. He is on BiPAP at this time. VITAL SIGNS: His heart rate is around 100, blood pressure is 130/70 mmHg. HEENT: Essentially unremarkable. Thyroid is palpable. Clinically, he is near euthyroid. CHEST: Bilateral vesicular breathing. Bilateral bronchospasm and basilar rales. CARDIOVASCULAR: First and second heart sounds. There is no 3rd or 4th heart sounds. There is ejection systolic murmur grade 2/6. EXTREMITIES: The patient has an ulcer of the right foot. He has also lost two toes on the right foot. CLINICAL IMPRESSION: Diabetes mellitus type 1, uncontrolled with complications, diabetic ketoacidosis, status post kidney transplant, pneumonia, chronic renal failure, acute on chronic sepsis, pulmonary edema, coronary artery disease, and foot ulcer. PLAN: At this time, the patient has been started on insulin drip, IV fluids, monitor his blood sugars. He also needs a renal evaluation. Thanks again for referring this patient. I will be following this patient with you. MD DANA Fairchild/JESENIA /[id number]
== END 2019-05-10 19:46 | disposition short-term general hospital (02) | DRG 871 ==
LOC: ER 16:26 → ERHOLD 21:20 → ICU 05-07 00:30 → MED/SURG2 05-08 15:42 → ICU 05-10 09:24
PROVIDERS: ADMIT Internal Medicine; ATTEND Internal Medicine
PROC: 5A09357 Assistance with Respiratory Ventilation, Less than 24 Consecutive Hours, Continuous Positive Airway Pressure (ICD-10-PCS; principal; 2019-05-10)
DX: A41.9 Sepsis, unspecified organism (principal); E10.10 Type 1 diabetes mellitus with ketoacidosis without coma; N17.0 Acute kidney failure with tubular necrosis; G93.41 Metabolic encephalopathy; J10.08 Influenza due to other identified influenza virus with other specified pneumonia; J18.8 Other pneumonia, unspecified organism; N39.0 Urinary tract infection, site not specified; J81.1 Chronic pulmonary edema; T86.11 Kidney transplant rejection; T86.19 Other complication of kidney transplant; I47.2 Ventricular tachycardia; E86.0 Dehydration; N25.89 Other disorders resulting from impaired renal tubular function; D50.0 Iron deficiency anemia secondary to blood loss (chronic); E87.5 Hyperkalemia; E10.621 Type 1 diabetes mellitus with foot ulcer; E10.51 Type 1 diabetes mellitus with diabetic peripheral angiopathy without gangrene; E10.319 Type 1 diabetes mellitus with unspecified diabetic retinopathy without macular edema; E10.40 Type 1 diabetes mellitus with diabetic neuropathy, unspecified; L97.519 Non-pressure chronic ulcer of other part of right foot with unspecified severity; H54.40 Blindness, one eye, unspecified eye; I87.8 Other specified disorders of veins; E10.59 Type 1 diabetes mellitus with other circulatory complications; E10.22 Type 1 diabetes mellitus with diabetic chronic kidney disease; I12.9 Hypertensive chronic kidney disease with stage 1 through stage 4 chronic kidney disease, or unspecified chronic kidney disease; N18.9 Chronic kidney disease, unspecified; Z79.4 Long term (current) use of insulin; Z79.02 Long term (current) use of antithrombotics/antiplatelets; Z79.899 Other long term (current) drug therapy; Z79.52 Long term (current) use of systemic steroids; Z89.421 Acquired absence of other right toe(s)
CPT/HCPCS: 36415; 36600; 71045; 71046; 76770; 80048; 80053; 80061; 80158; 81001; 82550; 82553; 82805; 82947; 82948; 83036; 83518; 83605; 83735; 84100; 84439; 84443; 84484; 85025; 85610; 85730; 87040; 87070; 87086; 87400; 94660; 96372; 99284; J0696; J1817; J1940; J2270; J2405; J2543; J2550; J3370; J7030; J7050; J7515; J7799

== ENCOUNTER 2021-06-01 18:54 | Emergency (ER) | payer MEDICARE ==
[~2021-06-01] VITALS: Ht 167.6 cm; Wt 68.5 kg
== END 2021-06-01 21:30 | disposition home or self-care (01) ==
LOC: ER 18:59
DX: Z46.6 Encounter for fitting and adjustment of urinary device (principal); N39.0 Urinary tract infection, site not specified; N31.9 Neuromuscular dysfunction of bladder, unspecified; I10 Essential (primary) hypertension; E11.9 Type 2 diabetes mellitus without complications; Z94.0 Kidney transplant status; Z86.73 Personal history of transient ischemic attack (TIA), and cerebral infarction without residual deficits
CPT/HCPCS: 51700; 99282

== ENCOUNTER 2021-11-27 00:37 | Inpatient (IN) | payer MEDICARE ==
[~2021-11-27] VITALS: Ht 167.6 cm; Wt 68.5 kg
[2021-11-27] MEDS ORDERED: DIATRIZOATE MEGL/DIATRIZOA SOD 30 ML BTL PO ONE ×2 (01:58→14:22)
[2021-11-27] MEDS ORDERED: ONDANSETRON HCL 4 MG ORAL DISINTEGRATING TAB ONE (02:44)
[2021-11-27 03:00] LABS: BASOPHILS % 0.2 % (0.0-1.0); EOSINOPHILS # (AUTO) 0.1 (0.0-0.4); EOSINOPHILS % 0.4 % (0.0-6.0); HEMATOCRIT 42.2 % (38.2-49.6); HEMOGLOBIN 12.2 g/dL (14.0-18.0); LYMPHOCYTES # (AUTO) 0.9 (1.0-3.2); LYMPHOCYTES % 6.3 % (18.0-39.1); MEAN CORPUSCULAR HEMOGLOBIN 27.5 pg (28-32); MEAN CORPUSCULAR HGB CONC 28.9 g/dL (31-35); MEAN CORPUSCULAR VOLUME 95.3 fL (81-99); MONOCYTES # (AUTO) 0.9 (0.2-0.8); MONOCYTES % 5.9 % (4.4-11.3); NEUTROPHILS # (AUTO) 12.7 (2.1-6.9); NEUTROPHILS % 86.9 % (38.7-80.0); PLATELET COUNT 172 x10e3/uL (140-360); RED BLOOD COUNT 4.43 x10e6/uL (4.3-5.7); RED CELL DISTRIBUTION WIDTH 14.4 % (11.7-14.4)
[2021-11-27 03:19] LABS: ALBUMIN 3.4 g/dL (3.5-5.0); ALBUMIN/GLOBULIN RATIO 0.8 (0.8-2.0); ANION GAP 18.4 mmol/L (8-16); CALCIUM 8.6 mg/dL (8.4-10.2); CREATININE, SERUM 2.61 mg/dL (0.72-1.25); POTASSIUM 4.4 mmol/L (3.5-5.1)
[2021-11-27] MEDS ORDERED: ONDANSETRON HCL INJ 2MG/ML 2ML 2 MG/ML VIAL ONE (04:28)
[2021-11-27] MEDS: ONDANSETRON HCL INJ 2MG/ML 2ML 2 MG/ML VIAL IV PRN ×2 (04:30→16:17)
[2021-11-27] MEDS ORDERED: SODIUM CHLORIDE 0.9% 1000ML 1,000 ML IV SCH ×2 (04:30→09:15)
[2021-11-27] MEDS ORDERED: PROMETHAZINE 12.5MG/ NACL 0.9% 12.5 MG/50 ML BAG IV ONE (04:45)
[2021-11-27] MEDS ORDERED: ACETAMINOPHEN 1000 MG/100 ML IV STA (05:29)
[2021-11-27] MEDS ORDERED: SODIUM CHLORIDE 0.9% 1000ML 1,000 ML IV ONE ×2 (05:45→15:30)
[2021-11-27] MEDS ORDERED: ACETAMINOPHEN 1000 MG/100 ML 100 ML IV ONE (05:47)
[2021-11-27 08:15] LABS: CLARITY,URINE CLOUDY (CLEAR); COLOR,URINE AMBER (YELLOW); KETONES,URINE 1+ (NEGATIVE); LEUKOCYTE ESTERASE ,URINE SMALL (NEGATIVE); NITRITE,URINE NEGATIVE (NEGATIVE); PROTEIN,URINE DIPSTICK >=300 (NEGATIVE); URINE UROBILINOGEN 0.2 mg/dL (0.2 - 1)
[2021-11-27] MEDS ORDERED: LACTULOSE SYRUP 20 GM/30 ML UDC PO ONE (08:30)
[2021-11-27] MEDS ORDERED: LACTULOSE SYRUP 20 GM/30 ML UDC PO PRN (08:30)
[2021-11-27 08:35] LABS: BACTERIA,URINE MANY /HPF; EPITHELIAL CELLS,URINE MODERATE /LPF; RBC,URINE >50 /HPF (0-5); WBC,URINE (MAN) >50 /HPF (0-5)
[2021-11-27] MEDS: MYCOPHENOLATE SODIUM 360 MG PO SCH ×2 (09:00→16:59)
[2021-11-27] MEDS: POLYETHYLENE GLYCOL 3350 17 GM PACK PO SCH ×2 (09:00→16:59)
[2021-11-27] MEDS: SENNA-S TABLET PO SCH ×2 (09:00→16:59)
[2021-11-27] MEDS ORDERED: BISACODYL 5 MG TAB EC PO ONE (09:00)
[2021-11-27] MEDS: CYCLOSPORINE 25 MG CAP PO SCH ×2 (10:06→17:55)
[2021-11-27] MEDS: METOPROLOL TARTRATE 50 MG TAB PO SCH (10:11)
[2021-11-27] MEDS: CHOLECALCIFEROL 1,000 UNIT TAB PO SCH (10:13)
[2021-11-27] MEDS: PREDNISONE 5 MG TAB PO SCH (10:13)
[2021-11-27] MEDS: CLOPIDOGREL BISULFATE 75 MG TAB PO SCH (10:13)
[2021-11-27] MEDS ORDERED: PREDNISONE 10 MG TAB ONE (11:15)
[2021-11-27] MEDS: INSULIN LISPRO 100 UNIT/1 ML 3ML VIAL SQ SCH ×5 (11:30→20:18)
[2021-11-27] MEDS ORDERED: IOPAMIDOL 370 MG/ML 100 ML INFUS..BTL INJ ONE (13:18)
[2021-11-27 14:10] VITALS: BP 138/42
[2021-11-27] MEDS: DEXTROSE 50% SYRINGE 50 ML IV PRN ×2 (15:42→19:31)
[2021-11-27 16:35] VITALS: BP 162/60
[2021-11-27] MEDS: HEPARIN SOD (PORCINE) 5,000 UNIT/ML VIAL SC SCH (17:55)
[2021-11-27 18:08] VITALS: BP 162/60
[2021-11-27] MEDS ORDERED: BUMETANIDE2 MG PO (18:54)
[2021-11-27] MEDS ORDERED: ISOSORBIDE MONO20 MG PO (18:54)
[2021-11-27] MEDS ORDERED: CLONIDINE HCL0.1 MG PO (18:54)
[2021-11-27] MEDS ORDERED: RENAGEL800 MG PO (18:54)
[2021-11-27] MEDS ORDERED: HYTRIN1 M1 PO (18:54)
[2021-11-27] MEDS ORDERED: COREG12.5 MG PO (18:54)
[2021-11-27] MEDS ORDERED: NIFEDIPINE ER30 M1 PO (18:54)
[2021-11-27] MEDS ORDERED: HYDRALAZINE HCL50 MG PO (18:54)
[2021-11-27] MEDS ORDERED: GABAPENTIN100 MG PO (18:54)
[2021-11-27 20:00] VITALS: BP 131/39
[2021-11-27 21:00] VITALS: BP 131/39
[2021-11-27] MEDS: RAMIPRIL 5 MG CAP PO SCH (21:00)
[2021-11-27] MEDS ORDERED: INSULIN GLARGINE 100 UNITS/ML VIAL SQ SCH (21:00)
[2021-11-27] MEDS: PRAVASTATIN 20 MG TAB PO SCH (21:00)
[2021-11-27] MEDS ORDERED: ACETAMINOPHEN 325 MG TAB PO PRN (23:30)
[2021-11-28] VITALS (8 sets, daily range): BP systolic 114–158; BP diastolic 44–70
[2021-11-28] MEDS: ACETAMINOPHEN 325 MG TAB PO PRN (00:49)
[2021-11-28] MEDS ORDERED: ACETAMINOPHEN 325 MG TAB ONE (00:49)
[2021-11-28 06:10] LABS: BASOPHILS % 0.3 % (0.0-1.0); EOSINOPHILS # (AUTO) 0.1 (0.0-0.4); EOSINOPHILS % 1.1 % (0.0-6.0); HEMATOCRIT 38.9 % (38.2-49.6); HEMOGLOBIN 11.3 g/dL (14.0-18.0); LYMPHOCYTES % 8.4 % (18.0-39.1); MEAN CORPUSCULAR HEMOGLOBIN 27.6 pg (28-32); MEAN CORPUSCULAR VOLUME 95.1 fL (81-99); MONOCYTES # (AUTO) 1.2 (0.2-0.8); MONOCYTES % 10.1 % (4.4-11.3); NEUTROPHILS # (AUTO) 9.1 (2.1-6.9); NEUTROPHILS % 79.8 % (38.7-80.0); PLATELET COUNT 153 x10e3/uL (140-360); RED BLOOD COUNT 4.09 x10e6/uL (4.3-5.7); RED CELL DISTRIBUTION WIDTH 14.6 % (11.7-14.4)
[2021-11-28] MEDS: HEPARIN SOD (PORCINE) 5,000 UNIT/ML VIAL SC SCH ×2 (06:19→18:24)
[2021-11-28 06:42] LABS: ANION GAP 14.2 mmol/L (8-16); CALCIUM 7.6 mg/dL (8.4-10.2); CREATININE, SERUM 3.35 mg/dL (0.72-1.25); POTASSIUM 4.2 mmol/L (3.5-5.1)
[2021-11-28 06:43] LABS: MAGNESIUM 1.8 MG/DL (1.3-2.1); PHOSPHORUS 4.3 MG/DL (2.3-4.7)
[2021-11-28 06:49] LABS: THYROID STIMULATING HORMONE 1.079 uIU/mL (0.350-4.940)
[2021-11-28] MEDS: INSULIN LISPRO 100 UNIT/1 ML 3ML VIAL SQ SCH ×4 (07:30→21:15)
[2021-11-28] MEDS ORDERED: SODIUM CHLORIDE 0.9% 1000ML 2,000 ML ONE (08:40)
[2021-11-28] MEDS: POLYETHYLENE GLYCOL 3350 17 GM PACK PO SCH ×2 (09:00→17:00)
[2021-11-28] MEDS: MYCOPHENOLATE SODIUM 360 MG PO SCH ×2 (09:00→17:00)
[2021-11-28] MEDS: METOPROLOL TARTRATE 50 MG TAB PO SCH (09:00)
[2021-11-28] MEDS: SENNA-S TABLET PO SCH ×2 (09:00→17:00)
[2021-11-28] MEDS ORDERED: HEPARIN SOD (PORCINE) 1000 UNIT/ML SDV IV PRN (12:00)
[2021-11-28] MEDS ORDERED: SODIUM CHLORIDE 0.9% 1000ML 2,000 ML IV PRN (12:00)
[2021-11-28] MEDS: CHOLECALCIFEROL 1,000 UNIT TAB PO SCH (17:00)
[2021-11-28] MEDS: CLOPIDOGREL BISULFATE 75 MG TAB PO SCH (17:00)
[2021-11-28] MEDS: PREDNISONE 5 MG TAB PO SCH (17:00)
[2021-11-28] MEDS: CYCLOSPORINE 25 MG CAP PO SCH ×2 (17:01→23:30)
[2021-11-28] MEDS ORDERED: SODIUM CHLORIDE 0.9% 250ML 250 ML ONE (20:10)
[2021-11-28] MEDS: RAMIPRIL 5 MG CAP PO SCH (21:14)
[2021-11-28] MEDS: PRAVASTATIN 20 MG TAB PO SCH (21:15)
[2021-11-29] VITALS (8 sets, daily range): BP systolic 101–158; BP diastolic 41–90
[2021-11-29] MEDS: HEPARIN SOD (PORCINE) 5,000 UNIT/ML VIAL SC SCH ×2 (06:44→17:30)
[2021-11-29] MEDS: INSULIN LISPRO 100 UNIT/1 ML 3ML VIAL SQ SCH ×3 (08:30→22:19)
[2021-11-29] MEDS: SENNA-S TABLET PO SCH (08:40)
[2021-11-29] MEDS: POLYETHYLENE GLYCOL 3350 17 GM PACK PO SCH (08:40)
[2021-11-29] MEDS: MYCOPHENOLATE SODIUM 360 MG PO SCH ×2 (09:00→17:00)
[2021-11-29] MEDS: METOPROLOL TARTRATE 50 MG TAB PO SCH (09:43)
[2021-11-29] MEDS: CLOPIDOGREL BISULFATE 75 MG TAB PO SCH (09:43)
[2021-11-29] MEDS: CYCLOSPORINE 25 MG CAP PO SCH ×2 (09:43→18:33)
[2021-11-29] MEDS: PREDNISONE 5 MG TAB PO SCH (09:43)
[2021-11-29] MEDS: CHOLECALCIFEROL 1,000 UNIT TAB PO SCH (09:43)
[2021-11-29 17:01] LABS: FREE T4 (FREE THYROXINE) 0.76 ng/dL (0.8-1.8); THYROID STIMULATING HORMONE 0.932 uIU/mL (0.350-4.940)
[2021-11-29] MEDS ORDERED: INSULIN GLARGINE 100 UNITS/ML VIAL SQ SCH (21:00)
[2021-11-29] MEDS: PRAVASTATIN 20 MG TAB PO SCH (22:08)
[2021-11-29] MEDS: RAMIPRIL 5 MG CAP PO SCH (22:08)
[2021-11-30] VITALS (7 sets, daily range): BP systolic 151–179; BP diastolic 44–87
[2021-11-30] MEDS: ACETAMINOPHEN 325 MG TAB PO PRN ×2 (03:11→09:16)
[2021-11-30] MEDS: HEPARIN SOD (PORCINE) 5,000 UNIT/ML VIAL SC SCH ×2 (05:51→18:00)
[2021-11-30 07:14] LABS: BASOPHILS % 0.2 % (0.0-1.0); EOSINOPHILS # (AUTO) 0.1 (0.0-0.4); EOSINOPHILS % 0.5 % (0.0-6.0); HEMATOCRIT 37.2 % (38.2-49.6); HEMOGLOBIN 11.2 g/dL (14.0-18.0); LYMPHOCYTES # (AUTO) 0.9 (1.0-3.2); LYMPHOCYTES % 8.6 % (18.0-39.1); MEAN CORPUSCULAR HEMOGLOBIN 27.1 pg (28-32); MEAN CORPUSCULAR HGB CONC 30.1 g/dL (31-35); MEAN CORPUSCULAR VOLUME 90.1 fL (81-99); MONOCYTES # (AUTO) 0.8 (0.2-0.8); MONOCYTES % 7.1 % (4.4-11.3); NEUTROPHILS % 82.9 % (38.7-80.0); PLATELET COUNT 202 x10e3/uL (140-360); RED BLOOD COUNT 4.13 x10e6/uL (4.3-5.7); RED CELL DISTRIBUTION WIDTH 14.6 % (11.7-14.4)
[2021-11-30] MEDS: INSULIN LISPRO 100 UNIT/1 ML 3ML VIAL SQ SCH ×5 (07:30→22:30)
[2021-11-30 07:53] LABS: ANION GAP 16.4 mmol/L (8-16); CALCIUM 7.9 mg/dL (8.4-10.2); CREATININE, SERUM 4.41 mg/dL (0.72-1.25); POTASSIUM 3.4 mmol/L (3.5-5.1)
[2021-11-30] MEDS: CYCLOSPORINE 25 MG CAP PO SCH ×2 (09:00→22:30)
[2021-11-30] MEDS: CLOPIDOGREL BISULFATE 75 MG TAB PO SCH (09:00)
[2021-11-30] MEDS: METOPROLOL TARTRATE 50 MG TAB PO SCH (09:00)
[2021-11-30] MEDS: PREDNISONE 5 MG TAB PO SCH (09:00)
[2021-11-30] MEDS: CHOLECALCIFEROL 1,000 UNIT TAB PO SCH (09:00)
[2021-11-30] MEDS: MYCOPHENOLATE SODIUM 360 MG PO SCH ×2 (09:00→12:45)
[2021-11-30] MEDS ORDERED: NIFEDIPINE CR 30 MG TAB PO ONE (10:15)
[2021-11-30] MEDS: SODIUM CHLORIDE 0.9% 1000ML 1,000 ML IV SCH ×2 (10:15→22:30)
[2021-11-30] MEDS ORDERED: CYCLOSPORINE 25 MG CAP PO SCH (17:00)
[2021-11-30] MEDS ORDERED: INSULIN GLARGINE 100 UNITS/ML VIAL SQ SCH (21:00)
[2021-11-30] MEDS: PRAVASTATIN 20 MG TAB PO SCH (22:30)
[2021-12-01] VITALS: BP 117/47
[2021-12-01 04:00] VITALS: BP 111/45
[2021-12-01 05:36] VITALS: BP 111/45
[2021-12-01] MEDS: SODIUM CHLORIDE 0.9% 1000ML 1,000 ML IV SCH (06:15)
[2021-12-01] MEDS: HEPARIN SOD (PORCINE) 5,000 UNIT/ML VIAL SC SCH (06:30)
[2021-12-01] MEDS: INSULIN LISPRO 100 UNIT/1 ML 3ML VIAL SQ SCH ×4 (07:30→11:30)
[2021-12-01 07:41] VITALS: BP 129/45
[2021-12-01 07:49] VITALS: BP 129/45
[2021-12-01 08:29] LABS: ANION GAP 13.2 mmol/L (8-16); CALCIUM 7.8 mg/dL (8.4-10.2); CREATININE, SERUM 3.37 mg/dL (0.72-1.25); POTASSIUM 3.2 mmol/L (3.5-5.1)
[2021-12-01] MEDS: CYCLOSPORINE 25 MG CAP PO SCH (08:56)
[2021-12-01] MEDS: MYCOPHENOLATE SODIUM 360 MG PO SCH (08:56)
[2021-12-01] MEDS: METOPROLOL TARTRATE 50 MG TAB PO SCH (08:56)
[2021-12-01] MEDS: PREDNISONE 5 MG TAB PO SCH (08:57)
[2021-12-01] MEDS: CHOLECALCIFEROL 1,000 UNIT TAB PO SCH (08:57)
[2021-12-01] MEDS: CLOPIDOGREL BISULFATE 75 MG TAB PO SCH (08:57)
[2021-12-01] MEDS ORDERED: NIFEDIPINE CR 30 MG TAB PO SCH (09:00)
[2021-12-01] MEDS ORDERED: POTASSIUM CHLORIDE 20 MEQ TAB CR PO ONE (09:30)
[2021-12-01 11:28] VITALS: BP 127/59
[2021-12-01] MEDS ORDERED: ONDANSETRON ODT4 MG PO (12:06)
[2021-12-01] MEDS ORDERED: KEFLEX125 MG/5 M PO (12:06)
== END 2021-12-01 14:37 | disposition home or self-care (01) | DRG 698 ==
LOC: ER 00:46 → ERHOLD 04:24 → OBSVTOIN 09:22 → MED/SURG2 14:09
PROVIDERS: ADMIT Internal Medicine; ATTEND Internal Medicine
PROC: 3E03329 Introduction of Other Anti-infective into Peripheral Vein, Percutaneous Approach (ICD-10-PCS; 2021-11-27)
PROC: 5A1D70Z Performance of Urinary Filtration, Intermittent, Less than 6 Hours Per Day (ICD-10-PCS; principal; 2021-11-28)
DX: T83.510A Infection and inflammatory reaction due to cystostomy catheter, initial encounter (principal); A41.9 Sepsis, unspecified organism; N18.6 End stage renal disease; N17.0 Acute kidney failure with tubular necrosis; I12.0 Hypertensive chronic kidney disease with stage 5 chronic kidney disease or end stage renal disease; T86.11 Kidney transplant rejection; N39.0 Urinary tract infection, site not specified; Z99.2 Dependence on renal dialysis; E10.22 Type 1 diabetes mellitus with diabetic chronic kidney disease; E10.65 Type 1 diabetes mellitus with hyperglycemia; B95.1 Streptococcus, group B, as the cause of diseases classified elsewhere; E83.51 Hypocalcemia; R31.29 Other microscopic hematuria; K59.00 Constipation, unspecified; D64.9 Anemia, unspecified; N31.9 Neuromuscular dysfunction of bladder, unspecified; Z20.822 Contact with and (suspected) exposure to COVID-19
CPT/HCPCS: 36415; 71250; 74176; 80048; 80053; 81001; 82948; 83036; 83605; 83735; 84100; 84439; 84443; 84484; 85025; 86704; 86706; 87040; 87086; 87340; 87493; 93970; 94799; 96372; 99251; 99285; J0696; J1644; J2405; J2550; J7030; J7050; J7512; J7515; J7799; Q0162; Q9967

== ENCOUNTER 2022-06-27 11:48 | Inpatient (IN) | payer MEDICARE ==
[~2022-06-27] VITALS: Ht 167.6 cm; Wt 64.4 kg
[~2022-06-27 11:48] MED LIST changes: +AUGMENTIN 500-1 EACH PO; +BUMETANIDE2 MG PO; +CLONIDINE HCL0.1 MG PO; +COREG12.5 MG PO; +GABAPENTIN100 MG PO; +HYDRALAZINE HCL50 MG PO; +HYTRIN1 M1 PO; +ISOSORBIDE MONO20 MG PO; +KEFLEX125 MG/5 M PO; +NIFEDIPINE ER30 M1 PO; +ONDANSETRON ODT4 MG PO; +RENAGEL800 MG PO
[2022-06-27] MEDS ORDERED: ONDANSETRON HCL INJ 2MG/ML 2ML 2 MG/ML VIAL IV ONE (12:17)
[2022-06-27] MEDS ORDERED: FAMOTIDINE 20 MG/2 ML VIAL IV ONE (12:17)
[2022-06-27] MEDS ORDERED: SODIUM CHLORIDE 0.9% 1000ML 500 ML IV STA (12:17)
[2022-06-27] MEDS ORDERED: ACETAMINOPHEN 325 MG TAB PO ONE (12:45)
[2022-06-27 12:57] LABS: HEMATOCRIT 36.9 % (38.2-49.6); HEMOGLOBIN 10.8 g/dL (14.0-18.0); MEAN CORPUSCULAR HEMOGLOBIN 30.9 pg (28-32); MEAN CORPUSCULAR HGB CONC 29.3 g/dL (31-35); MEAN CORPUSCULAR VOLUME 105.4 fL (81-99); RED CELL DISTRIBUTION WIDTH 13.7 % (11.7-14.4)
[2022-06-27 12:58] LABS: BASOPHILS % 0.1 % (0.0-1.0); EOSINOPHILS # (AUTO) 0.2 (0.0-0.4); EOSINOPHILS % 2.1 % (0.0-6.0); LYMPHOCYTES # (AUTO) 0.9 (1.0-3.2); LYMPHOCYTES % 11.3 % (18.0-39.1); MONOCYTES # (AUTO) 0.9 (0.2-0.8); MONOCYTES % 11.3 % (4.4-11.3); NEUTROPHILS # (AUTO) 5.8 (2.1-6.9); NEUTROPHILS % 74.9 % (38.7-80.0); PLATELET COUNT 165 x10e3/uL (140-360)
[2022-06-27] MEDS ORDERED: ACETAMINOPHEN 1000 MG/100 ML IV STA (13:06)
[2022-06-27 13:14] LABS: ALBUMIN 2.9 g/dL (3.5-5.0); ALBUMIN/GLOBULIN RATIO 0.7 (0.8-2.0); ANION GAP 18.6 mmol/L (8-16); CALCIUM 8.4 mg/dL (8.4-10.2); CREATININE, SERUM 3.7 mg/dL (0.72-1.25); POTASSIUM 3.6 mmol/L (3.5-5.1)
[2022-06-27] MEDS ORDERED: SODIUM CHLORIDE 0.9% 500ML 500 ML ONE (13:17)
[2022-06-27 13:21] LABS: CREATINE KINASE MB 0.6 ng/mL (0-5.0)
[2022-06-27] MEDS ORDERED: DIATRIZOATE MEGL/DIATRIZOA SOD 30 ML BTL PO ONE (14:00)
[2022-06-27] MEDS ORDERED: ONDANSETRON HCL INJ 2MG/ML 2ML 2 MG/ML VIAL IV PRN ×2 (14:00→17:30)
[2022-06-27] MEDS ORDERED: SODIUM CHLORIDE FLUSH 10 ML SYR INJ PRN (14:00)
[2022-06-27] MEDS: ACETAMINOPHEN 325 MG TAB PO PRN (16:26)
[2022-06-27 17:23] VITALS: BP 128/103
[2022-06-27 17:26] VITALS: BP 128/103
[2022-06-27] MEDS ORDERED: CLONIDINE HCL 0.1 MG TAB PO PRN (17:30)
[2022-06-27] MEDS ORDERED: DEXTROSE 50% SYRINGE 50 ML IV PRN (17:30)
[2022-06-27] MEDS ORDERED: BUMETANIDE1 MG PO (17:41)
[2022-06-27] MEDS ORDERED: VITAMIN D PO (17:41)
[2022-06-27] MEDS: FAMOTIDINE 20 MG/2 ML VIAL IV SCH (18:01)
[2022-06-27 18:16] VITALS: BP 128/103
[2022-06-27 18:27] LABS: CLARITY,URINE SL CLOUDY (CLEAR); COLOR,URINE YELLOW (YELLOW); KETONES,URINE 1+ (NEGATIVE); LEUKOCYTE ESTERASE ,URINE SMALL (NEGATIVE); NITRITE,URINE NEGATIVE (NEGATIVE); PROTEIN,URINE DIPSTICK >=300 (NEGATIVE); URINE UROBILINOGEN 0.2 mg/dL (0.2 - 1)
[2022-06-27 18:44] LABS: AMORPHOUS SEDIMENT,URINE MODERATE (FEW); BACTERIA,URINE MANY /HPF; RBC,URINE 0-5 /HPF (0-5)
[2022-06-27 18:47] LABS: CREATINE KINASE MB 0.9 ng/mL (0-5.0)
[2022-06-27 20:00] VITALS: BP 107/48
[2022-06-27] MEDS ORDERED: ALPRAZOLAM 0.25 MG TAB PO PRN (20:00)
[2022-06-27] MEDS: SEVELAMER CARBONATE 800 MG TAB PO SCH (20:44)
[2022-06-27] MEDS: INSULIN LISPRO 100 UNIT/1 ML 3ML VIAL SQ SCH (20:46)
[2022-06-27] MEDS: Morphine 2mg Syringe 2 MG/ML SYR IV PRN (22:51)
[2022-06-27] MEDS ORDERED: SODIUM CHLORIDE 0.9% 250ML 250 ML ONE (22:54)
[2022-06-28] VITALS (8 sets, daily range): BP systolic 85–162; BP diastolic 50–67
[2022-06-28] MEDS: ACETAMINOPHEN 325 MG TAB PO PRN ×2 (03:50→20:11)
[2022-06-28 05:00] LABS: BASOPHILS % 0.4 % (0.0-1.0); EOSINOPHILS % 0.2 % (0.0-6.0); HEMATOCRIT 33.6 % (38.2-49.6); HEMOGLOBIN 10.4 g/dL (14.0-18.0); LYMPHOCYTES % 10.2 % (18.0-39.1); MEAN CORPUSCULAR HEMOGLOBIN 30.8 pg (28-32); MEAN CORPUSCULAR VOLUME 99.4 fL (81-99); MONOCYTES # (AUTO) 1.2 (0.2-0.8); MONOCYTES % 12.1 % (4.4-11.3); NEUTROPHILS # (AUTO) 7.2 (2.1-6.9); NEUTROPHILS % 76.4 % (38.7-80.0); PLATELET COUNT 105 x10e3/uL (140-360); RED BLOOD COUNT 3.38 x10e6/uL (4.3-5.7); RED CELL DISTRIBUTION WIDTH 14.1 % (11.7-14.4)
[2022-06-28] MEDS: Morphine 2mg Syringe 2 MG/ML SYR IV PRN (05:11)
[2022-06-28 05:25] LABS: ALBUMIN 2.4 g/dL (3.5-5.0); ALBUMIN/GLOBULIN RATIO 0.7 (0.8-2.0); ANION GAP 17.8 mmol/L (8-16); CALCIUM 7.6 mg/dL (8.4-10.2); CREATININE, SERUM 5.03 mg/dL (0.72-1.25); POTASSIUM 3.8 mmol/L (3.5-5.1)
[2022-06-28 06:02] LABS: CREATINE KINASE MB 0.7 ng/mL (0-5.0)
[2022-06-28] MEDS ORDERED: SODIUM CHLORIDE 0.9% 1000ML 1,000 ML IV ONE (08:00)
[2022-06-28] MEDS ORDERED: METOPROLOL TARTRATE INJ 1 MG/ML VIAL IV PRN (08:15)
[2022-06-28] MEDS ORDERED: ALBUMIN 25% 25GM 100ML 0.25 GM/ML BTL IV ONE (08:30)
[2022-06-28] MEDS ORDERED: NIFEDIPINE CR 30 MG TAB PO SCH (09:00)
[2022-06-28] MEDS ORDERED: CARVEDILOL 12.5 MG TAB PO SCH (09:00)
[2022-06-28] MEDS ORDERED: GABAPENTIN 100 MG CAP PO SCH (09:00)
[2022-06-28] MEDS ORDERED: ISOSORBIDE MONONITRATE 30 MG TAB CR PO SCH (09:00)
[2022-06-28] MEDS: FAMOTIDINE 20 MG/2 ML VIAL IV SCH ×2 (09:11→16:47)
[2022-06-28] MEDS: CYCLOSPORINE 25 MG CAP PO SCH (09:11)
[2022-06-28] MEDS: CHOLECALCIFEROL 1,000 UNIT TAB PO SCH (09:11)
[2022-06-28] MEDS: PREDNISONE 5 MG TAB PO SCH (09:12)
[2022-06-28] MEDS: MIDODRINE HCL 5 MG TABLET PO SCH ×3 (09:12→16:00)
[2022-06-28] MEDS: SEVELAMER CARBONATE 800 MG TAB PO SCH ×3 (09:12→16:48)
[2022-06-28] MEDS: INSULIN LISPRO 100 UNIT/1 ML 3ML VIAL SQ SCH ×4 (09:17→20:12)
[2022-06-28] MEDS ORDERED: SODIUM CHLORIDE 0.9% 1000ML 2,000 ML IV PRN (10:00)
[2022-06-28] MEDS ORDERED: SODIUM CHLORIDE 0.9% 250ML 500 ML IV PRN (10:00)
[2022-06-28] MEDS ORDERED: HEPARIN SOD (PORCINE) 1000 UNIT/ML SDV IV PRN (10:00)
[2022-06-28] MEDS ORDERED: ALBUMIN 25% 12.5GM 0.25 GM/ML BTL IV PRN (10:00)
[2022-06-28] MEDS ORDERED: VANCOMYCIN HCL 125 MG CAPSULE PO SCH (12:00)
[2022-06-28] MEDS ORDERED: METHYLPREDNISOLONE SOD SUCC 40 MG/ML VIAL 1ML IV ONE (12:30)
[2022-06-28 15:01] LABS: BODY FLUID APPEARANCE TURBID; BODY FLUID COLOR RED; BODY FLUID TYPE SYNOVIAL; RBC,BODY FLUID 46000 cells/uL; WBC,BODY FLUID 47495 cells/uL
[2022-06-28 15:41] LABS: LYMPHOCYTES,BODY FLUID 4 %; NEUTROPHILS,BODY FLUID 96 %
[2022-06-28 16:21] LABS: MONO/MACROPHG,BODY FLUID 0 %
[2022-06-28] MEDS ORDERED: SODIUM CHLORIDE 0.9% 250ML 250 ML ONE (16:39)
[2022-06-28 16:51] LABS: CREATINE KINASE MB 4.8 ng/mL (0-5.0)
[2022-06-29] VITALS (9 sets, daily range): BP systolic 119–161; BP diastolic 46–66
[2022-06-29 04:47] LABS: BASOPHILS % 0.2 % (0.0-1.0); HEMATOCRIT 41.7 % (38.2-49.6); HEMOGLOBIN 12.7 g/dL (14.0-18.0); LYMPHOCYTES # (AUTO) 0.5 (1.0-3.2); LYMPHOCYTES % 4.6 % (18.0-39.1); MEAN CORPUSCULAR HEMOGLOBIN 31.3 pg (28-32); MEAN CORPUSCULAR HGB CONC 30.5 g/dL (31-35); MEAN CORPUSCULAR VOLUME 102.7 fL (81-99); MONOCYTES # (AUTO) 0.3 (0.2-0.8); MONOCYTES % 2.7 % (4.4-11.3); NEUTROPHILS # (AUTO) 10.8 (2.1-6.9); NEUTROPHILS % 92.2 % (38.7-80.0); PLATELET COUNT 135 x10e3/uL (140-360); RED BLOOD COUNT 4.06 x10e6/uL (4.3-5.7); RED CELL DISTRIBUTION WIDTH 13.4 % (11.7-14.4)
[2022-06-29 05:03] LABS: ANION GAP 18.1 mmol/L (8-16); CALCIUM 8.6 mg/dL (8.4-10.2); CREATININE, SERUM 3.96 mg/dL (0.72-1.25); POTASSIUM 4.1 mmol/L (3.5-5.1)
[2022-06-29] MEDS: INSULIN LISPRO 100 UNIT/1 ML 3ML VIAL SQ SCH ×4 (08:25→21:36)
[2022-06-29] MEDS: PREDNISONE 5 MG TAB PO SCH (09:30)
[2022-06-29] MEDS: MIDODRINE HCL 5 MG TABLET PO SCH ×3 (09:30→16:20)
[2022-06-29] MEDS: SEVELAMER CARBONATE 800 MG TAB PO SCH ×3 (09:30→16:20)
[2022-06-29] MEDS: FAMOTIDINE 20 MG/2 ML VIAL IV SCH ×2 (09:30→16:20)
[2022-06-29] MEDS: CHOLECALCIFEROL 1,000 UNIT TAB PO SCH (09:30)
[2022-06-29] MEDS: CYCLOSPORINE 25 MG CAP PO SCH (09:40)
[2022-06-29] MEDS: INSULIN GLARGINE 100 UNITS/ML VIAL SQ SCH (21:00)
[2022-06-30 04:00] VITALS: BP 144/48
[2022-06-30 04:44] LABS: BASOPHILS % 0.2 % (0.0-1.0); HEMATOCRIT 33.5 % (38.2-49.6); LYMPHOCYTES # (AUTO) 0.7 (1.0-3.2); LYMPHOCYTES % 3.7 % (18.0-39.1); MEAN CORPUSCULAR HGB CONC 32.8 g/dL (31-35); MEAN CORPUSCULAR VOLUME 94.4 fL (81-99); MONOCYTES # (AUTO) 0.7 (0.2-0.8); NEUTROPHILS # (AUTO) 16.7 (2.1-6.9); NEUTROPHILS % 91.4 % (38.7-80.0); PLATELET COUNT 168 x10e3/uL (140-360); RED BLOOD COUNT 3.55 x10e6/uL (4.3-5.7); RED CELL DISTRIBUTION WIDTH 13.6 % (11.7-14.4)
[2022-06-30 05:01] LABS: ANION GAP 19.1 mmol/L (8-16); CREATININE, SERUM 5.61 mg/dL (0.72-1.25); POTASSIUM 4.1 mmol/L (3.5-5.1)
[2022-06-30 05:22] LABS: PHOSPHORUS 4.2 MG/DL (2.3-4.7)
[2022-06-30 05:45] LABS: THYROID STIMULATING HORMONE 1.023 uIU/mL (0.350-4.940)
[2022-06-30 08:22] VITALS: BP 142/55
[2022-06-30] MEDS: INSULIN GLARGINE 100 UNITS/ML VIAL SQ SCH (08:30)
[2022-06-30] MEDS: INSULIN LISPRO 100 UNIT/1 ML 3ML VIAL SQ SCH ×4 (08:30→19:49)
[2022-06-30] MEDS: PREDNISONE 5 MG TAB PO SCH (08:57)
[2022-06-30] MEDS: CHOLECALCIFEROL 1,000 UNIT TAB PO SCH (08:57)
[2022-06-30] MEDS: MIDODRINE HCL 5 MG TABLET PO SCH ×3 (08:58→16:00)
[2022-06-30] MEDS: SEVELAMER CARBONATE 800 MG TAB PO SCH ×3 (08:58→17:00)
[2022-06-30] MEDS: FAMOTIDINE 20 MG/2 ML VIAL IV SCH ×2 (08:58→17:00)
[2022-06-30] MEDS: CYCLOSPORINE 25 MG CAP PO SCH (09:00)
[2022-06-30 12:26] VITALS: BP 148/67
[2022-06-30 13:28] VITALS: BP 148/67
[2022-06-30 16:29] VITALS: BP 152/61
[2022-06-30 20:00] VITALS: BP 171/64
[2022-06-30] MEDS ORDERED: INSULIN GLARGINE 100 UNITS/ML VIAL SQ SCH (21:00)
[2022-07-01] VITALS: BP 169/56
[2022-07-01 05:24] VITALS: BP 136/62
[2022-07-01 06:00] LABS: BASOPHILS % 0.1 % (0.0-1.0); EOSINOPHILS % 0.1 % (0.0-6.0); HEMATOCRIT 34.9 % (38.2-49.6); HEMOGLOBIN 10.8 g/dL (14.0-18.0); LYMPHOCYTES # (AUTO) 1.1 (1.0-3.2); LYMPHOCYTES % 9.8 % (18.0-39.1); MEAN CORPUSCULAR HEMOGLOBIN 30.3 pg (28-32); MEAN CORPUSCULAR HGB CONC 30.9 g/dL (31-35); MONOCYTES # (AUTO) 0.6 (0.2-0.8); MONOCYTES % 5.5 % (4.4-11.3); NEUTROPHILS # (AUTO) 9.5 (2.1-6.9); PLATELET COUNT 154 x10e3/uL (140-360); RED BLOOD COUNT 3.56 x10e6/uL (4.3-5.7); RED CELL DISTRIBUTION WIDTH 13.3 % (11.7-14.4)
[2022-07-01] MEDS: INSULIN LISPRO 100 UNIT/1 ML 3ML VIAL SQ SCH ×4 (07:27→20:11)
[2022-07-01 07:38] LABS: ANION GAP 17.6 mmol/L (8-16); CALCIUM 8.2 mg/dL (8.4-10.2); CREATININE, SERUM 6.42 mg/dL (0.72-1.25); POTASSIUM 3.6 mmol/L (3.5-5.1)
[2022-07-01] MEDS: MIDODRINE HCL 5 MG TABLET PO SCH ×3 (08:00→15:24)
[2022-07-01] MEDS: SEVELAMER CARBONATE 800 MG TAB PO SCH ×3 (08:00→16:25)
[2022-07-01 08:19] VITALS: BP 166/66
[2022-07-01 08:22] VITALS: BP 166/66
[2022-07-01] MEDS: FAMOTIDINE 20 MG/2 ML VIAL IV SCH ×2 (09:00→16:25)
[2022-07-01] MEDS: INSULIN GLARGINE 100 UNITS/ML VIAL SQ SCH (09:00)
[2022-07-01] MEDS ORDERED: ONDANSETRON HCL 4 MG ORAL DISINTEGRATING TAB PO PRN (11:15)
[2022-07-01 11:57] VITALS: BP 185/82
[2022-07-01] MEDS: HYDRALAZINE HCL 20 MG/ML VIAL IV PRN ×2 (11:58→16:25)
[2022-07-01] MEDS: CYCLOSPORINE 25 MG CAP PO SCH (13:22)
[2022-07-01] MEDS: PREDNISONE 5 MG TAB PO SCH (13:23)
[2022-07-01] MEDS: CHOLECALCIFEROL 1,000 UNIT TAB PO SCH (13:23)
[2022-07-01] MEDS: ALLOPURINOL 100 MG TAB PO SCH (13:24)
[2022-07-01 15:27] VITALS: BP 176/59
[2022-07-02 08:00] VITALS: BP 185/48
[2022-07-02] MEDS: INSULIN GLARGINE 100 UNITS/ML VIAL SQ SCH (08:00)
[2022-07-02] MEDS: INSULIN LISPRO 100 UNIT/1 ML 3ML VIAL SQ SCH (08:00)
[2022-07-02 08:12] VITALS: BP 185/48
[2022-07-02] MEDS: SEVELAMER CARBONATE 800 MG TAB PO SCH (08:23)
[2022-07-02] MEDS: MIDODRINE HCL 5 MG TABLET PO SCH (08:23)
[2022-07-02] MEDS: CHOLECALCIFEROL 1,000 UNIT TAB PO SCH (08:57)
[2022-07-02] MEDS: CYCLOSPORINE 25 MG CAP PO SCH (08:57)
[2022-07-02] MEDS: FAMOTIDINE 20 MG/2 ML VIAL IV SCH (08:57)
[2022-07-02] MEDS: ALLOPURINOL 100 MG TAB PO SCH (08:57)
[2022-07-02] MEDS: PREDNISONE 5 MG TAB PO SCH (08:57)
== END 2022-07-02 10:38 | disposition home or self-care (01) | DRG 698 ==
LOC: ER 12:11 → ERHOLD 14:01 → MED/SURG 17:04
PROVIDERS: ADMIT Internal Medicine; ATTEND Internal Medicine
PROC: 0S9D3ZZ Drainage of Left Knee Joint, Percutaneous Approach (ICD-10-PCS; principal; 2022-06-28)
PROC: 5A1D70Z Performance of Urinary Filtration, Intermittent, Less than 6 Hours Per Day (ICD-10-PCS; 2022-06-28)
PROC: 3E043XZ Introduction of Vasopressor into Central Vein, Percutaneous Approach (ICD-10-PCS; 2022-06-28)
DX: T83.510A Infection and inflammatory reaction due to cystostomy catheter, initial encounter (principal); A41.9 Sepsis, unspecified organism; N18.6 End stage renal disease; J18.9 Pneumonia, unspecified organism; R65.21 Severe sepsis with septic shock; Z94.0 Kidney transplant status; I12.0 Hypertensive chronic kidney disease with stage 5 chronic kidney disease or end stage renal disease; E87.20 Acidosis, unspecified; N25.81 Secondary hyperparathyroidism of renal origin; E11.51 Type 2 diabetes mellitus with diabetic peripheral angiopathy without gangrene; E11.22 Type 2 diabetes mellitus with diabetic chronic kidney disease; Z99.2 Dependence on renal dialysis; N31.9 Neuromuscular dysfunction of bladder, unspecified; Z89.511 Acquired absence of right leg below knee; M17.12 Unilateral primary osteoarthritis, left knee; Z20.822 Contact with and (suspected) exposure to COVID-19; E11.319 Type 2 diabetes mellitus with unspecified diabetic retinopathy without macular edema; H54.7 Unspecified visual loss; Z98.85 Transplanted organ removal status; E86.0 Dehydration; H54.8 Legal blindness, as defined in USA
CPT/HCPCS: 36415; 71045; 71250; 74176; 80048; 80053; 81001; 82550; 82553; 82607; 82746; 82948; 83036; 83605; 83690; 83735; 83880; 84100; 84443; 84484; 84550; 85025; 86706; 87040; 87071; 87086; 87102; 87116; 87186; 87205; 87206; 87340; 89051; 89060; 90962; 93005; 94799; 96372; 99252; 99284; J0360; J0692; J1644; J1815; J2185; J2270; J2405; J2920; J7030; J7040; J7050; J7512; J7515; P9047; Q9963

== ENCOUNTER 2022-08-03 18:23 | Emergency (ER) | payer MEDICARE ==
[~2022-08-03] VITALS: Ht 167.6 cm; Wt 64.4 kg
[~2022-08-03 18:23] MED LIST changes: +BUMETANIDE1 MG PO; +VITAMIN D PO
[2022-08-03] MEDS ORDERED: CIPRO500 MG PO (18:36)
== END 2022-08-03 21:14 | disposition left against medical advice (07) ==
LOC: ER 18:35
DX: Z46.6 Encounter for fitting and adjustment of urinary device (principal)

== ENCOUNTER 2023-05-06 13:02 | Emergency (ER) | payer MEDICARE ==
[~2023-05-06] VITALS: Ht 167.6 cm; Wt 64.4 kg
[~2023-05-06 13:02] MED LIST changes: +CIPRO500 MG PO; +CLEOCIN HCL300 MG PO
[2023-05-06] MEDS ORDERED: Morphine 4mg INJECTION 4 MG/ML INJ IV STA (14:51)
[2023-05-06] MEDS ORDERED: ONDANSETRON HCL INJ 2MG/ML 2ML 2 MG/ML VIAL IV STA (14:51)
[2023-05-06 15:30] LABS: BASOPHILS % 0.1 % (0.0-1.0); EOSINOPHILS # (AUTO) 0.1 (0.0-0.4); EOSINOPHILS % 0.2 % (0.0-6.0); HEMATOCRIT 30.4 % (38.2-49.6); HEMOGLOBIN 9.8 g/dL (14.0-18.0); LYMPHOCYTES # (AUTO) 0.7 (1.0-3.2); LYMPHOCYTES % 2.5 % (18.0-39.1); MEAN CORPUSCULAR HEMOGLOBIN 30.9 pg (28-32); MEAN CORPUSCULAR HGB CONC 32.2 g/dL (31-35); MEAN CORPUSCULAR VOLUME 95.9 fL (81-99); MONOCYTES # (AUTO) 0.9 (0.2-0.8); MONOCYTES % 3.3 % (4.4-11.3); NEUTROPHILS # (AUTO) 24.2 (2.1-6.9); NEUTROPHILS % 93.3 % (38.7-80.0); PLATELET COUNT 288 x10e3/uL (140-360); RED BLOOD COUNT 3.17 x10e6/uL (4.3-5.7); RED CELL DISTRIBUTION WIDTH 13.2 % (11.7-14.4); WHITE BLOOD COUNT 26.01 x10e3/uL (4.8-10.8)
[2023-05-06] MEDS ORDERED: ACETAMINOPHEN 325 MG TAB PO STA (15:38)
[2023-05-06] MEDS ORDERED: SODIUM CHLORIDE 0.9% 1000ML 1,000 ML IV STA ×2 (15:38→16:43)
[2023-05-06 15:40] LABS: INR 1.06
[2023-05-06 15:41] LABS: PARTIAL THROMBOPLASTIN TIME 33.7 seconds (23.8-35.5)
[2023-05-06 15:49] LABS: ALBUMIN 2.3 g/dL (3.5-5.0); ALBUMIN/GLOBULIN RATIO 0.5 (0.8-2.0); ANION GAP 17.9 mmol/L (8-16); BILIRUBIN,TOTAL 0.8 mg/dL (0.2-1.2); CALCIUM 8.7 mg/dL (8.4-10.2); CREATININE, SERUM 4.3 mg/dL (0.72-1.25); TOTAL PROTEIN 7.3 g/dL (6.5-8.1)
[2023-05-06 15:52] LABS: POTASSIUM 2.9 mmol/L (3.5-5.1)
[2023-05-06 16:09] LABS: BILIRUBIN,URINE SMALL (NEGATIVE); CLARITY,URINE TURBID (CLEAR); COLOR,URINE AMBER (YELLOW); GLUCOSE, URINE NEGATIVE (NEGATIVE); KETONES,URINE TRACE (NEGATIVE); LEUKOCYTE ESTERASE ,URINE SMALL (NEGATIVE); NITRITE,URINE NEGATIVE (NEGATIVE); PH,URINE 5 (5 - 7); PROTEIN,URINE DIPSTICK >=300 (NEGATIVE); URINE UROBILINOGEN 0.2 mg/dL (0.2 - 1)
[2023-05-06 16:30] LABS: BACTERIA,URINE MODERATE /HPF; WBC,URINE (MAN) 21-50 /HPF (0-5); YEAST,URINE MODERATE
[2023-05-06] MEDS ORDERED: HEPARIN SOD (PORCINE) 5,000 UNIT/ML VIAL IV ONE (16:30)
[2023-05-06] MEDS ORDERED: HEPARIN 25,000 UNIT/D5W 250ML 1,200 UNIT in DEXTROSE 5% 250ML 250 ML IV SCH (16:30)
[2023-05-06 17:18] VITALS: BP 125/56; PULSE 80; RESP 16; TEMP 102
[2023-05-06 17:41] VITALS: O2SAT 100
[2023-05-06] MEDS ORDERED: DEXTROSE 50% SYRINGE 50 ML IV STA (17:42)
[2023-05-06] MEDS ORDERED: DEXTROSE 50% SYRINGE 50 ML IV ONE (17:45)
== END 2023-05-06 18:15 | disposition other institution (70) ==
LOC: ER 13:05
DX: A41.9 Sepsis, unspecified organism (principal); M25.461 Effusion, right knee; I77.1 Stricture of artery; E16.2 Hypoglycemia, unspecified; E87.6 Hypokalemia; N39.0 Urinary tract infection, site not specified; I12.0 Hypertensive chronic kidney disease with stage 5 chronic kidney disease or end stage renal disease; E11.22 Type 2 diabetes mellitus with diabetic chronic kidney disease; E11.65 Type 2 diabetes mellitus with hyperglycemia; N18.6 End stage renal disease; Z99.2 Dependence on renal dialysis; Z20.822 Contact with and (suspected) exposure to COVID-19; I69.351 Hemiplegia and hemiparesis following cerebral infarction affecting right dominant side
CPT/HCPCS: 36415; 73562; 73630; 80053; 81001; 82948; 83605; 85025; 85610; 85730; 87040; 87071; 87086; 87186; 87205; 93926; 93971; 99284; J1644; J2270; J2405; J2543; J7799; U0002

== ENCOUNTER 2024-02-16 19:08 | Emergency (ER) | payer MEDICARE ==
[~2024-02-16] VITALS: Ht 167.6 cm; Wt 64.4 kg
[2024-02-16 19:57] LABS: BASOPHILS % 0.3 % (0.0-1.0); EOSINOPHILS # (AUTO) 0.2 (0.0-0.4); EOSINOPHILS % 2.6 % (0.0-6.0); HEMATOCRIT 33.7 % (38.2-49.6); HEMOGLOBIN 10.4 g/dL (14.0-18.0); LYMPHOCYTES # (AUTO) 0.8 (1.0-3.2); LYMPHOCYTES % 10.5 % (18.0-39.1); MEAN CORPUSCULAR HEMOGLOBIN 31.2 pg (28-32); MEAN CORPUSCULAR HGB CONC 30.9 g/dL (31-35); MEAN CORPUSCULAR VOLUME 101.2 fL (81-99); MONOCYTES % 13.6 % (4.4-11.3); NEUTROPHILS # (AUTO) 5.4 (2.1-6.9); NEUTROPHILS % 72.7 % (38.7-80.0); PLATELET COUNT 160 x10e3/uL (140-360); RED BLOOD COUNT 3.33 x10e6/uL (4.3-5.7); WHITE BLOOD COUNT 7.41 x10e3/uL (4.8-10.8)
[2024-02-16 20:18] LABS: ALBUMIN 2.9 g/dL (3.5-5.0); ALBUMIN/GLOBULIN RATIO 0.6 (0.8-2.0); ANION GAP 25.9 mmol/L (8-16); BILIRUBIN,TOTAL 0.7 mg/dL (0.2-1.2); CALCIUM 9.3 mg/dL (8.4-10.2); CREATININE, SERUM 5.16 mg/dL (0.72-1.25); POTASSIUM 3.9 mmol/L (3.5-5.1); TOTAL PROTEIN 7.5 g/dL (6.5-8.1)
[2024-02-16] MEDS ORDERED: METRONIDAZOLE500 MG PO (22:33)
[2024-02-16 22:41] VITALS: PULSE 81; RESP 18; TEMP 98.4; O2SAT 100
== END 2024-02-16 22:50 | disposition home or self-care (01) ==
LOC: ER 19:18
DX: K52.9 Noninfective gastroenteritis and colitis, unspecified (principal); E11.22 Type 2 diabetes mellitus with diabetic chronic kidney disease; I12.0 Hypertensive chronic kidney disease with stage 5 chronic kidney disease or end stage renal disease; N18.6 End stage renal disease; Z99.2 Dependence on renal dialysis
CPT/HCPCS: 36415; 74176; 80053; 83690; 85025; 93005; 99284